=== PATIENT | female | born 1970 | race Two or more races ===

== ENCOUNTER 2017-11-30 14:52 | Inpatient (IN) | payer OTHER ==
[2017-11-30 17:02] VITALS: BMI 33.5
--- NOTE | 2017-11-30 19:05 | HP ---
CIWA Score - CIWA Score Nausea/Vomitin Muscle Tremors: 3 Anxiety: 2 Agitation: 2 Paroxysmal Sweats: 2 Orientation: 0-Oriented Tacttile Disturbances: 1-Very Mild Itch/Numbness Auditory Disturbances: 0-None Visual Disturbances: 2-Mild Sensitivity Headache: 2-Mild CIWA-Ar Total Score: 17 Admission ROS S - HPI Chief Complaint: " I was in [facility] yesterday and they send me here today" Allergies/Adverse Reactions: Allergies Allergy/AdvReac Type Severity Reaction Status Date / Time No Known Allergies Allergy Verified 11/30/17 17:40 History of Present Illness: 47 yo female with hx of alcohol dependence is here seeking detox. Patient reports she went yesterday to [facility] for vaginal bleed, reports menses is irregular and skips and 2-3 months at time. As per patient member was advised at [facility] to follow up with dramatic art teacher. Patient reports hx HTN with no medication tx, hx depression, denies any other medical problems. Patient denies suicidal / homicidal ideation. Denies hx of suicide attempts. Denies hx of seizures or blackouts. Reports last detox [facility] 2 years ago. Reports no significant period of sobriety. Exam Limitations: No Limitations - Ebola screening Have you traveled outside of the country in the last 21 days: No Have you had contact with anyone from an Ebola affected area: No Have you been sick,other than usual withdrawal symptoms: No Do you have a fever: No - Review of Systems Constitutional: Chills, Loss of Appetite, Changes in sleep, Unintentional Wgt. Loss EENT: reports: Blurred Vision (wears glasses) Respiratory: reports: No Symptoms reported Cardiac: reports: No Symptoms Reported GI: reports: See HPI, Constipated (reports occasional constipation with alternation diarrhea), Diarrhea, Nausea, Poor Appetite, Indigestion : reports: See HPI, Dysuria, Other (ocassional episodes of incontinence) Musculoskeletal: reports: Back Pain (bilateral pain, raiding down to down knees) , Joint Pain (both knees) Integumentary: reports: No Symptoms Reported Neuro: reports: Headache Endocrine: reports: Increased Thirst Hematology: reports: No Symptoms Reported Psychiatric: reports: Orientated x3, Depressed Other Systems: Reviewed and Negative Patient History - Patient Medical History Hx Anemia: No Hx Asthma: No Hx Chronic Obstructive Pulmonary Disease (COPD): No Hx Cancer: No Hx Cardiac Disorders: No Hx Congestive Heart Failure: No Hx Hypertension: Yes Hx Hypercholesterolemia: No Hx Pacemaker: No HX Cerebrovascular Accident: No Hx Seizures: No Hx Dementia: No Hx Diabetes: No Hx Gastrointestinal Disorders: No Hx Liver Disease: No Hx Genitourinary Disorders: Yes (irregular periods with heavy bleeding ) Hx Sexually Transmitted Disorders: No Hx Renal Disease (ESRD): No Hx Thyroid Disease: No Hx Hepatitis C: No Hx Depression: Yes Hx Suicide Attempt: No Hx Bipolar Disorder: No Hx Schizophrenia: No - Patient Surgical History Past Surgical History: No Hx Neurologic Surgery: No Hx Cataract Extraction: No Hx Cardiac Surgery: No Hx Lung Surgery: No Hx Breast Surgery: No Hx Breast Biopsy: No Hx Abdominal Surgery: No Hx Appendectomy: No Hx Cholecystectomy: No Hx Genitourinary Surgery: No Hx Section: No Hx Orthopedic Surgery: No Hx Hysterectomy: No Anesthesia Reaction: No - PPD History Previous Implant?: No Documented Results: Negative w/o proof PPD to be Administered?: Yes - Reproductive History Patient is a Female of Child Bearing Age (11 -55 yrs old): Yes Last Menstrual Period: 11/26/17 LMP comment: abnormal periods, skips months and with heavy flow Patient : No - Smoking Cessation Smoking history: Never smoked Have you smoked in the past 12 months: No Hx Chewing Tobacco Use: No Initiated information on smoking cessation: No - Substance & Tx. History Hx Alcohol Use: Yes Hx Substance Use: Yes Substance Use Type: Alcohol Hx Substance Use Treatment: Yes ([facility] 2 years ago ) - Substances Abused Alcohol Route: Oral Frequency: Daily Amount used: liquor- 1 pint Age of first use: 13 Date of Last Use: 11/29/17 Family Disease History - Family Disease History Family Disease History: Other: Father (, unkown ), Mother (, unkown ) Admission Physical Exam BHS - Vital Signs Vital Signs: Vital Signs - 24 hr 11/30/17 17:01 Temperature 98.5 F Pulse Rate 85 Respiratory 18 Rate Blood Pressure 168/109 - Physical General Appearance: Yes: Disheveled, Mild Distress, Tremorous (both hands), Irritable, Anxious, Other (malodorous) HEENTM: Yes: EOMI, Hearing grossly Normal, Normal ENT Inspection, Normocephalic , Normal Voice, JASVIR, Pharynx Normal, Tm's normal Respiratory: Yes: Chest Non-Tender, Lungs Clear, Normal Breath Sounds, No Respiratory Distress, No Accessory Muscle Use Neck: Yes: No masses,lesions,Nodules, Trachea in good position Breast: Yes: Breast Exam Deferred Cardiology: Yes: Regular Rhythm, Regular Rate Abdominal: Yes: Normal Bowel Sounds, Non Tender, Soft, Protuberent Genitourinary: Yes: Dysuria, Pain (ocassional periods of incontinence) Back: Yes: Normal Inspection Musculoskeletal: Yes: full range of Motion, Gait Steady, Pelvis Stable, Back pain Extremities: Yes: Normal Capillary Refill, Normal Inspection, Normal Range of Motion, Non-Tender Neurological: Yes: log cutter II-XII NML intact, Fully Oriented, Alert, Motor Strength 5/5, Depressed Affect Integumentary: Yes: Normal Color, Warm, Diaphoresis Lymphatic: Yes: Within Normal Limits - Diagnostic (1) Dysuria Current Visit: Yes Status: Acute (2) Back pain Current Visit: Yes Status: Acute Qualifiers: Back pain location: low back pain Chronicity: acute Back pain laterality : midline Sciatica presence: with sciatica Sciatica laterality: bilateral sciatica Qualified Code(s): M54.42 - Lumbago with sciatica, left side; M54.41 - Lumbago with sciatica, right side; M54.41 - Lumbago with sciatica, right side (3) Alcohol dependence with withdrawal Current Visit: Yes Status: Acute Qualifiers: Complication of substance-induced condition: uncomplicated Qualified Code(s ): F10.230 - Alcohol dependence with withdrawal, uncomplicated (4) Obese Current Visit: Yes Status: Acute Qualifiers: Obesity type: unspecified obesity type Body mass index: BMI 33.0-33.9 (5) Abnormal menses Current Visit: Yes Status: Acute (6) Anxious appearance Current Visit: Yes Status: Acute (7) Tremor due to drug withdrawal Current Visit: Yes Status: Acute Cleared for Admission S - Detox or Rehab [facility] Level of Care: Medically Managed Detox Regimen/Protocol: Librium [facility] Breath Alcohol Content Breath Alcohol Content: 0 Urine Pregancy Test - Result Urine Test Results: Negative- NO Line Present Urine Drug Screen - Results Drug Screen Negative: No Urine Drug Screen Results: BZO-Benzodiazepines
[2017-11-30] MEDS ORDERED: ACETAMINOPHEN 325 MG TABLET (FP) PO PRN (19:12)
[2017-11-30] MEDS ORDERED: MAGNESIUM HYDROX 2400MG/30ML ORAL SUSPENSION 30 ML CUP PO PRN (19:12)
[2017-11-30] MEDS ORDERED: chlordiazePOXIDE HCL 25 MG CAPSULE PO ONE (19:12)
[2017-11-30] MEDS ORDERED: chlordiazePOXIDE HCL 25 MG CAPSULE PO PRN (19:12)
[2017-11-30] MEDS ORDERED: P-EPHED 60MG/TRIPROLIDI 2.5MG TABLET PO PRN (19:12)
[2017-11-30] MEDS ORDERED: MENTHOL/PHENOL 1 EACH UD MM PRN (19:12)
[2017-11-30] MEDS ORDERED: LOPERAMIDE HCL 2 MG CAPSULE PO PRN (19:12)
[2017-11-30] MEDS ORDERED: MAGNESIUM CITRATE 300 ML BOTTLE PO PRN (19:12)
[2017-11-30] MEDS ORDERED: hydrOXYzine PAMOATE 50 MG CAPSULE (FP) PO PRN (19:12)
[2017-11-30] MEDS ORDERED: MAG HYDROX/AL HYDROX/SIMETH 30 ML UNIT-DOSE CUP PO PRN (19:12)
[2017-11-30] MEDS ORDERED: IBUPROFEN 400 MG TABLET (FP) PO PRN (19:12)
[2017-11-30] MEDS ORDERED: guaiFENesin/D-METHORPHAN HB 10 ML UNIT-DOSE CUPS PO PRN (19:12)
[2017-11-30] MEDS ORDERED: cloNIDine HCL 0.1 MG TABLET PO ONE (19:19)
[2017-11-30] MEDS: LIDOCAINE 5% TOPICAL PATCH TP SCH (20:08)
[2017-11-30] MEDS ORDERED: MELATONIN 5 MG TABLETS PO PRN (22:00)
[2017-11-30] MEDS ORDERED: LIDOCAINE PATCH REMOVAL MC SCH (22:00)
[2017-11-30] MEDS ORDERED: THIAMINE HCL 100 MG TABLET (FP) PO SCH (22:00)
[2017-11-30] MEDS: chlordiazePOXIDE HCL 25 MG CAPSULE PO SCH (22:33)
[2017-11-30 22:59] LABS: URINE APPEARANCE SLCLOUDY; URINE BILIRUBIN NEGATIVE (<2.0 mg/dL); URINE COLOR AMBER; URINE GLUCOSE (UA) NEGATIVE (NEGATIVE); URINE KETONE NEGATIVE (NEGATIVE); URINE LEUK ESTERASE NEGATIVE (NEGATIVE); URINE NITRITE NEGATIVE (NEGATIVE); URINE UROBILINOGEN 4.0 E.U/dl mg/dL (0.2-1.0)
[2017-11-30 23:18] LABS: URINE PROTEIN 1+ (NEGATIVE)
[2017-11-30 23:21] LABS: EPI CELLS RARE /HPF (FEW); URINE MUCUS RARE
[2017-12-01] MEDS: chlordiazePOXIDE HCL 25 MG CAPSULE PO SCH ×3 (05:26→17:27)
--- NOTE | 2017-12-01 09:42 | CONSULT ---
[facility] Psychiatric Consult - Data Date of interview: 12/01/17 Admission source: [facility] Identifying data: Patient is a 47 year old female, mother of six, unemployed, and currently homeless. This is patient's first admission to [facility]. Pt. admitted to for alcohol dependence. Substance Abuse History: Following information confirmed with Ms. Reagan: Smoking Cessation. Smoking history: Never smoked. Have you smoked in the past 12 months: No. Hx Chewing Tobacco Use: No. Initiated information on smoking cessation: No. - Substance & Tx. History. Hx Alcohol Use: Yes. Hx Substance Use: Yes. Substance Use Type: Alcohol. Hx Substance Use Treatment: Yes ( [facility] 2 years ago ). - Substances Abused. Alcohol. Route: Oral. Frequency: Daily. Amount used: liquor- 1 pint. Age of first use: 13. Date of Last Use: 11/29/17 Medical History: Hx Genitourinary Disorders: Yes (irregular periods with heavy bleeding) Psychiatric History: Patient denies h/o psychiatric hospitalizations, outpatient care, and suicide attempt. Patient reports poor sleep. Physical/Sexual Abuse/Trauma History: Denies. Mental Status Exam - Mental Status Exam Alert and Oriented to: Time, Place, Person Cognitive Function: Good Patient Appearance: Well Groomed Mood: Withdrawn, Euthymic Affect: Mood Congruent Patient Behavior: Cooperative Speech Pattern: Appropriate Voice Loudness: Normal Thought Process: Goal Oriented Thought Disorder: Not Present Hallucinations: Denies Suicidal Ideation: Denies Homicidal Ideation: Denies Insight/Judgement: Poor Sleep: Poorly Appetite: Fair Muscle strength/Tone: Normal Gait/Station: Normal Psychiatric Findings - Problem List ([facility] 1, 2,3) (1) Alcohol dependence with withdrawal Current Visit: Yes Status: Acute Qualifiers: Complication of substance-induced condition: uncomplicated Qualified Code(s ): F10.230 - Alcohol dependence with withdrawal, uncomplicated (2) Insomnia Current Visit: Yes Status: Acute - Initial Treatment Plan Initial Treatment Plan: Psychoeducation provided. Detoxification provided. Melatonin 5mg ordered by SERVICES ACCOUNT MANAGER. Melatonin 5mg not given to patient on first night. Pt. advised to ask for melatonin 5mg when accepting evening medications. Will continue to monitor.
[2017-12-01] MEDS ORDERED: PRENATAL VITAMINS W/ FOLIC ACID TABLET (FP) PO SCH (10:00)
--- NOTE | 2017-12-01 10:09 | PN ---
S CIWA - CIWA Score Nausea/Vomitin Muscle Tremors: 3 Anxiety: 3 Agitation: 2 Paroxysmal Sweats: 1-Minimal Palms Moist Orientation: 0-Oriented Tacttile Disturbances: 1-Very Mild Itch/Numbness Auditory Disturbances: 1-Very Mild Visual Disturbances: 0-None Headache: 2-Mild CIWA-Ar Total Score: 16 BHS Progress Note (SOAP) Subjective: ALERT,IRRITABLE,ANXIOUS,TREMOR,INTERRUPTED SLEEP Objective: 12/01/17 10:05 Vital Signs Temperature 98.2 F 12/01/17 08:45 Pulse Rate 68 12/01/17 08:45 Respiratory Rate 18 12/01/17 08:45 Blood Pressure 145/96 12/01/17 08:45 O2 Sat by Pulse Oximetry (%) EKG NSR PROLONG QT 380/446 12/01/17 10:08 Laboratory Last Values Urine Color Grisel 11/30/17 22:49 Urine Appearance Slcloudy 11/30/17 22:49 Urine pH 8.0 (5.0-8.0) 11/30/17 22:49 Ur Specific De[place] 1.018 (1.001-1.035) 11/30/17 22:49 Urine Protein 1+ (NEGATIVE) H 11/30/17 22:49 Urine Glucose (UA) Negative (NEGATIVE) 11/30/17 22:49 Urine Ketones Negative (NEGATIVE) 11/30/17 22:49 Urine Blood 3+ (NEGATIVE) H 11/30/17 22:49 Urine Nitrite Negative (NEGATIVE) 11/30/17 22:49 Urine Bilirubin Negative (<2.0 mg/dL) 11/30/17 22:49 Urine Urobilinogen 4.0 e.u/dl mg/dL (0.2-1.0) H 11/30/17 22:49 Ur Leukocyte Esterase Negative (NEGATIVE) 11/30/17 22:49 Urine WBC (Auto) 48 /hpf (3-5) 11/30/17 22:49 Urine RBC (Auto) 1083 /hpf (0-3) 11/30/17 22:49 Ur Epithelial Cells Rare /HPF (FEW) 11/30/17 22:49 Urine Mucus Rare 11/30/17 22:49 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
[2017-12-01 10:17] LABS: HEMATOCRIT 24.9 % (32.4-45.2); HEMOGLOBIN 7.9 GM/dL (10.7-15.3); MCH 25.2 pg (25.7-33.7); MCHC 31.7 g/dl (32.0-36.0); MEAN CELL VOLUME 79.3 fl (80-96); MEAN PLT VOLUME 8.3 fl (7.5-11.1); RBC 3.14 M/mm3 (3.60-5.2); RDW 20.9 % (11.6-15.6)
[2017-12-01 10:24] LABS: CHLORIDE 102 mmol/L (98-107); POTASSIUM 3.3 mmol/L (3.5-5.1); SODIUM 138 mmol/L (136-145)
[2017-12-01 10:40] LABS: ALK PHOS 59 U/L (45-117); ANION GAP 8 (8-16); BILIRUBIN,TOTAL 2.1 mg/dL (0.2-1.0); BLOOD UREA NITROGEN 5 mg/dL (7-18); CALCIUM 7.7 mg/dL (8.5-10.1); CO2 28 mmol/L (21-32); CREATININE 0.7 mg/dL (0.55-1.02); GLUCOSE,RANDOM 91 mg/dL (74-106); SGOT/AST 52 U/L (15-37); SGPT/ALT 24 U/L (12-78); TOT PROT 6.4 g/dl (6.4-8.2)
[2017-12-01 10:57] LABS: WHITE BLOOD COUNT 1.2 K/mm3 (4.0-10.0)
[2017-12-01] MEDS: LIDOCAINE 5% TOPICAL PATCH TP SCH (11:03)
--- NOTE | 2017-12-01 11:47 | PN ---
S Progress Note Note: Laboratory Last Values WBC 1.2 K/mm3 (4.0-10.0) L* 12/01/17 07:00 RBC 3.14 M/mm3 (3.60-5.2) L 12/01/17 07:00 Hgb 7.9 GM/dL (10.7-15.3) L 12/01/17 07:00 Hct 24.9 % (32.4-45.2) L 12/01/17 07:00 MCV 79.3 fl (80-96) L 12/01/17 07:00 MCH 25.2 pg (25.7-33.7) L 12/01/17 07:00 MCHC 31.7 g/dl (32.0-36.0) L 12/01/17 07:00 RDW 20.9 % (11.6-15.6) H 12/01/17 07:00 MPV 8.3 fl (7.5-11.1) 12/01/17 07:00 Sodium 138 mmol/L (136-145) 12/01/17 07:00 Potassium 3.3 mmol/L (3.5-5.1) L 12/01/17 07:00 Chloride 102 mmol/L (98-107) 12/01/17 07:00 Carbon Dioxide 28 mmol/L (21-32) 12/01/17 07:00 Anion Gap 8 (8-16) 12/01/17 07:00 BUN 5 mg/dL (7-18) L 12/01/17 07:00 Creatinine 0.7 mg/dL (0.55-1.02) 12/01/17 07:00 Creat Clearance w eGFR > 60 (>60) 12/01/17 07:00 Random Glucose 91 mg/dL (74-106) 12/01/17 07:00 Calcium 7.7 mg/dL (8.5-10.1) L 12/01/17 07:00 Total Bilirubin 2.1 mg/dL (0.2-1.0) H 12/01/17 07:00 AST 52 U/L (15-37) H 12/01/17 07:00 ALT 24 U/L (12-78) 12/01/17 07:00 Alkaline Phosphatase 59 U/L (45-117) 12/01/17 07:00 Total Protein 6.4 g/dl (6.4-8.2) 12/01/17 07:00 Albumin 3.0 g/dl (3.4-5.0) L 12/01/17 07:00 Urine Color Grisel 11/30/17 22:49 Urine Appearance Slcloudy 11/30/17 22:49 Urine pH 8.0 (5.0-8.0) 11/30/17 22:49 Ur Specific [place] 1.018 (1.001-1.035) 11/30/17 22:49 Urine Protein 1+ (NEGATIVE) H 11/30/17 22:49 Urine Glucose (UA) Negative (NEGATIVE) 11/30/17 22:49 Urine Ketones Negative (NEGATIVE) 11/30/17 22:49 Urine Blood 3+ (NEGATIVE) H 11/30/17 22:49 Urine Nitrite Negative (NEGATIVE) 11/30/17 22:49 Urine Bilirubin Negative (<2.0 mg/dL) 11/30/17 22:49 Urine Urobilinogen 4.0 e.u/dl mg/dL (0.2-1.0) H 11/30/17 22:49 Ur Leukocyte Esterase Negative (NEGATIVE) 11/30/17 22:49 Urine WBC (Auto) 48 /hpf (3-5) 11/30/17 22:49 Urine RBC (Auto) 1083 /hpf (0-3) 11/30/17 22:49 Ur Epithelial Cells Rare /HPF (FEW) 11/30/17 22:49 Urine Mucus Rare 11/30/17 22:49 patient have heavy vaginal bleeding for 6 days to er at [facility] for evaluation and treatment discussed with dr Gallego patient will be transported by [facility]
--- NOTE | 2017-12-01 12:01 | EKG ---
Test Reason : Blood Pressure : / mmHG Vent. Rate : 083 BPM Atrial Rate : 083 BPM P-R Int : 148 ms QRS Dur : 084 ms QT Int : 380 ms P-R-T Axes : 055 007 020 degrees QTc Int : 446 ms NORMAL SINUS RHYTHM NORMAL ECG NO PREVIOUS ECGS AVAILABLE Confirmed by MD PORFIRIO, BRODY ([id number]) on 12/01/2017 12:00:52 PM Referred By: Confirmed By:BRODY MONROY MD
[2017-12-01 12:28] LABS: PLATELET COUNT 32 K/MM3 (134-434)
[2017-12-01 14:03] VITALS: BP 138/95; PULSE 70; TEMP 97.9
[2017-12-01] MEDS ORDERED: chlordiazePOXIDE HCL 25 MG CAPSULE PO SCH (23:00)
[2017-12-02] MEDS ORDERED: chlordiazePOXIDE 5 MG CAPSULE PO SCH (23:00)
[2017-12-03] MEDS ORDERED: chlordiazePOXIDE HCL 10 MG CAPSULE PO SCH (23:00)
--- NOTE | 2017-12-04 16:29 | DS ---
[facility] Detox Discharge Summary Admission Date: 11/30/17 Discharge Date: 12/01/17 - History Present History: Alcohol Dependence Additional Comments: Routine blood work was done and results abnormal were called by the lab and entered on the screen for abnormal critical values and Dr Velarde was notified of the same. The doctor spoke to the pt and she stated to him that she is homeless and has had vaginal bleeding for six days and did not see a doctor or get treatment or tell anyone. She is alert and oriented, times three, no respiratory distress or compliants of pain or discomfort, BP 136/95, PULSE 76, RESP.[address] Velarde gave report to Dr Gallego in [facility] ER and this communications writer gave report to Monserrat Osman RN in the ER at and [facility] corina was called and the patient was transfered via a stretcher to [facility] accompanied by [facility] ambulance staff AT 12:15 PM and Km Swenson RN nurse manager [employer] was notifed of the transfer. At this time the pt. remains in [facility] ER for evaluation. Pertinent Past History: withdrawal sx, dehydration ,menorrhagia - Physical Exam Results Vital Signs: Vital Signs Temperature 97.9 F 12/01/17 12:00 Pulse Rate 70 12/01/17 12:00 Respiratory Rate 18 12/01/17 12:00 Blood Pressure 138/95 12/01/17 12:00 O2 Sat by Pulse Oximetry (%) Laboratory Tests 11/30/17 12/01/17 12/01/17 22:49 07:00 07:00 WBC 1.2 L* RBC 3.14 L Hgb 7.9 L Hct 24.9 L MCV 79.3 L MCH 25.2 L MCHC 31.7 L RDW 20.9 H Plt Count 32 L* MPV 8.3 Manual Slide Review Platelet Comment No clotting detected Sodium 138 Potassium 3.3 L Chloride 102 Carbon Dioxide 28 Anion Gap 8 BUN 5 L Creatinine 0.7 Creat Clearance w eGFR > 60 Random Glucose 91 Calcium 7.7 L Total Bilirubin 2.1 H AST 52 H ALT 24 Alkaline Phosphatase 59 Total Protein 6.4 Albumin 3.0 L Urine Color Grisel Urine Appearance Slcloudy Urine pH 8.0 Ur Specific [place] 1.018 Urine Protein 1+ H Urine Glucose (UA) Negative Urine Ketones Negative Urine Blood 3+ H Urine Nitrite Negative Urine Bilirubin Negative Urine Urobilinogen 4.0 e.u/dl H Ur Leukocyte Esterase Negative Urine WBC (Auto) 48 Urine RBC (Auto) 1083 Ur Epithelial Cells Rare Urine Mucus Rare RPR Titer 12/01/17 07:00 WBC RBC Hgb Hct MCV MCH MCHC RDW Plt Count MPV Manual Slide Review Platelet Comment Sodium Potassium Chloride Carbon Dioxide Anion Gap BUN Creatinine Creat Clearance w eGFR Random Glucose Calcium Total Bilirubin AST ALT Alkaline Phosphatase Total Protein Albumin Urine Color Urine Appearance Urine pH Ur Specific [place] Urine Protein Urine Glucose (UA) Urine Ketones Urine Blood Urine Nitrite Urine Bilirubin Urine Urobilinogen Ur Leukocyte Esterase Urine WBC (Auto) Urine RBC (Auto) Ur Epithelial Cells Urine Mucus RPR Titer Nonreactive hypokalemia, k suppllemented Pertinent Admission Physical Exam Findings: withdrawal sx, dehydration - Treatment Hospital Course: Detox Protocol Followed Patient has Accepted a Rehab Referral to: transferred to [facility] for work up for bleeding will return to rehab when me - Medication Discharge Medications: Ambulatory Orders Escitalopram Oxalate [Lexapro -] 5 mg PO DAILY #0 tablet 12/04/17 - Diagnosis (1) Alcohol dependence with withdrawal Status: Acute Qualifiers: Complication of substance-induced condition: uncomplicated Qualified Code(s ): F10.230 - Alcohol dependence with withdrawal, uncomplicated (2) Back pain Status: Acute Qualifiers: Back pain location: low back pain Chronicity: acute Back pain laterality : midline Sciatica presence: with sciatica Sciatica laterality: bilateral sciatica Qualified Code(s): M54.42 - Lumbago with sciatica, left side; M54.41 - Lumbago with sciatica, right side; M54.41 - Lumbago with sciatica, right side (3) Cholestasis Status: Acute (4) Depression Status: Acute (5) Insomnia Status: Acute (6) Major depression Status: Acute (7) Menometrorrhagia Status: Acute (8) Neutropenia Status: Acute (9) Obese Status: Acute Qualifiers: Obesity type: unspecified obesity type Body mass index: BMI 33.0-33.9 (10) Pancytopenia Status: Acute (11) Thrombocytopenia Status: Acute (12) Vaginal bleeding Status: Acute - AMA Did Patient Leave Against Medical Advice: No
== END 2017-12-01 16:03 | disposition short-term general hospital (02) | DRG 775 ==
LOC: YASAS 14:52 → Y6N 17:54
PROVIDERS: ADMIT Surgery; ATTEND Surgery
PROC: HZ2ZZZZ Detoxification Services for Substance Abuse Treatment (ICD-10-PCS; principal; 2017-11-30)
DX: F10.230 Alcohol dependence with withdrawal, uncomplicated (principal); F41.8 Other specified anxiety disorders; I10 Essential (primary) hypertension; G47.00 Insomnia, unspecified; G25.1 Drug-induced tremor; N93.9 Abnormal uterine and vaginal bleeding, unspecified; N92.6 Irregular menstruation, unspecified; R30.0 Dysuria; M54.42 Lumbago with sciatica, left side; E66.9 Obesity, unspecified; Z68.33 Body mass index [BMI] 33.0-33.9, adult; Z59.0 Homelessness
CPT/HCPCS: 36415; 80053; 81003; 81015; 85027; 86593; 93005; 93010; J0735

== ENCOUNTER 2017-12-01 12:29 | Inpatient (IN) | payer OTHER ==
--- NOTE | 2017-12-01 12:33 | PDOC ---
History of Present Illness - General Stated Complaint: VAGINAL BLEED Time Seen by Provider: 12/01/17 12:32 - History of Present Illness Initial Comments: 12/01/17 12:37 Ms. Reagan is a 47 yo female w/ pmh of HTN and alcohol abuse who presents from [facility] detox program (alcohol detox) after lab workup revealed concerning values (low). Sent here for further evaluation. She reportedly presented two days ago to [facility] for evaluation of vaginal bleed; presented to detox after being discharged with no interventions. Ms. Reagan reports that her menses are irregular and this is the 2nd time they have been intermittent. She does not believe she is menstruating normally at this time as she reports passing clots as well. Last librium dose was 50mg given at 1100. The patient denies chest pain, shortness of breath, headache and dizziness. Denies fever, chills, nausea, vomit, diarrhea and constipation. Denies dysuria, frequency, urgency and hematuria. Allergies: NKDA Past History - Past Medical History Allergies/Adverse Reactions: Allergies Allergy/AdvReac Type Severity Reaction Status Date / Time No Known Allergies Allergy Verified 11/30/17 17:40 Home Medications: Ambulatory Orders Acetaminophen [Tylenol] 650 mg PO Q4H PRN 12/01/17 Chlordiazepoxide [Librium -] 0 mg PO ASDIR 12/01/17 Lidocaine 5% Patch [Lidoderm Patch -] 1 patch TP DAILY 12/01/17 Melatonin 5 mg PO HS PRN 12/01/17 Vit/Iron Fum/Folic AC [ Tablet] 1 each PO DAILY 12/01/17 Thiamine HCl [B-1] 100 mg PO DAILY 12/01/17 hydrOXYzine PAMOATE [Vistaril -] 50 mg PO Q4H PRN 12/01/17 Anemia: No Asthma: No Cancer: No Cardiac Disorders: No CVA: No COPD: No CHF: No Dementia: No Diabetes: No GI Disorders: No Disorders: Yes (irregular periods with heavy bleeding ) HTN: Yes Hypercholesterolemia: No Kidney Stones: No Liver Disease: No Seizures: No Thyroid Disease: No - Surgical History Abdominal Surgery: No Appendectomy: No Cardiac Surgery: No Cholecystectomy: No Lung Surgery: No Neurologic Surgery: No Orthopedic Surgery: No - Suicide/Smoking/Psychosocial Hx Smoking History: Never smoked Have you smoked in the past 12 months: No Hx Alcohol Use: Yes Drug/Substance Use Hx: Yes Substance Use Type: Alcohol Hx Substance Use Treatment: Yes ([facility] 2 years ago ) Review of Systems - Review of Systems Comments:: 12/01/17 12:57 GENERAL/CONSTITUTIONAL: No fever or chills. No weakness. HEAD, EYES, EARS, NOSE AND THROAT: No change in vision. No ear pain or discharge. No sore throat. CARDIOVASCULAR: No chest pain or shortness of breath RESPIRATORY: No cough, wheezing, or hemoptysis. GASTROINTESTINAL: No nausea, vomiting, diarrhea or constipation. GENITOURINARY: Vaginal bleeding as described. No dysuria, frequency, or change in urination. MUSCULOSKELETAL: No joint or muscle swelling or pain. No neck or back pain. SKIN: No rash NEUROLOGIC: No headache, vertigo, loss of consciousness, or change in strength/ sensation. ENDOCRINE: No increased thirst. No abnormal weight change HEMATOLOGIC/LYMPHATIC: No anemia, easy bleeding, or history of blood clots. ALLERGIC/IMMUNOLOGIC: No hives or skin allergy. *Physical Exam - Physical Exam Comments: 12/01/17 12:58 GENERAL: Awake, alert, and fully oriented, in no acute distress HEAD: No signs of trauma, normocephalic, atraumatic EYES: PERRLA, EOMI, sclera anicteric, conjunctiva clear ENT: Auricles normal inspection, hearing grossly normal, nares patent, oropharynx clear without exudates. Moist mucosa NECK: Normal ROM, supple, no lymphadenopathy, JVD, or masses LUNGS: No distress, speaks full sentences, clear to auscultation bilaterally HEART: Regular rate and rhythm, normal S1 and S2, no murmurs, rubs or gallops, peripheral pulses normal and equal bilaterally. ABDOMEN: Soft, nontender, normoactive bowel sounds. No guarding, no rebound. No masses EXTREMITIES: Normal inspection, Normal range of motion, no edema. No clubbing or cyanosis. NEUROLOGICAL: Cranial nerves II through XII grossly intact. Normal speech, normal gait, no focal sensorimotor deficits SKIN: Warm, Dry, normal turgor, no rashes or lesions noted. : No CMT, no adnexal tenderness. Blood noted in vaginal vault, patient passing clots ED Treatment Course - LABORATORY CBC & Chemistry Diagram: 12/01/17 13:15 12/01/17 13:15 Medical Decision Making - Medical Decision Making 12/01/17 13:41 Ms. Reagan is a 47 yo female w/ pmh as described who presents for evaluation of pancytopenia with vaginal bleeding noted on labs taken at [facility] yesterday. Patient currently complaining of vaginal bleeding for 6 days and pancytopenia confirmed as below. Discussed transfusion with patient who agrees. 2 units PRBC' s ordered. Paged inpatient team for admission for further care. 12/01/17 16:07 Patient admitted to hospitalist for new onset pancytopenia and acute alcohol withdrawal. Laboratory Results - last 24 hr 12/01/17 12/01/17 12/01/17 13:15 13:15 13:15 WBC 1.4 L* RBC 3.13 L Hgb 7.9 L Hct 24.8 L MCV 79.3 L MCH 25.2 L MCHC 31.8 L RDW 20.6 H Plt Count 32 L* MPV 7.1 L D Total Counted 97 Neutrophils % No Result Required. Neutrophils % (Manual) 56.7 Band Neutrophils % 0.0 Lymphocytes % No Result Required. Lymphocytes % (Manual) 35.1 Monocytes % (Manual) 4 Eosinophils % (Manual) 1.0 Basophils % (Manual) 2.1 H Myelocytes % (Man) 0 Promyelocytes % (Man) 0 Blast Cells % (Manual) 0 Nucleated RBC % 0 Metamyelocytes 0 Platelet Estimate Decreased Polychromasia 1+ Anisocytosis 2+ PT with INR 12.90 INR 1.14 PTT (Actin FS) 33.1 Sodium Potassium Chloride Carbon Dioxide Anion Gap BUN Creatinine Creat Clearance w eGFR Random Glucose Calcium Magnesium Total Bilirubin AST ALT Alkaline Phosphatase Total Protein Albumin Serum , Qual Negative Urine Color Urine Appearance Urine pH Ur Specific [place] Urine Protein Urine Glucose (UA) Urine Ketones Urine Blood Urine Nitrite Urine Bilirubin Urine Urobilinogen Ur Leukocyte Esterase Urine WBC (Auto) Urine RBC (Auto) Ur Epithelial Cells Urine Mucus Blood Type Antibody Screen Crossmatch 12/01/17 12/01/17 12/01/17 13:15 13:15 13:15 WBC RBC Hgb Hct MCV MCH MCHC RDW Plt Count MPV Total Counted Neutrophils % Neutrophils % (Manual) Band Neutrophils % Lymphocytes % Lymphocytes % (Manual) Monocytes % (Manual) Eosinophils % (Manual) Basophils % (Manual) Myelocytes % (Man) Promyelocytes % (Man) Blast Cells % (Manual) Nucleated RBC % Metamyelocytes Platelet Estimate Polychromasia Anisocytosis PT with INR INR PTT (Actin FS) Sodium 137 Potassium 3.3 L Chloride 101 Carbon Dioxide 28 Anion Gap 8 BUN 5 L Creatinine 0.9 Creat Clearance w eGFR > 60 Random Glucose 105 Calcium 8.0 L Magnesium 1.6 L Total Bilirubin 1.9 H AST 65 H ALT 28 Alkaline Phosphatase 63 Total Protein 7.0 Albumin 3.3 L Serum , Qual Urine Color Urine Appearance Urine pH Ur Specific [place] Urine Protein Urine Glucose (UA) Urine Ketones Urine Blood Urine Nitrite Urine Bilirubin Urine Urobilinogen Ur Leukocyte Esterase Urine WBC (Auto) Urine RBC (Auto) Ur Epithelial Cells Urine Mucus Blood Type O POSITIVE Antibody Screen Negative Crossmatch See Detail 12/01/17 12/01/17 13:15 13:30 WBC RBC Hgb Hct MCV MCH MCHC RDW Plt Count MPV Total Counted Neutrophils % Neutrophils % (Manual) Band Neutrophils % Lymphocytes % Lymphocytes % (Manual) Monocytes % (Manual) Eosinophils % (Manual) Basophils % (Manual) Myelocytes % (Man) Promyelocytes % (Man) Blast Cells % (Manual) Nucleated RBC % Metamyelocytes Platelet Estimate Polychromasia Anisocytosis PT with INR INR PTT (Actin FS) Sodium Potassium Chloride Carbon Dioxide Anion Gap BUN Creatinine Creat Clearance w eGFR Random Glucose Calcium Magnesium Total Bilirubin AST ALT Alkaline Phosphatase Total Protein Albumin Serum , Qual Urine Color Grisel Urine Appearance Cloudy Urine pH 8.0 Ur Specific [place] 1.029 Urine Protein 2+ H Urine Glucose (UA) Negative Urine Ketones Negative Urine Blood 3+ H Urine Nitrite Negative Urine Bilirubin 2.0 Urine Urobilinogen 4.0 e.u/dl H Ur Leukocyte Esterase Negative Urine WBC (Auto) 5 Urine RBC (Auto) 5328 Ur Epithelial Cells Rare Urine Mucus Few Blood Type O POSITIVE Antibody Screen Crossmatch See Detail *DC/Admit/Observation/Transfer Diagnosis at time of Disposition: Pancytopenia Alcohol withdrawal Qualifiers: Complication of substance-induced condition: uncomplicated Qualified Code(s): F10.230 - Alcohol dependence with withdrawal, uncomplicated - Discharge Dispostion Decision to Admit order: Yes - Referrals - Patient Instructions - Post Discharge Activity
[2017-12-01 13:25] LABS: HEMATOCRIT 24.8 % (32.4-45.2); HEMOGLOBIN 7.9 GM/dL (10.7-15.3); MCH 25.2 pg (25.7-33.7); MCHC 31.8 g/dl (32.0-36.0); MEAN CELL VOLUME 79.3 fl (80-96); MEAN PLT VOLUME 7.1 fl (7.5-11.1); RBC 3.13 M/mm3 (3.60-5.2); RDW 20.6 % (11.6-15.6)
[2017-12-01 13:40] LABS: WHITE BLOOD COUNT 1.4 K/mm3 (4.0-10.0)
[2017-12-01 13:41] LABS: ADD RBC MORPHOLOGY YES; PLATELET COUNT 32 K/MM3 (134-434)
[2017-12-01 13:53] LABS: ALBUMIN 3.3 g/dl (3.4-5.0); ANION GAP 8 (8-16); BILIRUBIN,TOTAL 1.9 mg/dL (0.2-1.0); BLOOD UREA NITROGEN 5 mg/dL (7-18); CHLORIDE 101 mmol/L (98-107); CO2 28 mmol/L (21-32); CREATININE 0.9 mg/dL (0.55-1.02); GLUCOSE,RANDOM 105 mg/dL (74-106); POTASSIUM 3.3 mmol/L (3.5-5.1); SGOT/AST 65 U/L (15-37); SGPT/ALT 28 U/L (12-78); SODIUM 137 mmol/L (136-145)
[2017-12-01 13:54] LABS: ALK PHOS 63 U/L (45-117)
[2017-12-01 13:56] LABS: URINE APPEARANCE CLOUDY; URINE COLOR AMBER; URINE GLUCOSE (UA) NEGATIVE (NEGATIVE); URINE KETONE NEGATIVE (NEGATIVE); URINE LEUK ESTERASE NEGATIVE (NEGATIVE); URINE NITRITE NEGATIVE (NEGATIVE); URINE UROBILINOGEN 4.0 E.U/dl mg/dL (0.2-1.0)
[2017-12-01 13:58] LABS: URINE PROTEIN 2+ (NEGATIVE)
[2017-12-01 14:03] LABS: INR 1.14 (0.82-1.09); PROTHROMBIN TIME (PATIENT) 12.9 SEC (9.7-13.0)
[2017-12-01 14:05] LABS: ACTIVATED PTT 33.1 SECONDS (26.9-34.4)
[2017-12-01 14:15] LABS: EPI CELLS RARE /HPF (FEW); URINE MUCUS FEW
[2017-12-01 15:04] LABS: ANISOCYTOSIS 2+; PLATELET ESTIMATE DECREASED
--- NOTE | 2017-12-01 15:17 | PDOC ---
Attending Attestation - Resident Resident Name: JosephelinRealChirag - ED Attending Attestation I have performed the following: I have examined & evaluated the patient, The case was reviewed & discussed with the resident, I agree w/resident's findings & plan - HPI HPI: 12/01/17 15:12 47-year-old female history of alcohol abuse sent from [facility], where she was admitted for detox, for further evaluation of pancytopenia on CBC. Patient reports history of heavy menses, last episode began about 3 days ago. Per her report,has never had a tranfusion or seen a shelter monitor. - Physicial Exam PE: 12/01/17 15:14 Vital signs stable Abdomen benign Positive vaginal bleeding with clots - Medical Decision Making 12/01/17 15:15 Patient seen and evaluated with the resident. I agree with the overall evaluation, assessment, and management with the following summary of visit: 47-year-old female from [facility] for further evaluation of pancytopenia. Hemoglobin 7.9, we'll begin transfusion, patient consents wbc/plts also low, no fever. Heart Score/ECG Review #1 ECG reviewed & interpreted by me at: 12:53 General ECG Interpretation: Sinus Rhythm, Normal Rate (72), Normal Intervals ( qtc 475), No acute ischemic changes
--- NOTE | 2017-12-01 15:50 | HP ---
CHIEF COMPLAINT: Heavy menses with clots x 6 days PCP: None HISTORY OF PRESENT ILLNESS: 47 year-old female with a PMH significant for HTN, depression, ETOH abuse, chronic back pain, and menorrhagia. She is tearful at the time of this admission and providing limited information. She states she was on the street two days ago and passersby observed her bleeding (vaginally) through her clothes and called an ambulance. She was seen in [place] ED and was told her "counts are low" although she was not transfused. From [place] she was sent to [facility] for alcohol detox. She was evaluated at [facility] and sent to the ED earlier today for heavy menses with clots x 6 days and pancytopenia. She has gone through 4 pads today. Patient is homeless, lives on the streets. She was recently treated for dysuria in a hospital with IV antibiotics but she cannot be more specific. She goes to many different EDs for her health care. She takes no medications on a regular basis. Spoke with patient's , Heaven Reagan [phone]. Patient has been drinking and living on the streets and in shelters for 4-5 years. Their 5 children live with him. She does not take drugs as far as he knows. He last saw her August 2017. He recalls her mentioning she has heavy vaginal bleeding and that doctors told her she has to be careful. ER course was notable for: (1) WBC 1.4, platelets 32k, Hgb 7.9 (2) Total bili 1.9, AST 65 (3) K 3.3, Mg 1.6 (4) ECG: (5) Transfused 1U PRBC Recent Travel: No PAST MEDICAL HISTORY: Hypertension Depression ETOH abuse Chronic back pain Menorrhagia PAST SURGICAL HISTORY: None reported Social History: Mother of six, unemployed, homeless; and children live in [place] Smoking: never Alcohol: drinks daily; last drink 11/29/17; last detox [place] x 2 years Drugs: denies Family History: Allergies No Known Allergies Allergy (Verified 11/30/17 17:40) HOME MEDICATIONS: Home Medications Medication Instructions Recorded Acetaminophen [Tylenol] 650 mg PO Q4H PRN 12/01/17 Chlordiazepoxide [Librium -] 0 mg PO ASDIR 12/01/17 Lidocaine 5% Patch [Lidoderm Patch 1 patch TP DAILY 12/01/17 -] Melatonin 5 mg PO HS PRN 12/01/17 Vit/Iron Fum/Folic AC 1 each PO DAILY 12/01/17 [ Tablet] Thiamine HCl [B-1] 100 mg PO DAILY 12/01/17 hydrOXYzine PAMOATE [Vistaril -] 50 mg PO Q4H PRN 12/01/17 REVIEW OF SYSTEMS: cannot reliably obtain PHYSICAL EXAMINATION Vital Signs - 24 hr 12/01/17 12/01/17 12:38 13:28 Temperature 98.2 F Pulse Rate 73 Pulse Rate [ 67 Apical] Respiratory 18 18 Rate Blood Pressure 118/76 Blood Pressure 137/92 [Left Arm] O2 Sat by Pulse 100 100 Oximetry (%) GENERAL: Awake, alert, and fully oriented, in no acute distress. HEAD: Normal with no signs of trauma. EYES: Pupils equal, round and reactive to light, extraocular movements intact, sclera anicteric, conjunctiva clear. No lid lag. EARS, NOSE, THROAT: Ears normal, nares patent, oropharynx clear without exudates. Moist mucous membranes. NECK: Normal range of motion, supple without lymphadenopathy, JVD, or masses. LUNGS: Breath sounds equal, clear to auscultation bilaterally. No wheezes, and no crackles. No accessory muscle use. HEART: Regular rate and rhythm, normal S1 and S2 without murmur, rub or gallop. ABDOMEN: Soft, nontender, not distended, normoactive bowel sounds, no guarding, no rebound MUSCULOSKELETAL: Normal range of motion at all joints. No bony deformities or tenderness. No CVA tenderness. UPPER EXTREMITIES: 2+ pulses, warm, well-perfused. No cyanosis. No clubbing. No peripheral edema. LOWER EXTREMITIES: 2+ pulses, warm, well-perfused. No calf tenderness. No peripheral edema. NEUROLOGICAL: Cranial nerves II-XII intact. Normal speech. Mild bilateral hand tremors, no asterixis. PSYCHIATRIC: Tearful. Flat affect. "I have nobody." SKIN: Warm, dry, normal turgor Laboratory Results - last 24 hr 12/01/17 12/01/17 12/01/17 13:15 13:15 13:15 WBC 1.4 L* RBC 3.13 L Hgb 7.9 L Hct 24.8 L MCV 79.3 L MCH 25.2 L MCHC 31.8 L RDW 20.6 H Plt Count 32 L* MPV 7.1 L D Total Counted 97 Neutrophils % No Result Required. Neutrophils % (Manual) 56.7 Band Neutrophils % 0.0 Lymphocytes % No Result Required. Lymphocytes % (Manual) 35.1 Monocytes % (Manual) 4 Eosinophils % (Manual) 1.0 Basophils % (Manual) 2.1 H Myelocytes % (Man) 0 Promyelocytes % (Man) 0 Blast Cells % (Manual) 0 Nucleated RBC % 0 Metamyelocytes 0 Platelet Estimate Decreased Polychromasia 1+ Anisocytosis 2+ PT with INR 12.90 INR 1.14 PTT (Actin FS) 33.1 Sodium Potassium Chloride Carbon Dioxide Anion Gap BUN Creatinine Creat Clearance w eGFR Random Glucose Calcium Magnesium Total Bilirubin AST ALT Alkaline Phosphatase Total Protein Albumin Serum , Qual Negative Urine Color Urine Appearance Urine pH Ur Specific [place] Urine Protein Urine Glucose (UA) Urine Ketones Urine Blood Urine Nitrite Urine Bilirubin Urine Urobilinogen Ur Leukocyte Esterase Urine WBC (Auto) Urine RBC (Auto) Ur Epithelial Cells Urine Mucus Blood Type Antibody Screen Crossmatch 12/01/17 12/01/17 12/01/17 13:15 13:15 13:15 WBC RBC Hgb Hct MCV MCH MCHC RDW Plt Count MPV Total Counted Neutrophils % Neutrophils % (Manual) Band Neutrophils % Lymphocytes % Lymphocytes % (Manual) Monocytes % (Manual) Eosinophils % (Manual) Basophils % (Manual) Myelocytes % (Man) Promyelocytes % (Man) Blast Cells % (Manual) Nucleated RBC % Metamyelocytes Platelet Estimate Polychromasia Anisocytosis PT with INR INR PTT (Actin FS) Sodium 137 Potassium 3.3 L Chloride 101 Carbon Dioxide 28 Anion Gap 8 BUN 5 L Creatinine 0.9 Creat Clearance w eGFR > 60 Random Glucose 105 Calcium 8.0 L Magnesium 1.6 L Total Bilirubin 1.9 H AST 65 H ALT 28 Alkaline Phosphatase 63 Total Protein 7.0 Albumin 3.3 L Serum , Qual Urine Color Urine Appearance Urine pH Ur Specific [place] Urine Protein Urine Glucose (UA) Urine Ketones Urine Blood Urine Nitrite Urine Bilirubin Urine Urobilinogen Ur Leukocyte Esterase Urine WBC (Auto) Urine RBC (Auto) Ur Epithelial Cells Urine Mucus Blood Type O POSITIVE Antibody Screen Negative Crossmatch See Detail 12/01/17 12/01/17 13:15 13:30 WBC RBC Hgb Hct MCV MCH MCHC RDW Plt Count MPV Total Counted Neutrophils % Neutrophils % (Manual) Band Neutrophils % Lymphocytes % Lymphocytes % (Manual) Monocytes % (Manual) Eosinophils % (Manual) Basophils % (Manual) Myelocytes % (Man) Promyelocytes % (Man) Blast Cells % (Manual) Nucleated RBC % Metamyelocytes Platelet Estimate Polychromasia Anisocytosis PT with INR INR PTT (Actin FS) Sodium Potassium Chloride Carbon Dioxide Anion Gap BUN Creatinine Creat Clearance w eGFR Random Glucose Calcium Magnesium Total Bilirubin AST ALT Alkaline Phosphatase Total Protein Albumin Serum , Qual Urine Color Grisel Urine Appearance Cloudy Urine pH 8.0 Ur Specific [place] 1.029 Urine Protein 2+ H Urine Glucose (UA) Negative Urine Ketones Negative Urine Blood 3+ H Urine Nitrite Negative Urine Bilirubin 2.0 Urine Urobilinogen 4.0 e.u/dl H Ur Leukocyte Esterase Negative Urine WBC (Auto) 5 Urine RBC (Auto) 5328 Ur Epithelial Cells Rare Urine Mucus Few Blood Type O POSITIVE Antibody Screen Crossmatch See Detail ASSESSMENT/PLAN 47 year-old female with a PMH significant for HTN, depression, ETOH abuse, chronic back pain, and menorrhagia. Admitted for pancytopenia and acute alcohol withdrawal. Pancytopenia --transfuse 2U PRBCs, Lasix in between --transfuse 1U platelets --retic count, LDH, haptoglobin, fibrinogen --B12, folate, iron studies --Dr. Odom to follow Acute alcohol withdrawal --continuing librium taper started at [facility] --check ammonia level --continue folate, thiamine Hypertension --has h/o HTN, on no meds, likely exacerbated by ETOH withdrawal --metoprolol 25mg x 1 now, reassess Hyperbilirubinemia Transaminitis --US liver pending --GI consult requested Menorrhagia --transfuse as above --FUR POLISHER consult requested Depression --not on meds, denies h/o psych hospitalizations Dispo: Patient requested her be notified. Spoke with patient's , Heaven Reagan [phone] (see above). Please keep notified of progress. Full code. Visit type - Emergency Visit Emergency Visit: Yes ED Registration Date: 12/01/17 Care time: The patient presented to the Emergency Department on the above date and was hospitalized for further evaluation of their emergent condition. - New Patient This patient is new to me today: Yes Date on this admission: 12/02/17 - Critical Care Critical Care patient: No Hospitalist Screening - Colonoscopy Questionnaire Colonoscopy Questionnaire: Colonoscopy Questionnaire - Patient: 50 - 75 years old and never had a screening colonoscopy: No History of colon or rectal polyps, or CA: No History of IBD, Crohn's disease or UC: No History of abdominal radiation therapy as a child: No - Relative: 1 with colon or rectal CA, or polyps at age 60 or younger: Unknown Colon or rectal CA diagnosed at age 45 or younger: Unknown Multiple relatives with colon or rectal CA: Unknown - Outcome: Screening Result: Negative Screen
[2017-12-01] MEDS ORDERED: MELATONIN 5 MG TABLETS PO PRN (16:45)
[2017-12-01] MEDS ORDERED: hydrOXYzine PAMOATE 50 MG CAPSULE (FP) PO PRN (16:45)
--- NOTE | 2017-12-01 17:07 | EKG ---
Test Reason : Blood Pressure : / mmHG Vent. Rate : 072 BPM Atrial Rate : 072 BPM P-R Int : 148 ms QRS Dur : 092 ms QT Int : 434 ms P-R-T Axes : 034 002 013 degrees QTc Int : 475 ms NORMAL SINUS RHYTHM CANNOT RULE OUT ANTERIOR INFARCT , AGE UNDETERMINED ABNORMAL ECG Confirmed by MD PORFIRIO, BRODY ([id number]) on 12/01/2017 5:07:41 PM Referred By: Confirmed By:BRODY MONROY MD
[2017-12-01] MEDS ORDERED: MAGNESIUM SULF 50% (8.12 MEQ/2 ML-1 GM VIAL) IVPB ONE (17:09)
[2017-12-01] MEDS ORDERED: chlordiazePOXIDE HCL 25 MG CAPSULE PO PRN (17:15)
[2017-12-01] MEDS ORDERED: MAGNESIUM SULFATE IN WATER 2 GM/50 ML IVPB IVPB ONE (17:15)
[2017-12-01] MEDS ORDERED: MAGNESIUM SULF 50% (8.12 MEQ/2 ML-1 GM VIAL) ONE (17:29)
[2017-12-01] MEDS ORDERED: chlordiazePOXIDE HCL 25 MG CAPSULE ONE (17:29)
[2017-12-01] MEDS ORDERED: FUROSEMIDE 40 MG/4 ML INJECTABLE VIAL ONE (17:30)
[2017-12-01] MEDS ORDERED: FUROSEMIDE 40 MG/4 ML INJECTABLE VIAL IVPUSH ONE (17:30)
[2017-12-01] MEDS ORDERED: POTASSIUM CHLORIDE ORAL LIQUID 20 MEQ/15 ML ONE (17:30)
[2017-12-01] MEDS ORDERED: chlordiazePOXIDE HCL 25 MG CAPSULE PO ONE (17:30)
[2017-12-01] MEDS: POTASSIUM CHLORIDE ORAL LIQUID 20 MEQ/15 ML PO SCH ×2 (17:39→23:20)
[2017-12-01 18:59] LABS: N-TERMINAL BNP 439.64 pg/ml (5-125)
[2017-12-01] MEDS ORDERED: METOPROLOL TARTRATE 25 MG TABLET (FP) PO STA (19:11)
[2017-12-01] MEDS ORDERED: METOPROLOL TARTRATE 25 MG TABLET (FP) ONE (19:47)
[2017-12-01 21:57] VITALS: BMI 31.8
[2017-12-01] MEDS: LIDOCAINE PATCH REMOVAL MC SCH (22:18)
[2017-12-01] MEDS: chlordiazePOXIDE HCL 25 MG CAPSULE PO SCH (23:20)
[2017-12-02] MEDS: chlordiazePOXIDE HCL 25 MG CAPSULE PO SCH ×3 (05:32→16:45)
--- NOTE | 2017-12-02 08:58 | CON.GI ---
Consult Consult Specialty:: GI Reason for Consultation:: history of alcohol abuse, transaminitis, cholestasis - History of Present Illness History of Present Illness: chart reviewed. Events noted. As per initial intake: 47 year-old female with a PMH significant for HTN, depression, ETOH abuse, chronic back pain, and menorrhagia. She is tearful at the time of this admission and providing limited information. She states she was on the street two days ago and passersby observed her bleeding (vaginally) through her clothes and called an ambulance. She was seen in [place] ED and was told her "counts are low" although she was not transfused. From [place] she was sent to [facility] for alcohol detox. She was evaluated at [facility] and sent to the ED earlier today for heavy menses with clots x 6 days and pancytopenia. She has gone through 4 pads today. Patient is homeless, lives on the streets. She was recently treated for dysuria in a hospital with IV antibiotics but she cannot be more specific. She goes to many different EDs for her health care. She takes no medications on a regular basis. ...Patient has been drinking and living on the streets and in shelters for 4-5 years. Their 5 children live with Her . She does not take drugs as far as he knows. He last saw her August 2017. He recalls her mentioning she has heavy vaginal bleeding and that doctors told her she has to be careful. at the time of this encountered the patient appears to be depressed, crying confirms the above history. Denies having formal liver workup in the past. reports no significant gastrointestinal family history. On admission she is noted to have microcytic, hypochromic anemia with normal ferritin. Thrombocytopenia, neutropenia. No iron profile available at this time. She also noted to have mild cholestasis with total bili slightly elevated. AST twice the ALT. Normal alk phos and PT INR. Fatty liver on ultrasound of the abdomen. - History Source History Provided By: Patient, Medical Record, Caregiver - Past Medical History ...LMP: 11/26/17 ...: No - Alcohol/Substance Use Hx Alcohol Use: Yes - Smoking History Smoking history: Never smoked Have you smoked in the past 12 months: No Home Medications - Allergies Allergies/Adverse Reactions: Allergies Allergy/AdvReac Type Severity Reaction Status Date / Time No Known Allergies Allergy Verified 11/30/17 17:40 - Home Medications Home Medications: Ambulatory Orders Acetaminophen [Tylenol] 650 mg PO Q4H PRN 12/01/17 Chlordiazepoxide [Librium -] 0 mg PO ASDIR 12/01/17 Lidocaine 5% Patch [Lidoderm Patch -] 1 patch TP DAILY 12/01/17 Melatonin 5 mg PO HS PRN 12/01/17 Vit/Iron Fum/Folic AC [ Tablet] 1 each PO DAILY 12/01/17 Thiamine HCl [B-1] 100 mg PO DAILY 12/01/17 hydrOXYzine PAMOATE [Vistaril -] 50 mg PO Q4H PRN 12/01/17 Family Disease History - Family Disease History Family Disease History: Other: Father (, unkown ), Mother (, unkown ) Physical Exam-GI Vital Signs: Vital Signs Temperature 98.6 F 12/02/17 05:55 Pulse Rate 65 12/02/17 05:55 Respiratory Rate 20 12/02/17 05:55 Blood Pressure 145/87 12/02/17 05:55 O2 Sat by Pulse Oximetry (%) 99 12/01/17 22:10 Constitutional: Yes: Calm Eyes: Yes: Conjunctiva Clear HENT: Yes: Atraumatic Neck: Yes: Supple Cardiovascular: No: Bradycardia, Tachycardia Respiratory: Yes: Regular Gastrointestinal Inspection: Yes: Distention. No: Ascites ...Auscultate: Yes: Normoactive Bowel Sounds ...Palpate: Yes: Soft. No: Firm/Rigid, Guarding, Mass, Tenderness, Tenderness, Rebound Neurological: Yes: Alert, Oriented. No: Asterixis, Confusion, Lethargy, Tremors Labs: CBC, BMP 12/01/17 13:15 12/01/17 13:15 INR, PTT INR 1.14 (0.82-1.09) 12/01/17 13:15 Fibrinogen 186.0 mg/dL (238-498) L 12/01/17 18:25 Laboratory Last Values WBC 1.4 K/mm3 (4.0-10.0) L* 12/01/17 13:15 RBC 3.13 M/mm3 (3.60-5.2) L 12/01/17 13:15 Hgb 7.9 GM/dL (10.7-15.3) L 12/01/17 13:15 Hct 24.8 % (32.4-45.2) L 12/01/17 13:15 MCV 79.3 fl (80-96) L 12/01/17 13:15 MCH 25.2 pg (25.7-33.7) L 12/01/17 13:15 MCHC 31.8 g/dl (32.0-36.0) L 12/01/17 13:15 RDW 20.6 % (11.6-15.6) H 12/01/17 13:15 Plt Count 32 K/MM3 (134-434) L* 12/01/17 13:15 MPV 7.1 fl (7.5-11.1) L D 12/01/17 13:15 Total Counted 97 12/01/17 13:15 Neutrophils % No Result Required. 12/01/17 13:15 Neutrophils % (Manual) 56.7 % (42.8-82.8) 12/01/17 13:15 Band Neutrophils % 0.0 % 12/01/17 13:15 Lymphocytes % No Result Required. 12/01/17 13:15 Lymphocytes % (Manual) 35.1 % (8-40) 12/01/17 13:15 Monocytes % (Manual) 4 % (3.8-10.2) 12/01/17 13:15 Eosinophils % (Manual) 1.0 % (0-4.5) 12/01/17 13:15 Basophils % (Manual) 2.1 % (0-2.0) H 12/01/17 13:15 Myelocytes % (Man) 0 % (0-2) 12/01/17 13:15 Promyelocytes % (Man) 0 % (0-2) 12/01/17 13:15 Blast Cells % (Manual) 0 % (0-0) 12/01/17 13:15 Nucleated RBC % 0 % (0-0) 12/01/17 13:15 Metamyelocytes 0 % (0-2) 12/01/17 13:15 Platelet Estimate Decreased 12/01/17 13:15 Polychromasia 1+ 12/01/17 13:15 Anisocytosis 2+ 12/01/17 13:15 Retic Count 1.92 % (0.5-1.5) H 12/01/17 18:25 PT with INR 12.90 SEC (9.7-13.0) 12/01/17 13:15 INR 1.14 (0.82-1.09) 12/01/17 13:15 PTT (Actin FS) 33.1 SECONDS (26.9-34.4) 12/01/17 13:15 Fibrinogen 186.0 mg/dL (238-498) L 12/01/17 18:25 Sodium 137 mmol/L (136-145) 12/01/17 13:15 Potassium 3.3 mmol/L (3.5-5.1) L 12/01/17 13:15 Chloride 101 mmol/L (98-107) 12/01/17 13:15 Carbon Dioxide 28 mmol/L (21-32) 12/01/17 13:15 Anion Gap 8 (8-16) 12/01/17 13:15 BUN 5 mg/dL (7-18) L 12/01/17 13:15 Creatinine 0.9 mg/dL (0.55-1.02) 12/01/17 13:15 Creat Clearance w eGFR > 60 (>60) 12/01/17 13:15 Random Glucose 105 mg/dL (74-106) 12/01/17 13:15 Calcium 8.0 mg/dL (8.5-10.1) L 12/01/17 13:15 Magnesium 1.6 mg/dL (1.8-2.4) L 12/01/17 13:15 Ferritin 64.500 ng/ml (6.9-282.5) 12/01/17 18:25 Total Bilirubin 1.9 mg/dL (0.2-1.0) H 12/01/17 13:15 AST 65 U/L (15-37) H 12/01/17 13:15 ALT 28 U/L (12-78) 12/01/17 13:15 Alkaline Phosphatase 63 U/L (45-117) 12/01/17 13:15 Ammonia < 10 umol/L (11-32) L 12/01/17 18:25 LD Total 172 U/L (84-246) 12/01/17 18:25 B-Natriuretic Peptide 439.64 pg/ml (5-125) H 12/01/17 18:25 Total Protein 7.0 g/dl (6.4-8.2) 12/01/17 13:15 Albumin 3.3 g/dl (3.4-5.0) L 12/01/17 13:15 Serum , Qual Negative 12/01/17 13:15 Urine Color [place] 12/01/17 13:30 Urine Appearance Cloudy 12/01/17 13:30 Urine pH 8.0 (5.0-8.0) 12/01/17 13:30 Ur Specific [place] 1.029 (1.001-1.035) 12/01/17 13:30 Urine Protein 2+ (NEGATIVE) H 12/01/17 13:30 Urine Glucose (UA) Negative (NEGATIVE) 12/01/17 13:30 Urine Ketones Negative (NEGATIVE) 12/01/17 13:30 Urine Blood 3+ (NEGATIVE) H 12/01/17 13:30 Urine Nitrite Negative (NEGATIVE) 12/01/17 13:30 Urine Bilirubin 2.0 (<2.0 mg/dL) 12/01/17 13:30 Urine Urobilinogen 4.0 e.u/dl mg/dL (0.2-1.0) H 12/01/17 13:30 Ur Leukocyte Esterase Negative (NEGATIVE) 12/01/17 13:30 Urine WBC (Auto) 5 /hpf (3-5) 12/01/17 13:30 Urine RBC (Auto) 5328 /hpf (0-3) 12/01/17 13:30 Ur Epithelial Cells Rare /HPF (FEW) 12/01/17 13:30 Urine Mucus Few 12/01/17 13:30 Blood Type O POSITIVE 12/01/17 13:15 Antibody Screen Negative 12/01/17 13:15 Crossmatch See Detail 12/01/17 13:15 Imaging - Results Ultrasound: Report Reviewed Problem List - Problems (1) Vaginal bleeding Code(s): N93.9 - ABNORMAL UTERINE AND VAGINAL BLEEDING, UNSPECIFIED (2) Cholestasis Code(s): K83.1 - OBSTRUCTION OF BILE DUCT (3) Alcohol dependence with withdrawal Code(s): F10.239 - ALCOHOL DEPENDENCE WITH WITHDRAWAL, UNSPECIFIED Qualifiers: Complication of substance-induced condition: uncomplicated Qualified Code(s ): F10.230 - Alcohol dependence with withdrawal, uncomplicated (4) Thrombocytopenia Code(s): D69.6 - THROMBOCYTOPENIA, UNSPECIFIED (5) Neutropenia Code(s): D70.9 - NEUTROPENIA, UNSPECIFIED Assessment/Plan A 47-year-old female with history of alcohol abuse admitted with vaginal bleeding. Noted to have thrombocytopenia, neutropenia, microcytic, hypochromic anemia and mild cholestasis with a normal coagulation profile. ? Alcohol-related bone marrow suppression. no clear cut picture suggesting liver cirrhosis. Possible alcoholic hepatitis, alcoholic fatty liver disease. Recommend evaluation by SIGN BUILDER and hematology. agree with substance withdrawal protocol. Will obtain viral and autoimmune serologies, iron profile. Will follow.
--- NOTE | 2017-12-02 09:30 | CONSULT ---
Consult Consult Specialty:: Hematology - History of Present Illness History of Present Illness: 47-year-old female history of alcohol abuse sent from [facility], where she was admitted for detox, for further evaluation of pancytopenia on CBC. Patient reports history of heavy menses, last episode began about 3 days ago. Pt seen and examined d/w yesterday - History Source History Provided By: Patient, Medical Record - Past Medical History ...LMP: 11/26/17 ...: No - Alcohol/Substance Use Hx Alcohol Use: Yes - Smoking History Smoking history: Never smoked Have you smoked in the past 12 months: No Home Medications - Allergies Allergies/Adverse Reactions: Allergies Allergy/AdvReac Type Severity Reaction Status Date / Time No Known Allergies Allergy Verified 11/30/17 17:40 - Home Medications Home Medications: Ambulatory Orders Acetaminophen [Tylenol] 650 mg PO Q4H PRN 12/01/17 Chlordiazepoxide [Librium -] 0 mg PO ASDIR 12/01/17 Lidocaine 5% Patch [Lidoderm Patch -] 1 patch TP DAILY 12/01/17 Melatonin 5 mg PO HS PRN 12/01/17 Vit/Iron Fum/Folic AC [ Tablet] 1 each PO DAILY 12/01/17 Thiamine HCl [B-1] 100 mg PO DAILY 12/01/17 hydrOXYzine PAMOATE [Vistaril -] 50 mg PO Q4H PRN 12/01/17 Family Disease History - Family Disease History Family Disease History: Other: Father (, unkown ), Mother (, unkown ) Physical Exam Vital Signs: Vital Signs Temperature 98.6 F 12/02/17 05:55 Pulse Rate 65 12/02/17 05:55 Respiratory Rate 20 12/02/17 05:55 Blood Pressure 145/87 12/02/17 05:55 O2 Sat by Pulse Oximetry (%) 99 12/01/17 22:10 Constitutional: Yes: Mild Distress Eyes: Yes: Tearing HENT: Yes: Atraumatic, Normocephalic Neck: Yes: Supple Cardiovascular: Yes: Regular Rate and Rhythm Respiratory: Yes: Regular, CTA Bilaterally Gastrointestinal: Yes: Normal Bowel Sounds, Soft, Abdomen, Obese Edema: No Labs: CBC, BMP 12/01/17 13:15 12/01/17 13:15 Imaging - Results Ultrasound: Report Reviewed Problem List - Problems (1) Thrombocytopenia Code(s): D69.6 - THROMBOCYTOPENIA, UNSPECIFIED (2) Major depression Code(s): F32.9 - MAJOR DEPRESSIVE DISORDER, SINGLE EPISODE, UNSPECIFIED Qualifiers: Major depression recurrence: single episode Major depression episode severity: severe Psychotic features: without psychotic features (3) Depression Code(s): F32.9 - MAJOR DEPRESSIVE DISORDER, SINGLE EPISODE, UNSPECIFIED (4) Pancytopenia Code(s): D61.818 - OTHER PANCYTOPENIA (5) Alcohol dependence with withdrawal Code(s): F10.239 - ALCOHOL DEPENDENCE WITH WITHDRAWAL, UNSPECIFIED Qualifiers: Complication of substance-induced condition: uncomplicated Qualified Code(s ): F10.230 - Alcohol dependence with withdrawal, uncomplicated (6) Tremor due to drug withdrawal Code(s): G25.1 - DRUG-INDUCED TREMOR (7) Abnormal menses Code(s): N92.6 - IRREGULAR MENSTRUATION, UNSPECIFIED Assessment/Plan Pancytopenia: Alcohol induced BM suppression likely Supportive care w/u including---B12, folate, ldh, JAH regular transfusion threshold Vaginal bleeding worsened in the setting of thrombocytopenia appreciate INSURANCE CONSULTANT c/s daily CBC Very tearful psych consult called.
[2017-12-02] MEDS ORDERED: PATIENT'S OWN MEDICATION (NON-FORMULARY) (Prenatal Vit/Iron Fum/Folic Ac [Prenatal Tablet] PO SCH (10:00)
[2017-12-02] MEDS: THIAMINE HCL 100 MG TABLET (FP) PO SCH (10:10)
[2017-12-02] MEDS ORDERED: PT OWN MED DRAWER 7, Y5N ONE (10:13)
--- NOTE | 2017-12-02 10:22 | CON.OBG ---
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 History of Present Illness: pt c/o heavy bleeding for 7 days now Current menst hx for 6 months : Irregular cycle 2-3 months x 7-10 days heavy flow , no pain except backache Changes 4 pads/day . passes blood clots Past MH before 6 months cycle q 28-30 days x bleeding for 3 days . patient is not currently sexually active Denies h/o STD & Contraception Past OB HX : 6 ( 1988, 1991, 1997, 1998, 2000, 2010.) LD at [facility] 1 ind Ab, 2 sp ab Last Engineering Program Manager visit 7 years ago, did not see anyone since LD Does not know pap smear history She denies h/o fibroids or ovarian cysts inpast no h/o D&C in past - History Source History Provided By: Patient, Medical Record Limitations to Obtaining History: No Limitations - Past Medical History Cardio/Vascular: Yes: HTN (no meds ) Gastrointestinal: Yes: Other (denies h/o vomoting blood or rectal bleeding ) Renal/: Yes: Other (denies urinary symptoms ) Reproductive: No: Fibroids, PID, Polycystic Ovary Syndrome, Postmenopausal ...LMP: 11/26/17 ...: No ...: 9 () ...Para: 6 (LD 2010. ) Heme/Onc: Yes: Anemia Infectious Disease: No: STD's Psych: Yes: Depression Musculoskeletal: Yes: Chronic low back pain - Past Surgical History Past Surgical History: Yes: None - Alcohol/Substance Use Hx Alcohol Use: Yes (drinks 1 pint /day/ since 2010 , ) History of Substance Use: reports: None - Smoking History Smoking history: Never smoked Have you smoked in the past 12 months: No - Social History Usual Living Arrangement: Other (she states she left her spouse because he was cheating on her , she lived in different shelters , sometimes homeless.) Home Medications - Allergies Allergies/Adverse Reactions: Allergies Allergy/AdvReac Type Severity Reaction Status Date / Time No Known Allergies Allergy Verified 11/30/17 17:40 - Home Medications Home Medications: Ambulatory Orders Acetaminophen [Tylenol] 650 mg PO Q4H PRN 12/01/17 Chlordiazepoxide [Librium -] 0 mg PO ASDIR 12/01/17 Lidocaine 5% Patch [Lidoderm Patch -] 1 patch TP DAILY 12/01/17 Melatonin 5 mg PO HS PRN 12/01/17 Vit/Iron Fum/Folic AC [ Tablet] 1 each PO DAILY 12/01/17 Thiamine HCl [B-1] 100 mg PO DAILY 12/01/17 hydrOXYzine PAMOATE [Vistaril -] 50 mg PO Q4H PRN 12/01/17 Family Disease History - Family Disease History Family Disease History: Other: Father (, unkown ), Mother (, unkown ) Physical Exam-CULINARY DIRECTOR Vital Signs: Vital Signs Temperature 98.6 F 12/02/17 05:55 Pulse Rate 65 12/02/17 05:55 Respiratory Rate 20 12/02/17 05:55 Blood Pressure 145/87 12/02/17 05:55 O2 Sat by Pulse Oximetry (%) 99 12/01/17 22:10 Constitutional: Yes: Obese, Pallor Eyes: Yes: PERRL, Other (muddy sclera) Gastrointestinal: Yes: Abdomen, Obese. No: Tenderness, Tenderness, Epigastrium , Tenderness, Rebound Renal/: Yes: Vaginal Bleeding. No: Pelvis: Yes: WNL. No: Tenderness External Genitalia: Yes: Normal Internal Exam Deferred: Yes Vaginal Exam: Yes: Bleeding (with clots) Cervix: Yes: Bleeding (from cervix , no mass noted). No: Cerv Motion Tenderness Uterus: Yes: Freely Moveable, Anteverted, Enlarged (6-8 weeks size), Firm. No: Tender Adnexa: Normal: Bilateral, Not Palpable: Bilateral (not tender ) Breast(s): Yes: WNL. No: Mass Extremities: No: Calf Tenderness Edema: No Integumentary: Yes: Jaundice. No: Petechiae Psychiatric: Yes: Alert, Oriented, Other (tearing & sad) Labs: CBC, BMP 12/01/17 13:15 12/01/17 13:15 Laboratory Tests 12/01/17 12/01/17 12/01/17 13:15 13:15 13:15 RBC 3.13 L Neutrophils % (Manual) 56.7 Lymphocytes % (Manual) 35.1 Retic Count PT with INR 12.90 INR 1.14 PTT (Actin FS) 33.1 Fibrinogen Total Bilirubin AST ALT Alkaline Phosphatase Ammonia Total Protein Albumin Serum , Qual Negative Urine Protein Urine Blood Urine Bilirubin Urine Urobilinogen Ur Leukocyte Esterase Urine WBC (Auto) Urine RBC (Auto) 12/01/17 12/01/17 12/01/17 13:15 13:30 18:25 RBC Neutrophils % (Manual) Lymphocytes % (Manual) Retic Count PT with INR INR PTT (Actin FS) Fibrinogen 186.0 L Total Bilirubin 1.9 H AST 65 H ALT 28 Alkaline Phosphatase 63 Ammonia Total Protein 7.0 Albumin 3.3 L Serum , Qual Urine Protein 2+ H Urine Blood 3+ H Urine Bilirubin 2.0 Urine Urobilinogen 4.0 e.u/dl H Ur Leukocyte Esterase Negative Urine WBC (Auto) 5 Urine RBC (Auto) 5328 12/01/17 12/01/17 18:25 18:25 RBC Neutrophils % (Manual) Lymphocytes % (Manual) Retic Count 1.92 H PT with INR INR PTT (Actin FS) Fibrinogen Total Bilirubin AST ALT Alkaline Phosphatase Ammonia < 10 L Total Protein Albumin Serum , Qual Urine Protein Urine Blood Urine Bilirubin Urine Urobilinogen Ur Leukocyte Esterase Urine WBC (Auto) Urine RBC (Auto) Problem List - Problems (1) Menometrorrhagia Code(s): N92.1 - EXCESSIVE AND FREQUENT MENSTRUATION WITH IRREGULAR CYCLE (2) Pancytopenia Code(s): D61.818 - OTHER PANCYTOPENIA (3) Neutropenia Code(s): D70.9 - NEUTROPENIA, UNSPECIFIED (4) Thrombocytopenia Code(s): D69.6 - THROMBOCYTOPENIA, UNSPECIFIED (5) Alcohol withdrawal Code(s): F10.239 - ALCOHOL DEPENDENCE WITH WITHDRAWAL, UNSPECIFIED (6) Depression Code(s): F32.9 - MAJOR DEPRESSIVE DISORDER, SINGLE EPISODE, UNSPECIFIED Assessment/Plan 47 yrs menometrorrhgia secondary to pancytopenia , thrombocytopenia anemai . anovulatory cycles perimenopause , resulting in menorrhagia & anemia . fatty liver secondary to alcoholism depression Recommend : Pelvic /TVSono r/o uterine pathology, em thickness, ovarian pathology ( polycystic ovaries) Em pathology will be prudent to obtain by doing diagnostic as well as therapeutic D&C but due to thrombocytopenia surgical procedure can not be done . emperically will start progesterone in Megace 40 mg po daily to stop bleeding will follow up agree with psyche consult
[2017-12-02] MEDS: PRENATAL VITAMINS W/ FOLIC ACID TABLET (FP) PO SCH ×2 (10:24→12:52)
[2017-12-02 10:27] LABS: BASO % 0.5 % (0-2.0); EOS % 2.9 % (0-4.5); HEMATOCRIT 34.7 % (32.4-45.2); LYMPH % 48.9 % (8-40); MCH 25.8 pg (25.7-33.7); MCHC 31.7 g/dl (32.0-36.0); MEAN CELL VOLUME 81.4 fl (80-96); MEAN PLT VOLUME 9.1 fl (7.5-11.1); MONO % 7.8 % (3.8-10.2); NEUT % 39.9 % (42.8-82.8); PLATELET COUNT 50 K/MM3 (134-434); RBC 4.27 M/mm3 (3.60-5.2); WHITE BLOOD COUNT 2.2 K/mm3 (4.0-10.0)
[2017-12-02 10:40] LABS: ALBUMIN 3.6 g/dl (3.4-5.0); ALK PHOS 74 U/L (45-117); ANION GAP 7 (8-16); BLOOD UREA NITROGEN 5 mg/dL (7-18); CHLORIDE 102 mmol/L (98-107); CO2 28 mmol/L (21-32); CREATININE 0.8 mg/dL (0.55-1.02); GLUCOSE,RANDOM 84 mg/dL (74-106); MAGNESIUM 2.4 mg/dL (1.8-2.4); POTASSIUM 3.6 mmol/L (3.5-5.1); SGOT/AST 75 U/L (15-37); SGPT/ALT 31 U/L (12-78); SODIUM 137 mmol/L (136-145); TOT PROT 7.7 g/dl (6.4-8.2)
--- NOTE | 2017-12-02 11:14 | PN ---
Physical Exam: SUBJECTIVE: Patient seen and examined sitting on edge of bed. OBJECTIVE: Vital Signs Period Temp Pulse Resp BP Sys/Infante Pulse Ox Last 24 Hr 97.9 F-99.1 F 63-80 18-20 118-168/75-102 98-100 GENERAL: The patient is awake, alert. Tearful. LUNGS: Breath sounds equal, clear to auscultation bilaterally, no wheezes, no crackles, no accessory muscle use. HEART: Regular rate and rhythm, S1, S2 without murmur, rub or gallop. ABDOMEN: Soft, nontender, nondistended, normoactive bowel sounds, no guarding, no rebound EXTREMITIES: 2+ pulses, warm, well-perfused, no edema. NEUROLOGICAL: Cranial nerves II through XII grossly intact. Normal speech, steady gait. Hand tremors resolved. No signs of withdrawal. SKIN: Warm, dry, normal turgor Laboratory Results - last 24 hr 12/01/17 12/01/17 12/01/17 13:15 13:15 13:15 WBC 1.4 L* RBC 3.13 L Hgb 7.9 L Hct 24.8 L MCV 79.3 L MCH 25.2 L MCHC 31.8 L RDW 20.6 H Plt Count 32 L* MPV 7.1 L D Total Counted 97 Neutrophils % No Result Required. Neutrophils % (Manual) 56.7 Band Neutrophils % 0.0 Lymphocytes % No Result Required. Lymphocytes % (Manual) 35.1 Monocytes % Monocytes % (Manual) 4 Eosinophils % Eosinophils % (Manual) 1.0 Basophils % Basophils % (Manual) 2.1 H Myelocytes % (Man) 0 Promyelocytes % (Man) 0 Blast Cells % (Manual) 0 Nucleated RBC % 0 Metamyelocytes 0 Platelet Estimate Decreased Polychromasia 1+ Anisocytosis 2+ Retic Count PT with INR 12.90 INR 1.14 PTT (Actin FS) 33.1 Fibrinogen Sodium Potassium Chloride Carbon Dioxide Anion Gap BUN Creatinine Creat Clearance w eGFR Random Glucose Calcium Magnesium Ferritin Total Bilirubin AST ALT Alkaline Phosphatase Ammonia LD Total B-Natriuretic Peptide Total Protein Albumin Serum , Qual Negative Urine Color Urine Appearance Urine pH Ur Specific [place] Urine Protein Urine Glucose (UA) Urine Ketones Urine Blood Urine Nitrite Urine Bilirubin Urine Urobilinogen Ur Leukocyte Esterase Urine WBC (Auto) Urine RBC (Auto) Ur Epithelial Cells Urine Mucus Blood Type Antibody Screen Crossmatch 12/01/17 12/01/17 12/01/17 13:15 13:15 13:15 WBC RBC Hgb Hct MCV MCH MCHC RDW Plt Count MPV Total Counted Neutrophils % Neutrophils % (Manual) Band Neutrophils % Lymphocytes % Lymphocytes % (Manual) Monocytes % Monocytes % (Manual) Eosinophils % Eosinophils % (Manual) Basophils % Basophils % (Manual) Myelocytes % (Man) Promyelocytes % (Man) Blast Cells % (Manual) Nucleated RBC % Metamyelocytes Platelet Estimate Polychromasia Anisocytosis Retic Count PT with INR INR PTT (Actin FS) Fibrinogen Sodium 137 Potassium 3.3 L Chloride 101 Carbon Dioxide 28 Anion Gap 8 BUN 5 L Creatinine 0.9 Creat Clearance w eGFR > 60 Random Glucose 105 Calcium 8.0 L Magnesium 1.6 L Ferritin Total Bilirubin 1.9 H AST 65 H ALT 28 Alkaline Phosphatase 63 Ammonia LD Total B-Natriuretic Peptide Total Protein 7.0 Albumin 3.3 L Serum , Qual Urine Color Urine Appearance Urine pH Ur Specific [place] Urine Protein Urine Glucose (UA) Urine Ketones Urine Blood Urine Nitrite Urine Bilirubin Urine Urobilinogen Ur Leukocyte Esterase Urine WBC (Auto) Urine RBC (Auto) Ur Epithelial Cells Urine Mucus Blood Type O POSITIVE Antibody Screen Negative Crossmatch See Detail 12/01/17 12/01/17 12/01/17 13:15 13:30 18:25 WBC RBC Hgb Hct MCV MCH MCHC RDW Plt Count MPV Total Counted Neutrophils % Neutrophils % (Manual) Band Neutrophils % Lymphocytes % Lymphocytes % (Manual) Monocytes % Monocytes % (Manual) Eosinophils % Eosinophils % (Manual) Basophils % Basophils % (Manual) Myelocytes % (Man) Promyelocytes % (Man) Blast Cells % (Manual) Nucleated RBC % Metamyelocytes Platelet Estimate Polychromasia Anisocytosis Retic Count PT with INR INR PTT (Actin FS) Fibrinogen Sodium Potassium Chloride Carbon Dioxide Anion Gap BUN Creatinine Creat Clearance w eGFR Random Glucose Calcium Magnesium Ferritin 64.500 Total Bilirubin AST ALT Alkaline Phosphatase Ammonia LD Total B-Natriuretic Peptide Total Protein Albumin Serum , Qual Urine Color Grisel Urine Appearance Cloudy Urine pH 8.0 Ur Specific [place] 1.029 Urine Protein 2+ H Urine Glucose (UA) Negative Urine Ketones Negative Urine Blood 3+ H Urine Nitrite Negative Urine Bilirubin 2.0 Urine Urobilinogen 4.0 e.u/dl H Ur Leukocyte Esterase Negative Urine WBC (Auto) 5 Urine RBC (Auto) 5328 Ur Epithelial Cells Rare Urine Mucus Few Blood Type O POSITIVE Antibody Screen Crossmatch See Detail 12/01/17 12/01/17 12/01/17 18:25 18:25 18:25 WBC RBC Hgb Hct MCV MCH MCHC RDW Plt Count MPV Total Counted Neutrophils % Neutrophils % (Manual) Band Neutrophils % Lymphocytes % Lymphocytes % (Manual) Monocytes % Monocytes % (Manual) Eosinophils % Eosinophils % (Manual) Basophils % Basophils % (Manual) Myelocytes % (Man) Promyelocytes % (Man) Blast Cells % (Manual) Nucleated RBC % Metamyelocytes Platelet Estimate Polychromasia Anisocytosis Retic Count 1.92 H PT with INR INR PTT (Actin FS) Fibrinogen 186.0 L Sodium Potassium Chloride Carbon Dioxide Anion Gap BUN Creatinine Creat Clearance w eGFR Random Glucose Calcium Magnesium Ferritin Total Bilirubin AST ALT Alkaline Phosphatase Ammonia LD Total 172 B-Natriuretic Peptide 439.64 H Total Protein Albumin Serum , Qual Urine Color Urine Appearance Urine pH Ur Specific [place] Urine Protein Urine Glucose (UA) Urine Ketones Urine Blood Urine Nitrite Urine Bilirubin Urine Urobilinogen Ur Leukocyte Esterase Urine WBC (Auto) Urine RBC (Auto) Ur Epithelial Cells Urine Mucus Blood Type Antibody Screen Crossmatch 12/01/17 12/02/17 12/02/17 18:25 10:20 10:20 WBC 2.2 L D RBC 4.27 D Hgb 11.0 D Hct 34.7 D MCV 81.4 MCH 25.8 MCHC 31.7 L RDW 20.0 H Plt Count 50 L D MPV 9.1 D Total Counted Neutrophils % 39.9 L Neutrophils % (Manual) Band Neutrophils % Lymphocytes % 48.9 H Lymphocytes % (Manual) Monocytes % 7.8 Monocytes % (Manual) Eosinophils % 2.9 Eosinophils % (Manual) Basophils % 0.5 Basophils % (Manual) Myelocytes % (Man) Promyelocytes % (Man) Blast Cells % (Manual) Nucleated RBC % Metamyelocytes Platelet Estimate Polychromasia Anisocytosis Retic Count PT with INR INR PTT (Actin FS) Fibrinogen Sodium 137 Potassium 3.6 Chloride 102 Carbon Dioxide 28 Anion Gap 7 L BUN 5 L Creatinine 0.8 Creat Clearance w eGFR > 60 Random Glucose 84 Calcium 8.0 L Magnesium 2.4 Ferritin Total Bilirubin 2.0 H AST 75 H ALT 31 Alkaline Phosphatase 74 Ammonia < 10 L LD Total B-Natriuretic Peptide Total Protein 7.7 Albumin 3.6 Serum , Qual Urine Color Urine Appearance Urine pH Ur Specific [place] Urine Protein Urine Glucose (UA) Urine Ketones Urine Blood Urine Nitrite Urine Bilirubin Urine Urobilinogen Ur Leukocyte Esterase Urine WBC (Auto) Urine RBC (Auto) Ur Epithelial Cells Urine Mucus Blood Type Antibody Screen Crossmatch Active Medications Generic Name Dose Route Start Last Admin Trade Name Freq PRN Reason Stop Dose Admin Chlordiazepoxide HCl 25 mg 12/01/17 23:00 12/02/17 10:10 Librium - PO 12/02/17 17:01 25 mg [id number] CON Administration Chlordiazepoxide HCl 15 mg 12/02/17 23:00 Librium - PO 12/03/17 17:01 [id number] CON Chlordiazepoxide HCl 25 mg 12/01/17 17:15 Librium - PO 12/04/17 17:14 Q4H PRN WITHDRAWAL(CONT SUBST) Hydroxyzine Pamoate 50 mg 12/01/17 16:45 Vistaril - PO Q4H PRN itcheness Lidocaine 1 patch 12/02/17 10:00 Lidoderm Patch - TP DAILY [facility] Megestrol Acetate 40 mg 12/02/17 11:00 Megace - PO DAILY CON Melatonin 5 mg 12/01/17 16:45 Melatonin PO HS PRN sleeplessness Miscellaneous 1 each 12/01/17 22:00 12/01/17 22:18 Lidoderm Patch Removal MC 1 each DAILY@2200 CON Administration Multivit/Folic Acid/Iron 1 tab 12/02/17 10:00 12/02/17 10:24 Vitamins (Sjr) - PO Not Given DAILY CON Thiamine HCl 100 mg 12/02/17 10:00 12/02/17 10:10 Vitamin B1 - PO 100 mg DAILY CON Administration ASSESSMENT/PLAN 47 year-old female with a PMH significant for HTN, depression, ETOH abuse, chronic back pain, and menorrhagia. Admitted for pancytopenia and acute alcohol withdrawal. Pancytopenia --possibly secondary to alcohol-induced bone marrow suppression --transfused 2U PRBCs and 1U platelets on 12/01; Hgb 7.9-->11.0, plts 32k--> 50k --retic count, LDH, haptoglobin, fibrinogen --B12, folate, iron studies --Dr. Odom following Acute alcohol withdrawal --continuing librium taper started at [facility] --ammonia level <10 --continue folate, thiamine Hypertension --has h/o HTN, on no meds --was hypertensive on admission, given dose metoprolol with good effect --continue to monitor closely Hyperbilirubinemia Transaminitis --US liver: fatty liver --GI following Menorrhagia --seen and evaluated by Dr. Bro --pelvic and transvaginal US ordered --start Megace Depression --not on meds, denies h/o psych hospitalizations, confirmed by --psych consult requested --aware Megace can worsen depression, monitor closely Dispo: Discussed with NEELAM Wang. If psych makes diagnosis of depression, should explore if we can get patient into a dual diagnosis treatment facility, e.g. [facility]. Full Code. Visit type - Emergency Visit Emergency Visit: Yes ED Registration Date: 12/01/17 Care time: The patient presented to the Emergency Department on the above date and was hospitalized for further evaluation of their emergent condition. - New Patient This patient is new to me today: No - Critical Care Critical Care patient: No
[2017-12-02] MEDS: LIDOCAINE 5% TOPICAL PATCH TP SCH (12:52)
[2017-12-02] MEDS: MEGESTROL ACETATE 40 MG TABLET PO SCH ×2 (15:40→16:10)
--- NOTE | 2017-12-02 17:05 | PN ---
Mental Health Exam - Mental Status Exam Alert and Oriented to: Place, Person Cognitive Function: Impaired (NOT FINISH HIGH SCHOOL. ) Mood: Apathetic, Depressed, Apprehensive Affect: Blunted Patient Behavior: Crying, Dependent, Passive, Cooperative Voice Loudness: Mildly Soft/Quiet Thought Process: Circumstantial Thought Disorder: Not Present Hallucinations: None, Denies Suicidal Ideation: Denies Homicidal Ideation: Denies Insight/Judgement: Impaired Sleep: Poorly (NAPS DURING THE DAY. ) Appetite: Poor (LOSS OF APPETITE. )
--- NOTE | 2017-12-02 17:13 | PN ---
Progress Note, Physician Chief Complaint: "I DONT FEEL WELL, I CRY SO MUCH, I CANT GET UP IN AM". - Current Medication List Current Medications: Active Medications Chlordiazepoxide HCl (Librium -) 15 mg PO [id number] CON Stop: 12/03/17 17:01 Chlordiazepoxide HCl (Librium -) 25 mg PO Q4H PRN PRN Reason: WITHDRAWAL(CONT SUBST) Stop: 12/04/17 17:14 Hydroxyzine Pamoate (Vistaril -) 50 mg PO Q4H PRN PRN Reason: itcheness Lidocaine (Lidoderm Patch -) 1 patch TP DAILY [facility] Last Admin: 12/02/17 12:52 Dose: 1 patch Megestrol Acetate (Megace -) 40 mg PO DAILY [facility] Last Admin: 12/02/17 16:10 Dose: 40 mg Melatonin (Melatonin) 5 mg PO HS PRN PRN Reason: sleeplessness Miscellaneous (Lidoderm Patch Removal) 1 each MC DAILY@2200 [facility] Last Admin: 12/01/17 22:18 Dose: 1 each Multivit/Folic Acid/Iron ( Vitamins (Sjr) -) 1 tab PO DAILY [facility] Last Admin: 12/02/17 12:52 Dose: 1 tab Thiamine HCl (Vitamin B1 -) 100 mg PO DAILY [facility] Last Admin: 12/02/17 10:10 Dose: 100 mg - Objective Vital Signs: Vital Signs Temperature 99.0 F 12/02/17 14:22 Pulse Rate 73 12/02/17 14:22 Respiratory Rate 20 12/02/17 14:22 Blood Pressure 127/86 12/02/17 14:22 O2 Sat by Pulse Oximetry (%) 99 12/02/17 09:00 Psychiatric: Yes: Alert (BUT DISORIENTATED TO TIME.) Labs: CBC, BMP 12/02/17 10:20 12/02/17 10:20 INR, PTT INR 1.14 (0.82-1.09) 12/01/17 13:15 Fibrinogen 186.0 mg/dL (238-498) L 12/01/17 18:25 Problem List - Problems (1) Major depression Code(s): F32.9 - MAJOR DEPRESSIVE DISORDER, SINGLE EPISODE, UNSPECIFIED Qualifiers: Major depression recurrence: single episode Major depression episode severity: severe Psychotic features: without psychotic features Assessment/Plan cLIENT IS A 47 YO FEMALE WITH AA, HTN, BLOOD LOSS, ON LIBRIUM TAPER STARTED IN [place]. STARTING ON MEGASE 40 TODAY, FIRST DOSE GIVEN BY STEVE JUDD. sHE HAS POOR SLEEP PATTERN FOR SOME WEEKS, ON MELOTONIN NEEDED. CLIENT PRESENTS WITH SEVERLY DEPRESSED MOOD, CON CRUENT AFFECT. POOR APPETITE, LOOOSING INTREST IN ATTENDING [employer] WHICH WAS HER SUPPORT OUTSIDE OF HER HOME. AGREE THAT SEEK INPATIENT PSYCH DUAL DIAGNOISIS/ RESPITE CARE PLAN FOR DISCHARGE. START SSRI LEXAPRO 5MG IN THE AM. THANK YOU FOR THE CONSULT.
[2017-12-02] MEDS: LIDOCAINE PATCH REMOVAL MC SCH (21:37)
[2017-12-02] MEDS: chlordiazePOXIDE 5 MG CAPSULE PO SCH (22:52)
[2017-12-03] MEDS: chlordiazePOXIDE 5 MG CAPSULE PO SCH ×3 (05:26→18:32)
[2017-12-03 07:35] LABS: BASO % 0.4 % (0-2.0); EOS % 2.9 % (0-4.5); HEMATOCRIT 31.7 % (32.4-45.2); HEMOGLOBIN 10.4 GM/dL (10.7-15.3); LYMPH % 46.2 % (8-40); MCH 26.7 pg (25.7-33.7); MCHC 32.8 g/dl (32.0-36.0); MEAN CELL VOLUME 81.4 fl (80-96); MEAN PLT VOLUME 8.9 fl (7.5-11.1); MONO % 9.8 % (3.8-10.2); NEUT % 40.7 % (42.8-82.8); PLATELET COUNT 42 K/MM3 (134-434); RDW 20.2 % (11.6-15.6); WHITE BLOOD COUNT 2.4 K/mm3 (4.0-10.0)
[2017-12-03 08:07] LABS: MAGNESIUM 2.2 mg/dL (1.8-2.4)
[2017-12-03 08:07] LABS: SERUM IRON SATURATION 15 % (15-55); TOTAL IRON BINDING CAPACITY 326 ug/dL (250-450); UIBC 277 ug/dL (131-425)
[2017-12-03] MEDS: ESCITALOPRAM OXALATE 10 MG TABLET (FP) PO SCH (09:35)
[2017-12-03] MEDS: THIAMINE HCL 100 MG TABLET (FP) PO SCH (09:35)
[2017-12-03] MEDS: LIDOCAINE 5% TOPICAL PATCH TP SCH (09:35)
[2017-12-03] MEDS: MEGESTROL ACETATE 40 MG TABLET PO SCH (09:35)
[2017-12-03] MEDS: PRENATAL VITAMINS W/ FOLIC ACID TABLET (FP) PO SCH (09:35)
--- NOTE | 2017-12-03 12:38 | PN ---
Progress Note (short form) - Note Progress Note: Care Director follow up. pt appears in better spirits today. bleeding is still continuing, bright red color. less scar yesterday as per patient . Pevic /TVsono report noted. ut 9.1 cmx6.1 cm , small post fibroid 1.6cm . ltovary normal. Rt ovary not visualized. em 10mm Selected Entries 12/03/17 12/03/17 07:57 09:00 Temperature 97.9 F Pulse Rate 63 73 Blood Pressure 127/82 144/97 Blood Pressure 97 112 Mean Laboratory Tests 12/01/17 12/01/17 12/01/17 18:25 18:25 18:25 WBC Hgb Hct Plt Count Lymphocytes % Monocytes % Iron 49 TIBC 326 Iron Saturation 15 Ferritin 64.500 AST ALT Vitamin B12 452 Serum Folate > 20 H HIV 1&2 Antibody Screen HIV P24 Antigen 12/02/17 12/02/17 12/03/17 06:30 10:20 06:30 WBC 2.4 L Hgb 10.4 L Hct 31.7 L Plt Count 42 L Lymphocytes % 46.2 H Monocytes % 9.8 Iron TIBC Iron Saturation Ferritin AST 75 H ALT 31 Vitamin B12 Serum Folate HIV 1&2 Antibody Screen Negative HIV P24 Antigen Negative s/p 2 pack cell & one unit of plt transfusion slightly improved count Plan ct po megace until bleeding stops since em is 10mm thick Problem List - Problems (1) Menometrorrhagia Code(s): N92.1 - EXCESSIVE AND FREQUENT MENSTRUATION WITH IRREGULAR CYCLE (2) Pancytopenia Code(s): D61.818 - OTHER PANCYTOPENIA (3) Neutropenia Code(s): D70.9 - NEUTROPENIA, UNSPECIFIED (4) Thrombocytopenia Code(s): D69.6 - THROMBOCYTOPENIA, UNSPECIFIED (5) Alcohol withdrawal Code(s): F10.239 - ALCOHOL DEPENDENCE WITH WITHDRAWAL, UNSPECIFIED (6) Depression Code(s): F32.9 - MAJOR DEPRESSIVE DISORDER, SINGLE EPISODE, UNSPECIFIED
--- NOTE | 2017-12-03 14:14 | PN ---
Progress Note (short form) - Note Progress Note: Last Vital Signs Temp Pulse Resp BP Pulse Ox 99.1 F 73 18 132/99 99 12/03/17 13:59 12/03/17 13:59 12/03/17 13:59 12/03/17 13:59 12/02/17 20:14 CBC, BMP 12/03/17 06:30 12/02/17 10:20 Current Medications Generic Name Dose Route Start Last Admin Trade Name Freq PRN Reason Stop Dose Admin Chlordiazepoxide HCl 15 mg 12/02/17 23:00 12/03/17 11:48 Librium - PO 12/03/17 17:01 15 mg [id number] CON Administration Chlordiazepoxide HCl 25 mg 12/01/17 17:15 Librium - PO 12/04/17 17:14 Q4H PRN WITHDRAWAL(CONT SUBST) Escitalopram Oxalate 5 mg 12/03/17 10:00 12/03/17 09:35 Lexapro - PO 5 mg DAILY CON Administration Iron Sucrose 200 mg/ Sodium 250 mls @ 250 mls/hr 12/03/17 14:30 Chloride IVPB 12/03/17 15:29 ONCE ONE Lidocaine 1 patch 12/02/17 10:00 12/03/17 09:35 Lidoderm Patch - TP 1 patch DAILY CON Administration Megestrol Acetate 40 mg 12/02/17 11:00 12/03/17 09:35 Megace - PO 40 mg DAILY CON Administration Melatonin 5 mg 12/01/17 16:45 Melatonin PO HS PRN sleeplessness Miscellaneous 1 each 12/01/17 22:00 12/02/17 21:37 Lidoderm Patch Removal MC 1 each DAILY@2200 CON Administration Multivit/Folic Acid/Iron 1 tab 12/02/17 10:00 12/03/17 09:35 Vitamins (Sjr) - PO 1 tab DAILY CON Administration Thiamine HCl 100 mg 12/02/17 10:00 12/03/17 09:35 Vitamin B1 - PO 100 mg DAILY CON Administration supportive transfusions ?spleen size for venofer Problem List - Problems (1) Thrombocytopenia Code(s): D69.6 - THROMBOCYTOPENIA, UNSPECIFIED (2) Major depression Code(s): F32.9 - MAJOR DEPRESSIVE DISORDER, SINGLE EPISODE, UNSPECIFIED Qualifiers: Major depression recurrence: single episode Major depression episode severity: severe Psychotic features: without psychotic features (3) Depression Code(s): F32.9 - MAJOR DEPRESSIVE DISORDER, SINGLE EPISODE, UNSPECIFIED (4) Pancytopenia Code(s): D61.818 - OTHER PANCYTOPENIA (5) Alcohol dependence with withdrawal Code(s): F10.239 - ALCOHOL DEPENDENCE WITH WITHDRAWAL, UNSPECIFIED Qualifiers: Complication of substance-induced condition: uncomplicated Qualified Code(s ): F10.230 - Alcohol dependence with withdrawal, uncomplicated (6) Tremor due to drug withdrawal Code(s): G25.1 - DRUG-INDUCED TREMOR (7) Abnormal menses Code(s): N92.6 - IRREGULAR MENSTRUATION, UNSPECIFIED
[2017-12-03] MEDS ORDERED: IRON SUCROSE INJECTION 200 MG in SODIUM CHLORIDE 240 ML IVPB ONE (14:30)
--- NOTE | 2017-12-03 15:55 | PN ---
Physical Exam: SUBJECTIVE: Patient seen and examined. She is feeling well physically, no abdominal pain, sob, fever. OBJECTIVE: Vital Signs Period Temp Pulse Resp BP Sys/Infante Pulse Ox Last 24 Hr 97.9 F-99.1 F 63-73 18-20 124-144/82-99 99 PE Neuro: sleepy, arousable, cn 2-12intact Pulm: CTAB CV: s1 s2 rrr Abd: s nt nd + bs Ext: warm, no le edema Laboratory Results - last 24 hr 12/01/17 12/03/17 12/03/17 18:25 06:30 06:30 WBC 2.4 L RBC 3.90 Hgb 10.4 L Hct 31.7 L MCV 81.4 MCH 26.7 MCHC 32.8 RDW 20.2 H Plt Count 42 L MPV 8.9 Neutrophils % 40.7 L Lymphocytes % 46.2 H Monocytes % 9.8 Eosinophils % 2.9 Basophils % 0.4 Haptoglobin 32 L Magnesium 2.2 Iron 49 TIBC 326 Iron Saturation 15 Ferritin 57.071 Active Medications Generic Name Dose Route Start Last Admin Trade Name Freq PRN Reason Stop Dose Admin Chlordiazepoxide HCl 15 mg 12/02/17 23:00 12/03/17 11:48 Librium - PO 12/03/17 17:01 15 mg [id number] CON Administration Chlordiazepoxide HCl 25 mg 12/01/17 17:15 Librium - PO 12/04/17 17:14 Q4H PRN WITHDRAWAL(CONT SUBST) Escitalopram Oxalate 5 mg 12/03/17 10:00 12/03/17 09:35 Lexapro - PO 5 mg DAILY CON Administration Lidocaine 1 patch 12/02/17 10:00 12/03/17 09:35 Lidoderm Patch - TP 1 patch DAILY CON Administration Megestrol Acetate 40 mg 12/02/17 11:00 12/03/17 09:35 Megace - PO 40 mg DAILY CON Administration Melatonin 5 mg 12/01/17 16:45 Melatonin PO HS PRN sleeplessness Miscellaneous 1 each 12/01/17 22:00 12/02/17 21:37 Lidoderm Patch Removal MC 1 each DAILY@2200 CON Administration Multivit/Folic Acid/Iron 1 tab 12/02/17 10:00 12/03/17 09:35 Vitamins (Sjr) - PO 1 tab DAILY CON Administration Thiamine HCl 100 mg 12/02/17 10:00 12/03/17 09:35 Vitamin B1 - PO 100 mg DAILY CON Administration Assessment: 47 year old female with a PMH significant for HTN, depression, ETOH abuse, chronic back pain, and menorrhagia. Admitted for pancytopenia and acute alcohol withdrawal. Plan: 1. Pancytopenia - Possibly secondary to alcohol-induced bone marrow suppression - Transfused 2U PRBCs and 1U platelets on 12/01 - Given venofer today - Dr. Odom following 2. Acute alcohol withdrawal - Resolving - Librium taper started at [facility] - Continue folate, thiamine 3. Hypertension - Stable off meds 4. Hyperbilirubinemia, Transaminitis - US liver: fatty liver - GI following 5. Menorrhagia - Pevic/transvaginal US: small post fibroid 1.6cm , left ovary normal. Right ovary not visualized. em 10mm - Dr. Bro seeing - Continue megace until bleeding stops 6. Depression - Started lexapro 5mg daily - Psych suggests psych facility for depression with dual diagnosis treatment facility - Aware Megace can worsen depression, monitor closely, stop once bleeding stops 7. DVT - Hold chemical ppx for bleeding and thrombocytopenia Visit type - Emergency Visit Emergency Visit: Yes ED Registration Date: 12/01/17 Care time: The patient presented to the Emergency Department on the above date and was hospitalized for further evaluation of their emergent condition. - New Patient This patient is new to me today: Yes Date on this admission: 12/03/17 - Critical Care Critical Care patient: No
[2017-12-03] MEDS: LIDOCAINE PATCH REMOVAL MC SCH (23:00)
[2017-12-04 00:07] LABS: HEP.C VIRUS AB 0.2 s/co ratio (0.0-0.9)
[2017-12-04 05:59] VITALS: TEMP 98.3
[2017-12-04 08:51] VITALS: BP 139/83; PULSE 53
[2017-12-04 08:59] LABS: BASO % 0.8 % (0-2.0); EOS % 2.2 % (0-4.5); HEMATOCRIT 31.9 % (32.4-45.2); HEMOGLOBIN 10.3 GM/dL (10.7-15.3); LYMPH % 35.3 % (8-40); MCH 26.7 pg (25.7-33.7); MCHC 32.3 g/dl (32.0-36.0); MEAN CELL VOLUME 82.5 fl (80-96); MEAN PLT VOLUME 8.7 fl (7.5-11.1); MONO % 11.8 % (3.8-10.2); NEUT % 49.9 % (42.8-82.8); PLATELET COUNT 46 K/MM3 (134-434); RBC 3.87 M/mm3 (3.60-5.2); RDW 20.5 % (11.6-15.6); WHITE BLOOD COUNT 3.5 K/mm3 (4.0-10.0)
[2017-12-04] MEDS ORDERED: PT OWN MED DRAWER 7, Y5N ONE (10:12)
[2017-12-04] MEDS: THIAMINE HCL 100 MG TABLET (FP) PO SCH (10:14)
[2017-12-04] MEDS: ESCITALOPRAM OXALATE 10 MG TABLET (FP) PO SCH (10:14)
[2017-12-04] MEDS: MEGESTROL ACETATE 40 MG TABLET PO SCH (10:16)
[2017-12-04] MEDS: PRENATAL VITAMINS W/ FOLIC ACID TABLET (FP) PO SCH (10:16)
[2017-12-04] MEDS: LIDOCAINE 5% TOPICAL PATCH TP SCH (10:21)
--- NOTE | 2017-12-04 12:27 | CONSULT ---
Consult Detox [facility] Reason for Current Admission/Consult: substances ue Referred by:: todd cole - Alcohol/Substance Use Hx Alcohol Use: Yes (drinks 1 pint /day/ since 2010 , ) - Past Medical History Cardio/Vascular: Yes: HTN (no meds ) Gastrointestinal: Yes: Other (denies h/o vomoting blood or rectal bleeding ) Renal/: Yes: Other (denies urinary symptoms ) ...LMP: 11/26/17 ...: No Infectious Disease: No: STD's Psych: Yes: Depression Musculoskeletal: Yes: Chronic low back pain - Past Surgical History Past Surgical History: Yes: None Assessment Plan - Diagnosis (1) Major depression Status: Acute Qualifiers: Major depression recurrence: single episode Major depression episode severity: severe Psychotic features: without psychotic features (2) Menometrorrhagia Status: Acute (3) Neutropenia Status: Acute (4) Pancytopenia Status: Acute (5) Thrombocytopenia Status: Acute (6) Alcohol dependence with withdrawal Status: Acute Qualifiers: Complication of substance-induced condition: uncomplicated Qualified Code(s ): F10.230 - Alcohol dependence with withdrawal, uncomplicated - Plan Plan: 47 yo f went from detox from alcohol with libirum becasue f heavy vaginal bleeding adn pancytopenia to [facility] where she was admitted, now medically stable , competed detox reuquesting rehb bed. Call for rehab bed an insurance clearance. may be transferred back to [facility] to compete treatment. - Medication Detox Regimen/Protocol: Librium
--- NOTE | 2017-12-04 13:19 | PN ---
Progress Note, Physician History of Present Illness: No events. No stigmata of ongoing, significant gastrointestinal bleeding. Appears to be comfortable. Not in distress, not in pain. - Current Medication List Current Medications: Active Medications Chlordiazepoxide HCl (Librium -) 25 mg PO Q4H PRN PRN Reason: WITHDRAWAL(CONT SUBST) Stop: 12/04/17 17:14 Escitalopram Oxalate (Lexapro -) 5 mg PO DAILY [facility] Last Admin: 12/04/17 10:14 Dose: 5 mg Lidocaine (Lidoderm Patch -) 1 patch TP DAILY [facility] Last Admin: 12/04/17 10:21 Dose: Not Given Megestrol Acetate (Megace -) 40 mg PO DAILY [facility] Last Admin: 12/04/17 10:16 Dose: 40 mg Melatonin (Melatonin) 5 mg PO HS PRN PRN Reason: sleeplessness Last Admin: 12/03/17 21:48 Dose: 5 mg Miscellaneous (Lidoderm Patch Removal) 1 each MC DAILY@2200 [facility] Last Admin: 12/03/17 23:00 Dose: 1 each Multivit/Folic Acid/Iron ( Vitamins (Sjr) -) 1 tab PO DAILY [facility] Last Admin: 12/04/17 10:16 Dose: 1 tab Thiamine HCl (Vitamin B1 -) 100 mg PO DAILY [facility] Last Admin: 12/04/17 10:14 Dose: 100 mg Thiamine HCl (Vitamin B1 -) 100 mg PO [facility] - Objective Vital Signs: Vital Signs Temperature 98.3 F 12/04/17 08:30 Pulse Rate 53 L 12/04/17 08:30 Respiratory Rate 20 12/04/17 08:30 Blood Pressure 139/83 12/04/17 08:30 O2 Sat by Pulse Oximetry (%) 98 12/03/17 21:00 Constitutional: Yes: Calm Gastrointestinal: Yes: Soft. No: Melena, Tenderness, Vomiting Labs: CBC, BMP 12/04/17 08:10 12/02/17 10:20 INR, PTT INR 1.14 (0.82-1.09) 12/01/17 13:15 Fibrinogen 186.0 mg/dL (238-498) L 12/01/17 18:25 Problem List - Problems (1) Vaginal bleeding Code(s): N93.9 - ABNORMAL UTERINE AND VAGINAL BLEEDING, UNSPECIFIED (2) Cholestasis Code(s): K83.1 - OBSTRUCTION OF BILE DUCT (3) Alcohol dependence with withdrawal Code(s): F10.239 - ALCOHOL DEPENDENCE WITH WITHDRAWAL, UNSPECIFIED Qualifiers: Complication of substance-induced condition: uncomplicated Qualified Code(s ): F10.230 - Alcohol dependence with withdrawal, uncomplicated (4) Thrombocytopenia Code(s): D69.6 - THROMBOCYTOPENIA, UNSPECIFIED (5) Neutropenia Code(s): D70.9 - NEUTROPENIA, UNSPECIFIED Assessment/Plan Follow-up blood work results. Continue current care.
[2017-12-04 14:15] LABS: IGA IMMUNOGLOBULIN 615 mg/dL (87-352)
--- NOTE | 2017-12-04 14:19 | DS ---
Physical Exam: SUBJECTIVE: Patient seen and examined. She denies further bleeding from last night through this morning. OBJECTIVE: Vital Signs Period Temp Pulse Resp BP Sys/Infante Pulse Ox Last 24 Hr 98.3 F-99.2 F 53-61 18-21 135-148/83-100 98 PE Neuro: alert, awake, cn 2-12intact Pulm: CTAB CV: s1 s2 rrr Abd: s nt nd + bs Ext: warm, no le edema Laboratory Results - last 24 hr 12/02/17 12/03/17 12/04/17 06:30 06:30 08:10 WBC 3.5 L D RBC 3.87 Hgb 10.3 L Hct 31.9 L MCV 82.5 MCH 26.7 MCHC 32.3 RDW 20.5 H Plt Count 46 L MPV 8.7 Neutrophils % 49.9 D Lymphocytes % 35.3 D Monocytes % 11.8 H Eosinophils % 2.2 Basophils % 0.8 Iron 26 L IgA 615 H Hepatitis A IgM Ab Negative Hep Bs Antigen Negative Hep B Core IgM Ab Negative Hep C Ab Diagnostic 0.1 Hepatitis C Antibody 0.2 HOSPITAL COURSE: Date of Admission:12/01/17 Date of Discharge: 12/04/17 Minutes to complete discharge: 37 Discharge Summary Reason For Visit: ALCOHOL DEPENDENCE W WITHDRAWAL,PANCYTOPENIA Current Active Problems Alcohol withdrawal (Acute) Cholestasis (Acute) Depression (Acute) Major depression (Acute) Menometrorrhagia (Acute) Neutropenia (Acute) Pancytopenia (Acute) Thrombocytopenia (Acute) Vaginal bleeding (Acute) Hospital Course: Initial Hospital Course: Briefly, this 47 year old female with a PMH significant for HTN, depression, ETOH abuse, chronic back pain, and menorrhagia. She was in the street two days ago and passersby observed her bleeding (vaginally) through her clothes and called an ambulance. She was seen in [place] ED and was told her "counts are low" although she was not transfused. From [place] she was sent to [facility] for alcohol detox. She was evaluated at [facility] and sent to the ED for heavy menses with clots x 6 days and pancytopenia. She went through 4 pads day of admission. Patient is homeless, lives on the streets. She was recently treated for dysuria in a hospital with IV antibiotics but she cannot be more specific. She goes to many different EDs for her health care. She takes no medications on a regular basis. Subsequent Hospital Course/Progress Note/DC summary: Assessment: 47 year old female with a PMH significant for HTN, depression, ETOH abuse, chronic back pain, and menorrhagia. Admitted for pancytopenia and acute alcohol withdrawal. Plan: 1. Pancytopenia - Possibly secondary to alcohol-induced bone marrow suppression - Transfused 2U PRBCs and 1U platelets on 12/01 - Given venofer x1 2. Acute alcohol withdrawal - Resolving - Librium taper completed, for [facility] on discharge - Continue folate, thiamine 3. Hypertension - Stable off meds 4. Hyperbilirubinemia, Transaminitis - US liver: fatty liver - GI follow up as outpt 5. Menorrhagia - Pevic/transvaginal US: small post fibroid 1.6cm , left ovary normal. Right ovary not visualized. em 10mm - Megace stopped on discharge, bleeding stopped 6. Depression - Started lexapro 5mg daily Dispo: - Transfer to [facility] for rehab Condition: Stable - Instructions Diet, Activity, Other Instructions: Transfer to [facility] for Rehab Continue lexapro 5mg daily Follow up with GI and Hematology for follow up, referrals enclosed Referrals: Tor Barbosa MD [Staff Physician] - Kiana Pierson MD [Staff Physician] - Disposition: TRANSFER ACUTE CARE/OTHER HOSP - Home Medications Comprehensive Discharge Medication List: Ambulatory Orders Acetaminophen [Tylenol] 650 mg PO Q4H PRN 12/01/17 Chlordiazepoxide [Librium -] 0 mg PO ASDIR 12/01/17 Lidocaine 5% Patch [Lidoderm -] 1 patch TP DAILY 12/01/17 Melatonin 5 mg PO HS PRN 12/01/17 Vit/Iron Fum/Folic AC [ Tablet] 1 each PO DAILY 12/01/17 Thiamine HCl [B-1] 100 mg PO DAILY 12/01/17 Escitalopram Oxalate [Lexapro -] 5 mg PO DAILY #0 tablet 12/04/17 This patient is new to me today: No Emergency Visit: Yes ED Registration Date: 12/01/17 Care time: The patient presented to the Emergency Department on the above date and was hospitalized for further evaluation of their emergent condition. Critical Care patient: No - Discharge Referral Referred to [facility] Med P.C.: No
[2017-12-04 16:31] LABS: TRANSGLUTAMINASE IGA < 2 U/mL (0-3)
[2017-12-04] MEDS ORDERED: THIAMINE HCL 100 MG TABLET (FP) PO SCH (22:00)
[2017-12-05 00:10] LABS: GLIADIN ANTIBODY IGA 8 units (0-19); GLIADIN ANTIBODY IGG 2 units (0-19)
[2017-12-07 14:16] LABS: HBSAG SCREEN Negative (Negative); HEP A AB, IGM Negative (Negative); HEP B CORE AB, TOT Negative (Negative)
== END 2017-12-04 15:36 | disposition short-term general hospital (02) | DRG 660 ==
LOC: JER 12:29 → JERBED 16:03 → J6S 21:53
PROVIDERS: ADMIT Internal Medicine; ATTEND Nurse Practitioner Acute Care
PROC: 30233H1 Transfusion of Nonautologous Whole Blood into Peripheral Vein, Percutaneous Approach (ICD-10-PCS; principal; 2017-12-01)
PROC: HZ2ZZZZ Detoxification Services for Substance Abuse Treatment (ICD-10-PCS; 2017-12-04)
DX: D61.818 Other pancytopenia (principal); F10.230 Alcohol dependence with withdrawal, uncomplicated; N92.1 Excessive and frequent menstruation with irregular cycle; I10 Essential (primary) hypertension; F32.9 Major depressive disorder, single episode, unspecified; D69.6 Thrombocytopenia, unspecified; K83.1 Obstruction of bile duct; K76.0 Fatty (change of) liver, not elsewhere classified
CPT/HCPCS: 36415; 36430; 71045-TC-FY; 76705-TC; 76830-TC; 76856-TC; 80053; 80074; 81003; 81015; 82140; 82607; 82728; 82746; 82784; 83010; 83516; 83540; 83550; 83615; 83735; 83880; 84155; 84165; 84703; 85025; 85027; 85044; 85384; 85610; 85730; 86038; 86334; 86704; 86706; 86708; 86850; 86900; 86901; 86922; 87086; 87340; 87389; 93005; 93010; 99285-25; J1756; J8999; P9034; P9038; P9058

== ENCOUNTER 2017-12-04 16:39 | Inpatient (IN) | payer OTHER ==
--- NOTE | 2017-12-04 16:19 | HP ---
[facility] Rehab Assess/Revision - Admission History Admitted to Rehab from: [facility] Date of Admission to Rehab: 12/04/2017 - Vital signs Vital Signs: vital signs reviewed, stable - Findings Detox History & Physical reviewed: Yes Concur with findings: Yes (was trasnferred to [facility] mid detox becasue of pancytopenia and menorrhagia) Inpatient Rehab Admission - Initial Determination Are CD services needed?: Yes Free of communicable disease: Yes Not in need of hospitalization: Yes - Rehab Admission Criteria Comorbidities: Yes Patient is meeting Inpatient Rehab admission criteria:: Yes (transfused to units , medically stable)
[~2017-12-04 16:39] MED LIST: ACETAMINOPHEN 325 MG TABLET (FP) PO PRN; IBUPROFEN 400 MG TABLET (FP) PO PRN; MAG HYDROX/AL HYDROX/SIMETH 30 ML UNIT-DOSE CUP PO PRN; MAGNESIUM CITRATE 300 ML BOTTLE PO PRN; MAGNESIUM HYDROX 2400MG/30ML ORAL SUSPENSION 30 ML CUP PO PRN; MENTHOL/PHENOL 1 EACH UD MM PRN; P-EPHED 60MG/TRIPROLIDI 2.5MG TABLET PO PRN; guaiFENesin/D-METHORPHAN HB 10 ML UNIT-DOSE CUPS PO PRN; hydrOXYzine PAMOATE 50 MG CAPSULE (FP) PO PRN
[2017-12-04 17:03] VITALS: BMI 31.6
[2017-12-04] MEDS: FERROUS SO4 325 MG TABLET (FP) PO SCH (19:45)
--- NOTE | 2017-12-04 20:07 | PN ---
S Progress Note Note: As per nursing report patient was on Lexapro 5mg poqd prior to admission Lexapro 5mg poqd order done.
[2017-12-04] MEDS: THIAMINE HCL 100 MG TABLET (FP) PO SCH (21:22)
[2017-12-04] MEDS: DOCUSATE SODIUM 100 MG CAPSULE (FP) PO SCH (21:22)
[2017-12-04] MEDS: MELATONIN 5 MG TABLETS PO PRN (21:23)
[2017-12-05] MEDS: FERROUS SO4 325 MG TABLET (FP) PO SCH ×3 (07:00→18:20)
[2017-12-05] MEDS: PRENATAL VITAMINS W/ FOLIC ACID TABLET (FP) PO SCH (09:41)
[2017-12-05] MEDS: ESCITALOPRAM OXALATE 10 MG TABLET (FP) PO SCH (09:41)
[2017-12-05] MEDS ORDERED: PT OWN MED DRAWER 7, Y5N ONE (10:17)
[2017-12-05] MEDS: DOCUSATE SODIUM 100 MG CAPSULE (FP) PO SCH (21:33)
[2017-12-05] MEDS: MELATONIN 5 MG TABLETS PO PRN (21:33)
[2017-12-05] MEDS: THIAMINE HCL 100 MG TABLET (FP) PO SCH (21:33)
[2017-12-06] MEDS: FERROUS SO4 325 MG TABLET (FP) PO SCH ×3 (07:39→18:22)
[2017-12-06] MEDS: ESCITALOPRAM OXALATE 10 MG TABLET (FP) PO SCH (09:52)
[2017-12-06] MEDS: PRENATAL VITAMINS W/ FOLIC ACID TABLET (FP) PO SCH (09:52)
[2017-12-06] MEDS ORDERED: PT OWN MED DRAWER 7, Y5N ONE (10:13)
[2017-12-06] MEDS: THIAMINE HCL 100 MG TABLET (FP) PO SCH (21:09)
[2017-12-06] MEDS: DOCUSATE SODIUM 100 MG CAPSULE (FP) PO SCH (21:09)
[2017-12-06] MEDS: MELATONIN 5 MG TABLETS PO PRN (21:09)
[2017-12-07] MEDS: FERROUS SO4 325 MG TABLET (FP) PO SCH ×3 (07:23→17:37)
[2017-12-07] MEDS: PRENATAL VITAMINS W/ FOLIC ACID TABLET (FP) PO SCH (10:10)
[2017-12-07] MEDS: ESCITALOPRAM OXALATE 10 MG TABLET (FP) PO SCH (10:11)
--- NOTE | 2017-12-07 10:18 | HP ---
Psychiatrist Admission - Data Date of interview: 12/07/17 Admission source: [facility] Identifying data: This is the first admission to [address] [place] [address] for this 47 years old [place] female mother of 6( youngest 7 yo son resides with his father),unemployed,undomiciled,no financial support. Medical History: H/O Vaginal bleeding. Psychiatric History: Patient reports periods nof depressed mood.She was placed on lexapro 5 mg po daily and restarted again Lexapro 5 mg po daily this weekend.She denies history of psychiatric admissions,no suicidal attempts reported. Physical/Sexual Abuse/Trauma History: denies Vital Signs: Vital Signs - 24 hr 12/07/17 12/07/17 12/07/17 00:30 03:30 07:02 Temperature 98.0 F Pulse Rate 71 Respiratory 18 18 18 Rate Blood Pressure 125/86 12/07/17 10:00 Temperature Pulse Rate 66 Respiratory Rate Blood Pressure 127/85 Allergies/Adverse Reactions: Allergies Allergy/AdvReac Type Severity Reaction Status Date / Time No Known Allergies Allergy Verified 12/04/17 17:01 Date of last physical exam: 12/04/17 Concur with the findings of this exam: Yes - Substance Abuse/Tx History Hx Alcohol Use: Yes (reports drinking heavily since 35 yo,1 pint of vodka daily) Hx Substance Use: No Substance Use Type: Alcohol Hx Substance Use Treatment: Yes (completed 28 days inpatient about 3 years , longest abstinence about 4 [facility] ) Mental Status Exam - Mental Status Exam Alert and Oriented to: Time, Place, Person Cognitive Function: Grossly Intact Patient Appearance: Unkempt Mood: Sad Affect: Mood Congruent Patient Behavior: Cooperative Speech Pattern: Clear Voice Loudness: Normal Thought Process: Goal Oriented Thought Disorder: Not Present Hallucinations: Denies Suicidal Ideation: Denies Homicidal Ideation: Denies Insight/Judgement: Fair Sleep: Difficulty falling asleep Appetite: Good Muscle strength/Tone: Normal Gait/Station: Normal Psychiatric Findings - Problem List ([place] 1, 2,3) (1) Alcohol dependence Current Visit: Yes Status: Chronic (2) Back pain Current Visit: Yes Status: Chronic Qualifiers: Back pain location: low back pain Chronicity: acute Back pain laterality : midline Sciatica presence: with sciatica Sciatica laterality: bilateral sciatica Qualified Code(s): M54.42 - Lumbago with sciatica, left side; M54.41 - Lumbago with sciatica, right side; M54.41 - Lumbago with sciatica, right side (3) Menometrorrhagia Current Visit: Yes Status: Resolved (4) Anemia Current Visit: Yes Status: Chronic (5) Substance induced mood disorder Current Visit: Yes Status: Chronic - Initial Treatment Plan Initial Treatment Plan: Lexapro 5 mg po daily. Will monitor progress.
[2017-12-07] MEDS: THIAMINE HCL 100 MG TABLET (FP) PO SCH (21:10)
[2017-12-07] MEDS: DOCUSATE SODIUM 100 MG CAPSULE (FP) PO SCH (21:10)
[2017-12-07] MEDS: MELATONIN 5 MG TABLETS PO PRN (21:11)
[2017-12-08] MEDS: FERROUS SO4 325 MG TABLET (FP) PO SCH ×3 (07:01→18:00)
[2017-12-08] MEDS: ESCITALOPRAM OXALATE 10 MG TABLET (FP) PO SCH (09:45)
[2017-12-08] MEDS: PRENATAL VITAMINS W/ FOLIC ACID TABLET (FP) PO SCH (09:45)
[2017-12-08] MEDS ORDERED: PT OWN MED DRAWER 7, Y5N ONE ×2 (10:26→14:05)
--- NOTE | 2017-12-08 14:31 | PN ---
[facility] Progress Note Note: patient c/o of lesion on the right clavicle. Vital Signs Temperature 98.0 F 12/08/17 06:59 Pulse Rate 79 12/08/17 09:10 Respiratory Rate 18 12/08/17 06:59 Blood Pressure 115/79 12/08/17 09:10 O2 Sat by Pulse Oximetry (%) Patient AOx3 self directing Normal HR and Rythmn No adventitious breath sounds + blisters on the right clavicle, no discharge - blister / skin lesion Plan: bacitracin top BID continue to monitor
[2017-12-08] MEDS: BACITRACIN 0.9 GM PACKET TP SCH (21:16)
[2017-12-08] MEDS: DOCUSATE SODIUM 100 MG CAPSULE (FP) PO SCH (21:16)
[2017-12-08] MEDS: THIAMINE HCL 100 MG TABLET (FP) PO SCH (21:16)
[2017-12-09] MEDS: LOPERAMIDE HCL 2 MG CAPSULE PO PRN ×2 (06:57→21:18)
[2017-12-09] MEDS: FERROUS SO4 325 MG TABLET (FP) PO SCH ×3 (07:00→18:23)
[2017-12-09] MEDS: ESCITALOPRAM OXALATE 10 MG TABLET (FP) PO SCH (10:10)
[2017-12-09] MEDS: PRENATAL VITAMINS W/ FOLIC ACID TABLET (FP) PO SCH (10:10)
[2017-12-09] MEDS: BACITRACIN 0.9 GM PACKET TP SCH ×2 (10:10→21:16)
[2017-12-09] MEDS: DOCUSATE SODIUM 100 MG CAPSULE (FP) PO SCH (21:16)
[2017-12-09] MEDS: THIAMINE HCL 100 MG TABLET (FP) PO SCH (21:16)
[2017-12-09] MEDS: MELATONIN 5 MG TABLETS PO PRN (21:18)
[2017-12-10] MEDS: LOPERAMIDE HCL 2 MG CAPSULE PO PRN (06:36)
[2017-12-10] MEDS: FERROUS SO4 325 MG TABLET (FP) PO SCH ×3 (08:17→18:00)
[2017-12-10] MEDS: PRENATAL VITAMINS W/ FOLIC ACID TABLET (FP) PO SCH (10:00)
[2017-12-10] MEDS: ESCITALOPRAM OXALATE 10 MG TABLET (FP) PO SCH (10:00)
[2017-12-10] MEDS: BACITRACIN 0.9 GM PACKET TP SCH ×2 (10:00→21:10)
--- NOTE | 2017-12-10 14:49 | PN ---
[facility] Progress Note Note: Patient c/o of diarrhea with no relief with immodium . Vital Signs Temperature 98.4 F 12/10/17 06:48 Pulse Rate 70 12/10/17 10:00 Respiratory Rate 18 12/10/17 06:48 Blood Pressure 129/90 12/10/17 10:00 O2 Sat by Pulse Oximetry (%) Patient AOx3 in no apparent distress ambulating in the unit, no tenderness - diarrhea Plan: one time dose lamotil increase fluids d/c colace continue to monitor
[2017-12-10] MEDS ORDERED: DIPHENOXYLATE 2.5/ATROPINE.025 1 COMBO TABLET PO ONE (15:15)
[2017-12-10] MEDS: MELATONIN 5 MG TABLETS PO PRN (21:10)
[2017-12-10] MEDS: THIAMINE HCL 100 MG TABLET (FP) PO SCH (21:10)
[2017-12-11] MEDS: FERROUS SO4 325 MG TABLET (FP) PO SCH ×3 (07:02→18:06)
[2017-12-11] MEDS: PRENATAL VITAMINS W/ FOLIC ACID TABLET (FP) PO SCH (10:00)
[2017-12-11] MEDS: BACITRACIN 0.9 GM PACKET TP SCH ×2 (10:00→22:41)
[2017-12-11] MEDS: ESCITALOPRAM OXALATE 10 MG TABLET (FP) PO SCH (10:00)
[2017-12-11] MEDS: THIAMINE HCL 100 MG TABLET (FP) PO SCH (22:41)
[2017-12-12] MEDS: LOPERAMIDE HCL 2 MG CAPSULE PO PRN (06:48)
[2017-12-12] MEDS: FERROUS SO4 325 MG TABLET (FP) PO SCH ×3 (07:02→18:02)
[2017-12-12] MEDS: PRENATAL VITAMINS W/ FOLIC ACID TABLET (FP) PO SCH (10:00)
[2017-12-12] MEDS: ESCITALOPRAM OXALATE 10 MG TABLET (FP) PO SCH (10:00)
[2017-12-12] MEDS: BACITRACIN 0.9 GM PACKET TP SCH ×2 (10:01→21:09)
[2017-12-12] MEDS: THIAMINE HCL 100 MG TABLET (FP) PO SCH (21:10)
[2017-12-12] MEDS: MELATONIN 5 MG TABLETS PO PRN (21:11)
[2017-12-13] MEDS: FERROUS SO4 325 MG TABLET (FP) PO SCH ×3 (07:03→17:54)
[2017-12-13] MEDS ORDERED: PT OWN MED DRAWER 7, Y5N ONE (09:04)
[2017-12-13] MEDS: ESCITALOPRAM OXALATE 10 MG TABLET (FP) PO SCH (09:51)
[2017-12-13] MEDS: PRENATAL VITAMINS W/ FOLIC ACID TABLET (FP) PO SCH (09:51)
[2017-12-13] MEDS: BACITRACIN 0.9 GM PACKET TP SCH ×2 (09:51→21:12)
[2017-12-13] MEDS: MELATONIN 5 MG TABLETS PO PRN (21:12)
[2017-12-13] MEDS: THIAMINE HCL 100 MG TABLET (FP) PO SCH (21:12)
[2017-12-14] MEDS: COLLOIDAL OATMEAL 1 BAR EACH TP PRN (06:37)
[2017-12-14] MEDS: FERROUS SO4 325 MG TABLET (FP) PO SCH ×3 (07:32→18:00)
[2017-12-14] MEDS: PRENATAL VITAMINS W/ FOLIC ACID TABLET (FP) PO SCH (09:55)
[2017-12-14] MEDS: ESCITALOPRAM OXALATE 10 MG TABLET (FP) PO SCH (09:55)
[2017-12-14] MEDS: BACITRACIN 0.9 GM PACKET TP SCH ×2 (09:55→21:17)
[2017-12-14] MEDS: THIAMINE HCL 100 MG TABLET (FP) PO SCH (21:17)
[2017-12-14] MEDS: MELATONIN 5 MG TABLETS PO PRN (21:17)
[2017-12-15] MEDS: FERROUS SO4 325 MG TABLET (FP) PO SCH ×3 (07:10→17:15)
[2017-12-15] MEDS: BACITRACIN 0.9 GM PACKET TP SCH ×2 (10:08→21:13)
[2017-12-15] MEDS: PRENATAL VITAMINS W/ FOLIC ACID TABLET (FP) PO SCH (10:08)
[2017-12-15] MEDS: ESCITALOPRAM OXALATE 10 MG TABLET (FP) PO SCH (10:08)
--- NOTE | 2017-12-15 15:02 | PN ---
[facility] Progress Note Note: Patient c/o of of leg swelling. Denies pain, A/P vertigo, CP, SOB, paresthesia. Vital Signs Temperature 98.1 F 12/15/17 06:38 Pulse Rate 75 12/15/17 06:38 Respiratory Rate 16 12/15/17 06:38 Blood Pressure 146/90 12/15/17 06:38 O2 Sat by Pulse Oximetry (%) A/P AOx3 in no apparent distress Normal HR and Rhythm, no JVD lungs clear throughout ambulating in the unit without DME comfortably skin intact, no erythema, + 1 edema both ankle non-pitting - edema Plan: elevated lower extremities continue to monitor
[2017-12-15] MEDS: MELATONIN 5 MG TABLETS PO PRN (21:13)
[2017-12-15] MEDS: THIAMINE HCL 100 MG TABLET (FP) PO SCH (21:13)
[2017-12-16] MEDS: FERROUS SO4 325 MG TABLET (FP) PO SCH ×3 (07:06→17:52)
[2017-12-16] MEDS: BACITRACIN 0.9 GM PACKET TP SCH ×2 (09:53→21:12)
[2017-12-16] MEDS: PRENATAL VITAMINS W/ FOLIC ACID TABLET (FP) PO SCH (09:54)
[2017-12-16] MEDS: ESCITALOPRAM OXALATE 10 MG TABLET (FP) PO SCH (09:54)
[2017-12-16] MEDS: THIAMINE HCL 100 MG TABLET (FP) PO SCH (21:12)
[2017-12-16] MEDS: MELATONIN 5 MG TABLETS PO PRN (21:13)
[2017-12-17] MEDS: FERROUS SO4 325 MG TABLET (FP) PO SCH ×3 (07:47→17:47)
[2017-12-17] MEDS: PRENATAL VITAMINS W/ FOLIC ACID TABLET (FP) PO SCH (10:00)
[2017-12-17] MEDS: ESCITALOPRAM OXALATE 10 MG TABLET (FP) PO SCH (10:00)
[2017-12-17] MEDS: BACITRACIN 0.9 GM PACKET TP SCH ×2 (10:00→21:15)
[2017-12-17] MEDS ORDERED: PT OWN MED DRAWER 7, Y5N ONE (10:29)
[2017-12-17] MEDS: THIAMINE HCL 100 MG TABLET (FP) PO SCH (21:14)
[2017-12-17] MEDS: traZODone HCL 50 MG TABLET (FP) PO SCH (21:14)
[2017-12-18] MEDS: FERROUS SO4 325 MG TABLET (FP) PO SCH ×3 (07:35→17:55)
[2017-12-18] MEDS: ESCITALOPRAM OXALATE 10 MG TABLET (FP) PO SCH (10:20)
[2017-12-18] MEDS: PRENATAL VITAMINS W/ FOLIC ACID TABLET (FP) PO SCH (10:20)
[2017-12-18] MEDS: BACITRACIN 0.9 GM PACKET TP SCH ×2 (10:21→21:16)
[2017-12-18] MEDS: traZODone HCL 50 MG TABLET (FP) PO SCH (21:16)
[2017-12-18] MEDS: MELATONIN 5 MG TABLETS PO PRN (21:16)
[2017-12-18] MEDS: THIAMINE HCL 100 MG TABLET (FP) PO SCH (21:16)
[2017-12-19] MEDS: FERROUS SO4 325 MG TABLET (FP) PO SCH ×3 (07:31→18:05)
[2017-12-19] MEDS: ESCITALOPRAM OXALATE 10 MG TABLET (FP) PO SCH (09:52)
[2017-12-19] MEDS: BACITRACIN 0.9 GM PACKET TP SCH ×2 (09:52→21:14)
[2017-12-19] MEDS: PRENATAL VITAMINS W/ FOLIC ACID TABLET (FP) PO SCH (09:53)
[2017-12-19] MEDS ORDERED: PT OWN MED DRAWER 7, Y5N ONE ×3 (10:23→15:16)
[2017-12-19] MEDS: MELATONIN 5 MG TABLETS PO PRN (21:14)
[2017-12-19] MEDS: traZODone HCL 50 MG TABLET (FP) PO SCH (21:14)
[2017-12-19] MEDS: THIAMINE HCL 100 MG TABLET (FP) PO SCH (21:14)
--- NOTE | 2017-12-20 00:27 | PN ---
[facility] Progress Note Note: see for fall declines head ct
[2017-12-20] MEDS: FERROUS SO4 325 MG TABLET (FP) PO SCH ×3 (07:02→18:00)
[2017-12-20] MEDS: ESCITALOPRAM OXALATE 10 MG TABLET (FP) PO SCH (10:17)
[2017-12-20] MEDS: BACITRACIN 0.9 GM PACKET TP SCH ×2 (10:17→21:39)
[2017-12-20] MEDS: PRENATAL VITAMINS W/ FOLIC ACID TABLET (FP) PO SCH (10:17)
[2017-12-20] MEDS ORDERED: PT OWN MED DRAWER 7, Y5N ONE ×2 (10:53→15:29)
[2017-12-20] MEDS: MELATONIN 5 MG TABLETS PO PRN (21:39)
[2017-12-20] MEDS: traZODone HCL 50 MG TABLET (FP) PO SCH (21:39)
[2017-12-20] MEDS: THIAMINE HCL 100 MG TABLET (FP) PO SCH (21:39)
[2017-12-21] MEDS: FERROUS SO4 325 MG TABLET (FP) PO SCH ×3 (07:40→17:14)
[2017-12-21] MEDS: BACITRACIN 0.9 GM PACKET TP SCH ×2 (10:22→21:26)
[2017-12-21] MEDS: ESCITALOPRAM OXALATE 10 MG TABLET (FP) PO SCH (10:22)
[2017-12-21] MEDS: PRENATAL VITAMINS W/ FOLIC ACID TABLET (FP) PO SCH (10:22)
[2017-12-21] MEDS: THIAMINE HCL 100 MG TABLET (FP) PO SCH (21:25)
[2017-12-21] MEDS: MELATONIN 5 MG TABLETS PO PRN (21:26)
[2017-12-21] MEDS: traZODone HCL 50 MG TABLET (FP) PO SCH (21:26)
[2017-12-22] MEDS: FERROUS SO4 325 MG TABLET (FP) PO SCH ×3 (07:06→17:30)
[2017-12-22] MEDS: PRENATAL VITAMINS W/ FOLIC ACID TABLET (FP) PO SCH (10:02)
[2017-12-22] MEDS: BACITRACIN 0.9 GM PACKET TP SCH ×2 (10:02→21:16)
[2017-12-22] MEDS: ESCITALOPRAM OXALATE 10 MG TABLET (FP) PO SCH (10:03)
[2017-12-22] MEDS ORDERED: PT OWN MED DRAWER 7, Y5N ONE (10:59)
--- NOTE | 2017-12-22 14:38 | PN ---
[facility] Progress Note Note: c/o of bilateral leg swelling Vital Signs Period Temp Pulse Resp BP Sys/Infante Pulse Ox Last 24 Hr 97.6 F 67-83 18-18 111-128/75-86 A/P Patient Aox3 no adventitious breath sounds no jvd skin intact, no lesions or erythema, + 1 edema both feet ambulating in the unit without limitations - edema b/l LE Plan: increase fluids elevate lower extremities continue to monitor
[2017-12-22] MEDS: THIAMINE HCL 100 MG TABLET (FP) PO SCH (21:16)
[2017-12-22] MEDS: traZODone HCL 50 MG TABLET (FP) PO SCH (21:16)
[2017-12-22] MEDS: MELATONIN 5 MG TABLETS PO PRN (21:17)
[2017-12-23] MEDS: COLLOIDAL OATMEAL 1 BAR EACH TP PRN (06:32)
[2017-12-23 06:53] VITALS: TEMP 97.8
[2017-12-23] MEDS: FERROUS SO4 325 MG TABLET (FP) PO SCH ×3 (08:24→17:20)
[2017-12-23] MEDS ORDERED: PT OWN MED DRAWER 7, Y5N ONE (09:37)
[2017-12-23] MEDS: PRENATAL VITAMINS W/ FOLIC ACID TABLET (FP) PO SCH (10:20)
[2017-12-23] MEDS: BACITRACIN 0.9 GM PACKET TP SCH ×2 (10:20→21:29)
[2017-12-23] MEDS: ESCITALOPRAM OXALATE 10 MG TABLET (FP) PO SCH (10:20)
--- NOTE | 2017-12-23 16:37 | PN ---
Psychiatric Progress Note Vital Signs: Vital Signs Period Temp Pulse Resp BP Sys/Infante Pulse Ox Last 24 Hr 97.8 F 76-85 18-18 110-132/73-86 Date of Session: 12/23/17 Chief Complaint:: Discharge visit HPI: Patient addressed alcohol dependence comorbid with alcohol induced mood disorder. ROS: Significant for history of anemia,metrorrhagia. Current Medications: Active Medications Generic Name Dose Route Start Last Admin Trade Name Freq PRN Reason Stop Dose Admin Acetaminophen 650 mg 12/04/17 16:22 Tylenol - PO Q4H PRN FEVER Al Hydroxide/Mg Hydroxide 30 ml 12/04/17 16:22 Mylanta Oral Suspension - PO Q6H PRN DYSPEPSIA Bacitracin 0.9 gm 12/08/17 22:00 12/23/17 10:20 Bacitracin - TP 0.9 gm BID CON Administration Colloidal Oatmeal 1 applic 12/11/17 15:59 12/23/17 06:32 Aveeno Soap - TP 1 applic DAILY PRN Administration HYGEINE Escitalopram Oxalate 5 mg 12/05/17 10:00 12/23/17 10:20 Lexapro - PO 5 mg DAILY CON Administration Eucalyptus/Menthol/Phenol/Sorbitol 1 each 12/04/17 16:22 Cepastat Lozenge - MM Q4H PRN SORE THROAT Ferrous Sulfate 325 mg 12/04/17 17:30 12/23/17 12:35 Feosol - PO 325 mg TIDCM CON Administration Guaifenesin 10 ml 12/04/17 16:22 Robitussin Dm - PO Q6H PRN COUGH Hydroxyzine Pamoate 50 mg 12/04/17 16:22 12/05/17 21:34 Vistaril - PO 50 mg Q4H PRN Administration AGITATION Ibuprofen 400 mg 12/04/17 16:22 12/20/17 06:48 Motrin - PO 400 mg Q6H PRN Administration Pain Level 4-6 Loperamide HCl 4 mg 12/04/17 16:22 12/12/17 06:48 Imodium - PO 4 mg Q6H PRN Administration DIARRHEA Magnesium Citrate 300 ml 12/04/17 16:22 Citroma - PO Q48H PRN CONSTIPATION Magnesium Hydroxide 30 ml 12/04/17 16:22 Milk Of Magnesia - PO DAILY PRN CONSTIPATION Melatonin 5 mg 12/04/17 22:00 12/22/17 21:17 Melatonin PO 5 mg HS PRN Administration INSOMNIA Multivit/Folic Acid/Iron 1 tab 12/05/17 10:00 12/23/17 10:20 Vitamins (Sjr) - PO 1 tab DAILY CON Administration Pseudoephedrine/Triprolidine 1 combo 12/04/17 16:22 Actifed - PO TID PRN NASAL CONGESTION Thiamine HCl 100 mg 12/04/17 22:00 12/22/17 21:16 Vitamin B1 - PO 100 mg HS CON Administration Trazodone HCl 50 mg 12/17/17 22:00 12/22/17 21:16 Desyrel - PO 50 mg HS CON Administration Current Side Effect: No Lab tests ordered: No Lab tests reviewed: Yes Provider note:: Patient will complete this program tomorrow 12/24/17.she has met her treatment goals and will continue to address her issues on outpatient basis .Patient reports that current medications :Trazodone 50 mg po hs ,Lexapro 5 mg po daily help to cope with depressed mood,sleeping dificulties.Scripts for 30 days provided.Supportive thrapy provided focusing on relapse prevention; coping skills,support utilizations has been discussed with the patient as well as other resourses to maintain recovery. patient is stable for discharge tomorrow. Total face to face time:: 25 Mental Status Exam - Mental Status Exam Alert and Oriented to: Time, Place, Person Cognitive Function: Grossly Intact Patient Appearance: Well Groomed Mood: Euthymic Affect: Appropriate, Mood Congruent Patient Behavior: Appropriate, Cooperative Speech Pattern: Clear Voice Loudness: Normal Thought Process: Goal Oriented Thought Disorder: Not Present Hallucinations: Denies Suicidal Ideation: Denies Homicidal Ideation: Denies Insight/Judgement: Fair Sleep: Fair Appetite: Good Muscle strength/Tone: Normal Gait/Station: Normal Psychiatric Treatment Plan - Problem List (1) Alcohol dependence Current Visit: Yes (2) Back pain Current Visit: Yes Qualifiers: Back pain location: low back pain Chronicity: acute Back pain laterality : midline Sciatica presence: with sciatica Sciatica laterality: bilateral sciatica Qualified Code(s): M54.42 - Lumbago with sciatica, left side; M54.41 - Lumbago with sciatica, right side (3) Menometrorrhagia Current Visit: Yes (4) Anemia Current Visit: Yes (5) Substance induced mood disorder Current Visit: Yes
[2017-12-23] MEDS: THIAMINE HCL 100 MG TABLET (FP) PO SCH (21:28)
[2017-12-23] MEDS: MELATONIN 5 MG TABLETS PO PRN (21:29)
[2017-12-23] MEDS: traZODone HCL 50 MG TABLET (FP) PO SCH (21:29)
[2017-12-24] MEDS: FERROUS SO4 325 MG TABLET (FP) PO SCH (07:17)
[2017-12-24] MEDS: ESCITALOPRAM OXALATE 10 MG TABLET (FP) PO SCH (09:05)
[2017-12-24] MEDS: PRENATAL VITAMINS W/ FOLIC ACID TABLET (FP) PO SCH (09:05)
[2017-12-24] MEDS: BACITRACIN 0.9 GM PACKET TP SCH (09:05)
[2017-12-24 09:15] VITALS: BP 122/86; PULSE 77
== END 2017-12-24 09:22 | disposition home or self-care (01) | DRG 772 ==
LOC: YASAS 16:39 → Y3E 17:35
PROVIDERS: ADMIT Psychiatry & Neurology Psychiatry; ATTEND Psychiatry & Neurology Psychiatry
PROC: HZ42ZZZ Group Counseling for Substance Abuse Treatment, Cognitive-Behavioral (ICD-10-PCS; principal; 2017-12-04)
DX: F10.20 Alcohol dependence, uncomplicated (principal); F19.24 Other psychoactive substance dependence with psychoactive substance-induced mood disorder; F33.9 Major depressive disorder, recurrent, unspecified; D61.818 Other pancytopenia; M54.42 Lumbago with sciatica, left side; M54.41 Lumbago with sciatica, right side; G47.00 Insomnia, unspecified; D64.9 Anemia, unspecified; N92.1 Excessive and frequent menstruation with irregular cycle; R60.0 Localized edema; L98.9 Disorder of the skin and subcutaneous tissue, unspecified; W06.XXXA Fall from bed, initial encounter; Y93.89 Activity, other specified; Y92.230 Patient room in hospital as the place of occurrence of the external cause; Z59.0 Homelessness

== ENCOUNTER 2018-01-19 19:06 | Inpatient (IN) | payer OTHER ==
[2018-01-19 21:38] VITALS: BMI 32.1
--- NOTE | 2018-01-20 00:44 | HP ---
Admission [facility] Chief Complaint: Seeking admission to Rehab Allergies/Adverse Reactions: Allergies Allergy/AdvReac Type Severity Reaction Status Date / Time No Known Allergies Allergy Verified 01/19/18 23:23 History of Present Illness: 47 years old female with a long history of alcohol dependence is seeking admission to Rehab. Patient has been in previous rehab. She has medical history of hypertension and denies suicide attempt or suicidal ideation st t time Exam Limitations: No Limitations - Ebola screening Have you traveled outside of the country in the last 21 days: No Have you had contact with anyone from an Ebola affected area: No Have you been sick,other than usual withdrawal symptoms: No Do you have a fever: No - Review of Systems Constitutional: No Symptoms Reported EENT: reports: No Symptoms Reported Respiratory: reports: No Symptoms reported Cardiac: reports: No Symptoms Reported GI: reports: No Symptoms Reported : reports: No Symptoms Reported Musculoskeletal: reports: No Symptoms Reported Integumentary: reports: No Symptoms Reported Neuro: reports: No Symptoms reported Endocrine: reports: No Symptoms Reported Hematology: reports: No Symptoms Reported Psychiatric: reports: No Sypmtoms Reported, Orientated x3 Other Systems: Reviewed and Negative Patient History - Patient Medical History Hx Anemia: No Hx Asthma: No Hx Chronic Obstructive Pulmonary Disease (COPD): No Hx Cancer: No Hx Cardiac Disorders: No Hx Congestive Heart Failure: No Hx Hypertension: Yes (NOT ON MEDS) Hx Hypercholesterolemia: No Hx Pacemaker: No HX Cerebrovascular Accident: No Hx Seizures: No Hx Dementia: No Hx Diabetes: No Hx Gastrointestinal Disorders: No Hx Liver Disease: No Hx Genitourinary Disorders: No Hx Sexually Transmitted Disorders: No Hx Renal Disease (ESRD): No Hx Thyroid Disease: No Hx Hepatitis C: No Hx Depression: No Hx Suicide Attempt: No Hx Bipolar Disorder: No Hx Schizophrenia: No - Patient Surgical History Past Surgical History: No Hx Neurologic Surgery: No Hx Cataract Extraction: No Hx Cardiac Surgery: No Hx Lung Surgery: No Hx Breast Surgery: No Hx Appendectomy: No Hx Cholecystectomy: No Hx Genitourinary Surgery: No Hx Section: No Hx Orthopedic Surgery: No Hx Hysterectomy: No Anesthesia Reaction: No - PPD History Date: 12/02/17 - Reproductive History Patient is a Female of Child Bearing Age (11 -55 yrs old): Yes Last Menstrual Period: 12/11/17 Patient : No - Smoking Cessation Smoking history: Never smoked Have you smoked in the past 12 months: No Hx Chewing Tobacco Use: No Initiated information on smoking cessation: No - Substance & Tx. History Hx Alcohol Use: Yes Hx Substance Use: No Substance Use Type: None Hx Substance Use Treatment: Yes ([facility]) - Substances Abused Alcohol Route: Oral Frequency: Daily Amount used: VODKA - I PINT Age of first use: 35 Date of Last Use: 12/14/17 Family Disease History - Family Disease History Family Disease History: Other: Father (, unkown ), Mother (, unkown ) Admission Physical Exam [facility] - Vital Signs Vital Signs: Vital Signs - 24 hr 01/19/18 21:34 Temperature 98.2 F Pulse Rate 95 H Respiratory 18 Rate Blood Pressure 126/95 - Physical General Appearance: Yes: Within Normal Limits, No Apparent Distress HEENTM: Yes: EOMI, Normal ENT Inspection, Normocephalic, Normal Voice, JASVIR Respiratory: Yes: Chest Non-Tender, Normal Breath Sounds, No Respiratory Distress Neck: Yes: No masses,lesions,Nodules Breast: Yes: Breast Exam Deferred Cardiology: Yes: Regular Rhythm, Regular Rate Abdominal: Yes: Normal Bowel Sounds, Soft Genitourinary: Yes: Within Normal Limits Back: Yes: Normal Inspection Musculoskeletal: Yes: Within Normal Limits, full range of Motion Extremities: Yes: Within Normal Limits, Normal Inspection 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 NML intact, Alert Integumentary: Yes: Dry, Warm Lymphatic: Yes: Within Normal Limits - Diagnostic (1) Depression Current Visit: Yes Status: Chronic Qualifiers: Depression Type: unspecified Qualified Code(s): F32.9 - Major depressive disorder, single episode, unspecified (2) Major depression Current Visit: Yes Status: Chronic (3) Menometrorrhagia Current Visit: Yes Status: Chronic (4) Neutropenia Current Visit: Yes Status: Chronic (5) Obese Current Visit: Yes Status: Chronic Qualifiers: Obesity type: unspecified obesity type Body mass index: BMI 33.0-33.9 (6) Pancytopenia Current Visit: Yes Status: Chronic (7) Anemia Current Visit: Yes Status: Chronic (8) Back pain Current Visit: Yes Status: Chronic Qualifiers: Back pain location: low back pain Chronicity: acute Back pain laterality : midline Sciatica presence: with sciatica Sciatica laterality: bilateral sciatica Qualified Code(s): M54.42 - Lumbago with sciatica, left side; M54.41 - Lumbago with sciatica, right side Cleared for Admission [facility] - Detox or Rehab [facility] Level of Care: Observation Bed Claeared for Rehab Admission: Yes [facility] Breath Alcohol Content Breath Alcohol Content: 0 Urine Pregancy Test - Result Urine Test Results: Negative- NO Line Present Urine Drug Screen - Results Drug Screen Negative: No Urine Drug Screen Results: BZO-Benzodiazepines
[2018-01-20] MEDS ORDERED: ACETAMINOPHEN 325 MG TABLET (FP) PO PRN (00:57)
[2018-01-20] MEDS ORDERED: LOPERAMIDE HCL 2 MG CAPSULE PO PRN (00:57)
[2018-01-20] MEDS ORDERED: MENTHOL/PHENOL 1 EACH UD MM PRN (00:57)
[2018-01-20] MEDS ORDERED: guaiFENesin/D-METHORPHAN HB 10 ML UNIT-DOSE CUPS PO PRN (00:57)
[2018-01-20] MEDS ORDERED: MAG HYDROX/AL HYDROX/SIMETH 30 ML UNIT-DOSE CUP PO PRN (00:57)
[2018-01-20] MEDS ORDERED: MAGNESIUM HYDROX 2400MG/30ML ORAL SUSPENSION 30 ML CUP PO PRN (00:57)
[2018-01-20] MEDS ORDERED: P-EPHED 60MG/TRIPROLIDI 2.5MG TABLET PO PRN (00:57)
[2018-01-20] MEDS ORDERED: MAGNESIUM CITRATE 300 ML BOTTLE PO PRN (00:57)
[2018-01-20] MEDS ORDERED: PT OWN MED DRAWER 7, Y5N ONE (08:49)
--- NOTE | 2018-01-20 09:02 | EKG ---
Test Reason : Blood Pressure : / mmHG Vent. Rate : 077 BPM Atrial Rate : 077 BPM P-R Int : 140 ms QRS Dur : 090 ms QT Int : 374 ms P-R-T Axes : 040 001 004 degrees QTc Int : 423 ms NORMAL SINUS RHYTHM NORMAL ECG WHEN COMPARED WITH ECG OF 01-DEC-2017 12:53, T WAVE AMPLITUDE HAS INCREASED IN ANTERIOR LEADS QT HAS SHORTENED Confirmed by CHAN HAMILTON, CHELLY ([id number]) on 01/20/2018 9:01:35 AM Referred By: Confirmed By:CHELLY GILES MD
[2018-01-20 09:37] LABS: URINE APPEARANCE SLCLOUDY; URINE BILIRUBIN NEGATIVE (<2.0 mg/dL); URINE COLOR DKYELLOW; URINE GLUCOSE (UA) NEGATIVE (NEGATIVE); URINE KETONE NEGATIVE (NEGATIVE); URINE LEUK ESTERASE TRACE (NEGATIVE); URINE NITRITE NEGATIVE (NEGATIVE); URINE PROTEIN NEGATIVE (NEGATIVE); URINE UROBILINOGEN NEGATIVE mg/dL (0.2-1.0)
[2018-01-20 09:42] LABS: CALCIUM OXALATE CRYSTALS FEW /hpf (NONE SEEN); EPI CELLS MODERATE /HPF (FEW); URINE BACTERIA RARE /hpf (NONE SEEN); URINE HYALINE CAST 2 /lpf; URINE MUCUS RARE
[2018-01-20] MEDS: PRENATAL VITAMINS W/ FOLIC ACID TABLET (FP) PO SCH (10:06)
[2018-01-20 10:58] LABS: HEMATOCRIT 37.4 % (32.4-45.2); HEMOGLOBIN 12.2 GM/dL (10.7-15.3); MCH 30.5 pg (25.7-33.7); MCHC 32.6 g/dl (32.0-36.0); MEAN CELL VOLUME 93.6 fl (80-96); PLATELET COUNT 167 K/MM3 (134-434); RDW 17.3 % (11.6-15.6); WHITE BLOOD COUNT 5.4 K/mm3 (4.0-10.0)
[2018-01-20] MEDS: THIAMINE HCL 100 MG TABLET (FP) PO SCH (21:40)
[2018-01-20] MEDS: MELATONIN 5 MG TABLETS PO PRN (21:41)
[2018-01-21] MEDS: PRENATAL VITAMINS W/ FOLIC ACID TABLET (FP) PO SCH (09:52)
[2018-01-21 10:47] LABS: CALCIUM 8.2 mg/dL (8.5-10.1); CHLORIDE 104 mmol/L (98-107); POTASSIUM 4.4 mmol/L (3.5-5.1); SODIUM 137 mmol/L (136-145)
[2018-01-21 10:53] LABS: ALBUMIN 3.1 g/dl (3.4-5.0); ALK PHOS 48 U/L (45-117); ANION GAP 9 (8-16); BILIRUBIN,TOTAL 0.7 mg/dL (0.2-1.0); BLOOD UREA NITROGEN 21 mg/dL (7-18); CO2 24 mmol/L (21-32); CREATININE 0.8 mg/dL (0.55-1.02); GLUCOSE,RANDOM 132 mg/dL (74-106); SGOT/AST 197 U/L (15-37); SGPT/ALT 243 U/L (12-78); TOT PROT 6.6 g/dl (6.4-8.2)
[2018-01-21] MEDS: MELATONIN 5 MG TABLETS PO PRN (21:30)
[2018-01-21] MEDS: THIAMINE HCL 100 MG TABLET (FP) PO SCH (21:30)
[2018-01-22] MEDS: PRENATAL VITAMINS W/ FOLIC ACID TABLET (FP) PO SCH (09:57)
[2018-01-22] MEDS: NORETHINDRONE ACETATE 5 MG PO SCH (09:57)
[2018-01-22] MEDS ORDERED: NORETHINDRONE ACETATE PO SCH (10:00)
--- NOTE | 2018-01-22 15:40 | HP ---
Psychiatrist Admission - Data Date of interview: 01/22/18 Admission source: [facility] Identifying data: Patient is a 47 year old woman from [facility], , mother of six, unemployed, homeless, and is not currently receiving financial assistance. This is one of multiple admissions to rehab at [facility]. Pt. admitted for alcohol dependence. Medical History: hypertension Psychiatric History: Patient denies h/o psychiatric hospitalizations, outpatient care, and suicide attempt. Patient reports poor sleep. Physical/Sexual Abuse/Trauma History: Denies. Vital Signs: Vital Signs - 24 hr 01/22/18 01/22/18 01/22/18 00:30 03:30 06:56 Temperature 98.4 F Pulse Rate 71 Respiratory 18 18 18 Rate Blood Pressure 132/93 Allergies/Adverse Reactions: Allergies Allergy/AdvReac Type Severity Reaction Status Date / Time No Known Allergies Allergy Verified 01/19/18 23:23 Date of last physical exam: 01/20/18 Concur with the findings of this exam: Yes - Substance Abuse/Tx History Hx Alcohol Use: Yes (1 pint per day) Hx Substance Use: No Hx Substance Use Treatment: Yes (Rehab at [facility] on [facility] on 11/2017) Mental Status Exam - Mental Status Exam Alert and Oriented to: Time, Place, Person Cognitive Function: Good Patient Appearance: Well Groomed Mood: Hopeful Affect: Mood Congruent Patient Behavior: Appropriate, Cooperative Speech Pattern: Clear, Appropriate Voice Loudness: Normal Thought Process: Intact, Goal Oriented Thought Disorder: Not Present Hallucinations: Denies Suicidal Ideation: Denies Homicidal Ideation: Denies Insight/Judgement: Poor Sleep: Poorly Appetite: Fair Muscle strength/Tone: Normal Gait/Station: Normal Psychiatric Findings - Problem List ([place] 1, 2,3) (1) Substance-induced sleep disorder Current Visit: Yes Status: Acute (2) Anemia Current Visit: Yes Status: Chronic (3) Back pain Current Visit: Yes Status: Chronic Qualifiers: Back pain location: low back pain Chronicity: acute Back pain laterality : midline Sciatica presence: with sciatica Sciatica laterality: bilateral sciatica Qualified Code(s): M54.42 - Lumbago with sciatica, left side; M54.41 - Lumbago with sciatica, right side (4) Menometrorrhagia Current Visit: Yes Status: Chronic (5) Neutropenia Current Visit: Yes Status: Chronic (6) Obese Current Visit: Yes Status: Chronic Qualifiers: Obesity type: unspecified obesity type Body mass index: BMI 33.0-33.9 (7) Pancytopenia Current Visit: Yes Status: Chronic (8) Alcohol dependence Current Visit: No Status: Chronic (9) Substance induced mood disorder Current Visit: Yes Status: Acute - Initial Treatment Plan Initial Treatment Plan: Psychoeducation provided. Detoxification in progress. Belsomra 5mg qhs ordered for insomnia. Benefits and side effects discussed. Verbal consent given.
--- NOTE | 2018-01-22 16:16 | PN ---
[facility] Progress Note Note: Patient presents with c/o diarrhea. Patient not medicated with immodium and would like to be medicated. She also states she has follow up appointment with GI 02/02/18. Nursing staff informed and patient advised to inform counselor of appointment to arrange follow up. Patient to request Immodium from RN. Medically stable and in NAD.
[2018-01-22] MEDS ORDERED: SUVOREXANT 10 MG TABLET PO PRN (17:26)
[2018-01-22] MEDS: SUVOREXANT 5 MG TABLET PO PRN (22:06)
[2018-01-22] MEDS: IBUPROFEN 400 MG TABLET (FP) PO PRN (22:06)
[2018-01-22] MEDS: MELATONIN 5 MG TABLETS PO PRN (22:07)
[2018-01-22] MEDS: THIAMINE HCL 100 MG TABLET (FP) PO SCH (22:08)
[2018-01-23] MEDS: PRENATAL VITAMINS W/ FOLIC ACID TABLET (FP) PO SCH (09:50)
[2018-01-23] MEDS: NORETHINDRONE ACETATE 5 MG PO SCH (09:50)
[2018-01-23] MEDS: THIAMINE HCL 100 MG TABLET (FP) PO SCH (21:53)
[2018-01-23] MEDS: SUVOREXANT 5 MG TABLET PO PRN (21:53)
[2018-01-23] MEDS: MELATONIN 5 MG TABLETS PO PRN (21:53)
[2018-01-24] MEDS ORDERED: PT OWN MED DRAWER 7, Y5N ONE (08:39)
[2018-01-24] MEDS: NORETHINDRONE ACETATE 5 MG PO SCH (09:54)
[2018-01-24] MEDS: PRENATAL VITAMINS W/ FOLIC ACID TABLET (FP) PO SCH (09:54)
[2018-01-24] MEDS: MELATONIN 5 MG TABLETS PO PRN (21:58)
[2018-01-24] MEDS: THIAMINE HCL 100 MG TABLET (FP) PO SCH (21:58)
[2018-01-24] MEDS: SUVOREXANT 5 MG TABLET PO PRN (21:58)
[2018-01-25] MEDS ORDERED: PT OWN MED DRAWER 7, Y5N ONE (08:54)
[2018-01-25] MEDS: PRENATAL VITAMINS W/ FOLIC ACID TABLET (FP) PO SCH (10:09)
[2018-01-25] MEDS: NORETHINDRONE ACETATE 5 MG PO SCH (10:10)
[2018-01-25] MEDS: THIAMINE HCL 100 MG TABLET (FP) PO SCH (21:55)
[2018-01-25] MEDS: SUVOREXANT 5 MG TABLET PO PRN (21:55)
[2018-01-25] MEDS: MELATONIN 5 MG TABLETS PO PRN (21:55)
[2018-01-26] MEDS ORDERED: PT OWN MED DRAWER 7, Y5N ONE (08:41)
[2018-01-26] MEDS: NORETHINDRONE ACETATE 5 MG PO SCH (09:52)
[2018-01-26] MEDS: PRENATAL VITAMINS W/ FOLIC ACID TABLET (FP) PO SCH (09:52)
[2018-01-26] MEDS: IBUPROFEN 400 MG TABLET (FP) PO PRN (12:02)
--- NOTE | 2018-01-26 14:21 | PN ---
S Progress Note Note: Vital Signs (72 hours) 01/24/18 01/24/18 01/24/18 00:30 03:30 07:04 Temperature 98.3 F Pulse Rate 62 Respiratory 18 18 18 Rate Blood Pressure 146/99 01/25/18 01/25/18 01/25/18 00:30 03:30 07:22 Temperature 98 F Pulse Rate 68 Respiratory 18 18 18 Rate Blood Pressure 151/95 01/26/18 01/26/18 01/26/18 00:30 03:30 06:33 Temperature 98 F Pulse Rate 70 Respiratory 20 18 18 Rate Blood Pressure 147/97 01/26/18 01/26/18 10:00 12:06 Temperature Pulse Rate 78 70 Respiratory 18 18 Rate Blood Pressure 140/84 151/103 Patient with symptomatic elevated BP. Start on low dose HCTZ 12.5 mg QD increase fluids low sodium diet continue to monitor
[2018-01-26] MEDS: HYDROCHLOROTHIAZIDE 12.5 MG CAPSULE (FP) PO SCH (15:55)
[2018-01-26] MEDS: COLLOIDAL OATMEAL 1 BAR EACH TP PRN (15:56)
[2018-01-26] MEDS: MELATONIN 5 MG TABLETS PO PRN (21:33)
[2018-01-26] MEDS: THIAMINE HCL 100 MG TABLET (FP) PO SCH (21:33)
[2018-01-27] MEDS: NORETHINDRONE ACETATE 5 MG PO SCH (10:02)
[2018-01-27] MEDS: HYDROCHLOROTHIAZIDE 12.5 MG CAPSULE (FP) PO SCH (10:02)
[2018-01-27] MEDS: PRENATAL VITAMINS W/ FOLIC ACID TABLET (FP) PO SCH (10:02)
[2018-01-27] MEDS: IBUPROFEN 400 MG TABLET (FP) PO PRN (10:04)
[2018-01-27] MEDS: THIAMINE HCL 100 MG TABLET (FP) PO SCH (21:41)
[2018-01-27] MEDS: MELATONIN 5 MG TABLETS PO PRN (21:41)
[2018-01-28] MEDS: HYDROCHLOROTHIAZIDE 12.5 MG CAPSULE (FP) PO SCH (10:14)
[2018-01-28] MEDS: PRENATAL VITAMINS W/ FOLIC ACID TABLET (FP) PO SCH (10:14)
[2018-01-28] MEDS: NORETHINDRONE ACETATE 5 MG PO SCH (10:20)
[2018-01-28] MEDS: MELATONIN 5 MG TABLETS PO PRN (21:27)
[2018-01-28] MEDS: THIAMINE HCL 100 MG TABLET (FP) PO SCH (21:27)
[2018-01-29] MEDS: PRENATAL VITAMINS W/ FOLIC ACID TABLET (FP) PO SCH (09:55)
[2018-01-29] MEDS: HYDROCHLOROTHIAZIDE 12.5 MG CAPSULE (FP) PO SCH (09:55)
[2018-01-29] MEDS: THIAMINE HCL 100 MG TABLET (FP) PO SCH (21:48)
[2018-01-29] MEDS: MELATONIN 5 MG TABLETS PO PRN (21:49)
[2018-01-30] MEDS: IBUPROFEN 400 MG TABLET (FP) PO PRN (06:24)
[2018-01-30] MEDS ORDERED: cloNIDine HCL 0.1 MG TABLET PO ONE (07:45)
[2018-01-30] MEDS: PRENATAL VITAMINS W/ FOLIC ACID TABLET (FP) PO SCH (09:34)
[2018-01-30] MEDS: HYDROCHLOROTHIAZIDE 12.5 MG CAPSULE (FP) PO SCH (09:34)
[2018-01-30] MEDS: MELATONIN 5 MG TABLETS PO PRN (21:37)
[2018-01-30] MEDS: THIAMINE HCL 100 MG TABLET (FP) PO SCH (21:37)
[2018-01-31] MEDS: PRENATAL VITAMINS W/ FOLIC ACID TABLET (FP) PO SCH (09:50)
[2018-01-31] MEDS: HYDROCHLOROTHIAZIDE 12.5 MG CAPSULE (FP) PO SCH (09:50)
[2018-01-31] MEDS: THIAMINE HCL 100 MG TABLET (FP) PO SCH (22:19)
[2018-01-31] MEDS: MELATONIN 5 MG TABLETS PO PRN (22:20)
[2018-02-01] MEDS: PRENATAL VITAMINS W/ FOLIC ACID TABLET (FP) PO SCH (10:08)
[2018-02-01] MEDS: HYDROCHLOROTHIAZIDE 12.5 MG CAPSULE (FP) PO SCH (10:08)
[2018-02-01] MEDS: THIAMINE HCL 100 MG TABLET (FP) PO SCH (21:09)
[2018-02-01] MEDS: MELATONIN 5 MG TABLETS PO PRN (21:09)
[2018-02-02] MEDS: IBUPROFEN 400 MG TABLET (FP) PO PRN (06:33)
[2018-02-02] MEDS: PRENATAL VITAMINS W/ FOLIC ACID TABLET (FP) PO SCH (09:44)
[2018-02-02] MEDS: HYDROCHLOROTHIAZIDE 12.5 MG CAPSULE (FP) PO SCH (09:44)
[2018-02-02] MEDS: COLLOIDAL OATMEAL 1 BAR EACH TP PRN (20:30)
[2018-02-02] MEDS: THIAMINE HCL 100 MG TABLET (FP) PO SCH (21:40)
[2018-02-02] MEDS: MELATONIN 5 MG TABLETS PO PRN (21:40)
[2018-02-03] MEDS: PRENATAL VITAMINS W/ FOLIC ACID TABLET (FP) PO SCH (09:40)
[2018-02-03] MEDS: IBUPROFEN 400 MG TABLET (FP) PO PRN ×2 (09:40→21:35)
[2018-02-03] MEDS: HYDROCHLOROTHIAZIDE 12.5 MG CAPSULE (FP) PO SCH (09:40)
[2018-02-03] MEDS ORDERED: PT OWN MED DRAWER 7, Y5N ONE (18:56)
[2018-02-03] MEDS: MELATONIN 5 MG TABLETS PO PRN (21:34)
[2018-02-03] MEDS: THIAMINE HCL 100 MG TABLET (FP) PO SCH (21:34)
[2018-02-04] MEDS: IBUPROFEN 400 MG TABLET (FP) PO PRN (06:34)
[2018-02-04] MEDS: HYDROCHLOROTHIAZIDE 12.5 MG CAPSULE (FP) PO SCH (10:18)
[2018-02-04] MEDS: PRENATAL VITAMINS W/ FOLIC ACID TABLET (FP) PO SCH (10:18)
[2018-02-04] MEDS: MELATONIN 5 MG TABLETS PO PRN (21:47)
[2018-02-04] MEDS: THIAMINE HCL 100 MG TABLET (FP) PO SCH (21:47)
[2018-02-05] MEDS: PRENATAL VITAMINS W/ FOLIC ACID TABLET (FP) PO SCH (10:21)
[2018-02-05] MEDS: HYDROCHLOROTHIAZIDE 12.5 MG CAPSULE (FP) PO SCH (10:21)
[2018-02-05] MEDS: IBUPROFEN 400 MG TABLET (FP) PO PRN (10:22)
[2018-02-05] MEDS: MELATONIN 5 MG TABLETS PO PRN (21:43)
[2018-02-05] MEDS: THIAMINE HCL 100 MG TABLET (FP) PO SCH (21:43)
[2018-02-06] MEDS: HYDROCHLOROTHIAZIDE 12.5 MG CAPSULE (FP) PO SCH (10:05)
[2018-02-06] MEDS: PRENATAL VITAMINS W/ FOLIC ACID TABLET (FP) PO SCH (10:05)
[2018-02-06] MEDS: THIAMINE HCL 100 MG TABLET (FP) PO SCH (22:02)
[2018-02-07] MEDS: HYDROCHLOROTHIAZIDE 12.5 MG CAPSULE (FP) PO SCH (10:20)
[2018-02-07] MEDS: PRENATAL VITAMINS W/ FOLIC ACID TABLET (FP) PO SCH (10:20)
[2018-02-07] MEDS: MELATONIN 5 MG TABLETS PO PRN (21:54)
[2018-02-07] MEDS: THIAMINE HCL 100 MG TABLET (FP) PO SCH (21:54)
[2018-02-08] MEDS: PRENATAL VITAMINS W/ FOLIC ACID TABLET (FP) PO SCH (10:26)
[2018-02-08] MEDS: HYDROCHLOROTHIAZIDE 12.5 MG CAPSULE (FP) PO SCH (10:26)
[2018-02-08] MEDS: THIAMINE HCL 100 MG TABLET (FP) PO SCH (21:48)
[2018-02-08] MEDS: MELATONIN 5 MG TABLETS PO PRN (21:48)
[2018-02-09] MEDS: HYDROCHLOROTHIAZIDE 12.5 MG CAPSULE (FP) PO SCH (10:28)
[2018-02-09] MEDS: PRENATAL VITAMINS W/ FOLIC ACID TABLET (FP) PO SCH (10:29)
[2018-02-09] MEDS: MELATONIN 5 MG TABLETS PO PRN (21:42)
[2018-02-09] MEDS: THIAMINE HCL 100 MG TABLET (FP) PO SCH (21:42)
[2018-02-10] MEDS: PRENATAL VITAMINS W/ FOLIC ACID TABLET (FP) PO SCH (10:32)
[2018-02-10] MEDS: HYDROCHLOROTHIAZIDE 12.5 MG CAPSULE (FP) PO SCH (10:32)
[2018-02-10] MEDS: THIAMINE HCL 100 MG TABLET (FP) PO SCH (21:48)
[2018-02-10] MEDS: MELATONIN 5 MG TABLETS PO PRN (21:48)
[2018-02-10] MEDS: traZODone HCL 100 MG TABLET (FP) PO SCH (21:49)
[2018-02-10] MEDS: COLLOIDAL OATMEAL 1 BAR EACH TP PRN (21:50)
[2018-02-11] MEDS: PRENATAL VITAMINS W/ FOLIC ACID TABLET (FP) PO SCH (10:14)
[2018-02-11] MEDS: HYDROCHLOROTHIAZIDE 12.5 MG CAPSULE (FP) PO SCH (10:14)
[2018-02-11] MEDS: THIAMINE HCL 100 MG TABLET (FP) PO SCH (21:50)
[2018-02-11] MEDS: traZODone HCL 100 MG TABLET (FP) PO SCH (21:50)
[2018-02-11] MEDS: MELATONIN 5 MG TABLETS PO PRN (21:50)
[2018-02-12] MEDS: PRENATAL VITAMINS W/ FOLIC ACID TABLET (FP) PO SCH (10:49)
[2018-02-12] MEDS: HYDROCHLOROTHIAZIDE 12.5 MG CAPSULE (FP) PO SCH (10:49)
[2018-02-12] MEDS: MELATONIN 5 MG TABLETS PO PRN (21:41)
[2018-02-12] MEDS: traZODone HCL 100 MG TABLET (FP) PO SCH (21:41)
[2018-02-12] MEDS: THIAMINE HCL 100 MG TABLET (FP) PO SCH (21:41)
[2018-02-13] MEDS: HYDROCHLOROTHIAZIDE 12.5 MG CAPSULE (FP) PO SCH (10:05)
[2018-02-13] MEDS: PRENATAL VITAMINS W/ FOLIC ACID TABLET (FP) PO SCH (10:05)
[2018-02-13] MEDS: MELATONIN 5 MG TABLETS PO PRN (21:38)
[2018-02-13] MEDS: THIAMINE HCL 100 MG TABLET (FP) PO SCH (21:38)
[2018-02-13] MEDS: traZODone HCL 100 MG TABLET (FP) PO SCH (21:38)
[2018-02-14] MEDS: HYDROCHLOROTHIAZIDE 12.5 MG CAPSULE (FP) PO SCH (09:56)
[2018-02-14] MEDS: PRENATAL VITAMINS W/ FOLIC ACID TABLET (FP) PO SCH (09:56)
--- NOTE | 2018-02-14 18:05 | PN ---
S Progress Note Note: Patient c/o of bilateral lower extremity pain and swelling after participating in kajal class two days ago. Denies decrease mobility, paresthesia, SOB or CP. Vital Signs Temperature 97.3 F L 02/14/18 07:00 Pulse Rate 83 02/14/18 09:24 Respiratory Rate 18 02/14/18 07:00 Blood Pressure 135/93 02/14/18 09:24 O2 Sat by Pulse Oximetry (%) A/P Patient Aox3 no distress no adventitious breath sounds s1 s2 no JVD, pulses present through out + edema on both ankle Full ROM ambulating in the unit skin intact, no erythema, cool to touch - muscle soreness ( leg pain) Plan: tylenol PRN elevate B/l lower extremities increase fluids asa 81 mg qd continue to monitor
[2018-02-14] MEDS: ASPIRIN COATED 81 MG TABLET.EC PO SCH (19:00)
[2018-02-14] MEDS: THIAMINE HCL 100 MG TABLET (FP) PO SCH (21:39)
[2018-02-14] MEDS: traZODone HCL 100 MG TABLET (FP) PO SCH (21:39)
[2018-02-14] MEDS: MELATONIN 5 MG TABLETS PO PRN (21:39)
[2018-02-14] MEDS: IBUPROFEN 400 MG TABLET (FP) PO PRN (21:40)
[2018-02-15] MEDS: PRENATAL VITAMINS W/ FOLIC ACID TABLET (FP) PO SCH (10:36)
[2018-02-15] MEDS: ASPIRIN COATED 81 MG TABLET.EC PO SCH (10:37)
[2018-02-15] MEDS: HYDROCHLOROTHIAZIDE 12.5 MG CAPSULE (FP) PO SCH (10:37)
[2018-02-15] MEDS: MELATONIN 5 MG TABLETS PO PRN (22:23)
[2018-02-15] MEDS: THIAMINE HCL 100 MG TABLET (FP) PO SCH (22:23)
[2018-02-15] MEDS: traZODone HCL 100 MG TABLET (FP) PO SCH (22:24)
[2018-02-16 07:14] VITALS: TEMP 97.7
[2018-02-16] MEDS: HYDROCHLOROTHIAZIDE 12.5 MG CAPSULE (FP) PO SCH (09:09)
[2018-02-16] MEDS: ASPIRIN COATED 81 MG TABLET.EC PO SCH (09:09)
[2018-02-16] MEDS: PRENATAL VITAMINS W/ FOLIC ACID TABLET (FP) PO SCH (09:10)
[2018-02-16 09:31] VITALS: BP 135/52; PULSE 91
== END 2018-02-16 10:25 | disposition home or self-care (01) | DRG 772 ==
LOC: YASAS 19:06 → Y3W 22:33 → Y3E 02-03 18:29
PROVIDERS: ADMIT Psychiatry & Neurology Psychiatry; ATTEND Psychiatry & Neurology Psychiatry
PROC: HZ42ZZZ Group Counseling for Substance Abuse Treatment, Cognitive-Behavioral (ICD-10-PCS; principal; 2018-01-19)
DX: F10.20 Alcohol dependence, uncomplicated (principal); F32.9 Major depressive disorder, single episode, unspecified; F19.24 Other psychoactive substance dependence with psychoactive substance-induced mood disorder; F19.282 Other psychoactive substance dependence with psychoactive substance-induced sleep disorder; D70.9 Neutropenia, unspecified; D64.9 Anemia, unspecified; D61.818 Other pancytopenia; N92.1 Excessive and frequent menstruation with irregular cycle; I10 Essential (primary) hypertension; R19.7 Diarrhea, unspecified; M79.604 Pain in right leg; M79.605 Pain in left leg; R60.0 Localized edema; E66.9 Obesity, unspecified; Z68.32 Body mass index [BMI] 32.0-32.9, adult; M54.41 Lumbago with sciatica, right side; M54.42 Lumbago with sciatica, left side; Z59.0 Homelessness
CPT/HCPCS: 36415; 80053; 81003; 81015; 82962; 85027; 86593; 93005; 93010; J0735

== ENCOUNTER 2021-12-08 18:55 | Inpatient (IN) | payer OTHER ==
[2021-12-08 19:22] VITALS: BMI 34.0
[2021-12-08] MEDS ORDERED: LOPERAMIDE HCL 2 MG CAPSULE PO PRN (19:47)
[2021-12-08] MEDS ORDERED: IBUPROFEN 400 MG TABLET (FP) PO PRN (19:47)
[2021-12-08] MEDS ORDERED: chlordiazePOXIDE HCL 25 MG CAPSULE PO PRN (19:47)
[2021-12-08] MEDS ORDERED: BISMUTH SUBSALICYLATE 524 MG/30 ML PO PRN (19:47)
[2021-12-08] MEDS ORDERED: BENZOCAINE/MENTHOL (CHLORASEPTIC ) LOZENGE MM PRN (19:47)
[2021-12-08] MEDS ORDERED: ONDANSETRON *ODT* 4 MG TABLET SL PRN (19:47)
[2021-12-08] MEDS ORDERED: DICYCLOMINE HCL 10 MG CAPSULE PO PRN (19:47)
[2021-12-08] MEDS ORDERED: ACETAMINOPHEN 325 MG TABLET (FP) PO PRN (19:47)
[2021-12-08] MEDS ORDERED: MAGNESIUM CITRATE 300 ML BOTTLE PO PRN (19:47)
[2021-12-08] MEDS ORDERED: MAGNESIUM HYDROX 2400MG/30ML ORAL SUSPENSION 30 ML CUP PO PRN (19:47)
[2021-12-08] MEDS ORDERED: MAG HYDROX/AL HYDROX/SIMETH 30 ML UNIT-DOSE CUP PO PRN (19:47)
[2021-12-08] MEDS ORDERED: cloNIDine HCL 0.1 MG TABLET PO ONE (21:18)
[2021-12-08] MEDS: ACETAMINOPHEN 325 MG TABLET (FP) PO PRN (22:02)
[2021-12-08] MEDS: MELATONIN 5 MG TABLETS PO SCH (22:02)
[2021-12-08] MEDS: chlordiazePOXIDE HCL 25 MG CAPSULE PO SCH (22:03)
[2021-12-08] MEDS: THIAMINE HCL 100 MG TABLET (FP) PO SCH (22:44)
[2021-12-09] MEDS: chlordiazePOXIDE HCL 25 MG CAPSULE PO SCH ×4 (05:37→22:23)
[2021-12-09] MEDS ORDERED: cloNIDine HCL 0.1 MG TABLET PO ONE (07:45)
[2021-12-09] MEDS: PRENATAL VITAMINS W/ FOLIC ACID TABLET (FP) PO SCH (10:11)
[2021-12-09] MEDS: HYDROCHLOROTHIAZIDE 12.5 MG CAPSULE (FP) PO SCH (10:12)
[2021-12-09] MEDS: ASPIRIN COATED 81 MG TABLET.EC PO SCH (10:12)
[2021-12-09 10:33] LABS: HEMATOCRIT 36.5 % (32.4-45.2); HEMOGLOBIN 12.4 GM/dL (10.7-15.3); MCH 30.2 pg (25.7-33.7); MCHC 34.1 g/dl (32.0-36.0); MEAN CELL VOLUME 88.7 fl (80-96); MEAN PLT VOLUME 7.8 fl (7.5-11.1); PLATELET COUNT 71 10^3/uL (134-434); RBC 4.12 M/mm3 (3.60-5.2); RDW 15.2 % (11.6-15.6)
[2021-12-09 10:39] LABS: WHITE BLOOD COUNT 1.3 K/mm3 (4.0-10.0)
[2021-12-09 11:06] LABS: ALBUMIN 3.3 g/dl (3.4-5.0); CALCIUM 8.7 mg/dL (8.5-10.1)
[2021-12-09 11:09] LABS: CREATININE 0.6 mg/dL (0.55-1.3)
[2021-12-09 11:11] LABS: BILIRUBIN,TOTAL 1.2 mg/dL (0.2-1); TOT PROT 7.1 g/dl (6.4-8.2)
[2021-12-09] MEDS ORDERED: POTASSIUM CHLORIDE ORAL LIQUID 20 MEQ/15 ML PO ONE (11:30)
[2021-12-09] MEDS: amLODIPine BESYLATE 5 MG TABLET (FP) PO SCH (13:20)
[2021-12-09] MEDS: THIAMINE HCL 100 MG TABLET (FP) PO SCH (22:23)
[2021-12-09] MEDS: POTASSIUM CHLORIDE ORAL LIQUID 20 MEQ/15 ML PO SCH (22:23)
[2021-12-09] MEDS: ACETAMINOPHEN 325 MG TABLET (FP) PO PRN (22:25)
[2021-12-09] MEDS: MELATONIN 5 MG TABLETS PO SCH (22:27)
[2021-12-10] MEDS: chlordiazePOXIDE HCL 25 MG CAPSULE PO SCH ×4 (05:42→22:23)
[2021-12-10] MEDS: POTASSIUM CHLORIDE ORAL LIQUID 20 MEQ/15 ML PO SCH ×2 (10:16→22:24)
[2021-12-10] MEDS: PRENATAL VITAMINS W/ FOLIC ACID TABLET (FP) PO SCH (10:17)
[2021-12-10] MEDS: ASPIRIN COATED 81 MG TABLET.EC PO SCH (10:17)
[2021-12-10] MEDS: HYDROCHLOROTHIAZIDE 12.5 MG CAPSULE (FP) PO SCH (10:17)
[2021-12-10] MEDS: amLODIPine BESYLATE 5 MG TABLET (FP) PO SCH (10:18)
[2021-12-10] MEDS: ACETAMINOPHEN 325 MG TABLET (FP) PO PRN ×2 (10:19→22:26)
[2021-12-10 11:43] LABS: HEMATOCRIT 40.3 % (32.4-45.2); HEMOGLOBIN 13.3 GM/dL (10.7-15.3); MCH 29.7 pg (25.7-33.7); MCHC 33.1 g/dl (32.0-36.0); MEAN CELL VOLUME 89.7 fl (80-96); PLATELET COUNT 65 10^3/uL (134-434); RBC 4.49 M/mm3 (3.60-5.2); RDW 15.4 % (11.6-15.6)
[2021-12-10 11:48] LABS: WHITE BLOOD COUNT 1.7 K/mm3 (4.0-10.0)
[2021-12-10 14:12] LABS: SARS-CoV-2 NAA Not Detected (Not Detected)
[2021-12-10] MEDS ORDERED: POTASSIUM CHLORIDE ORAL LIQUID 20 MEQ/15 ML PO ONE (16:05)
[2021-12-10] MEDS: MELATONIN 5 MG TABLETS PO SCH (22:22)
[2021-12-10] MEDS: THIAMINE HCL 100 MG TABLET (FP) PO SCH (22:22)
[2021-12-10] MEDS: METHOCARBAMOL 500 MG TABLET PO PRN (22:25)
[2021-12-11] MEDS ORDERED: chlordiazePOXIDE HCL 10 MG CAPSULE PO PRN
[2021-12-11] MEDS: chlordiazePOXIDE HCL 10 MG CAPSULE PO SCH ×4 (05:31→22:39)
[2021-12-11 09:50] LABS: HEMATOCRIT 40.7 % (32.4-45.2); HEMOGLOBIN 13.7 GM/dL (10.7-15.3); MCH 30.2 pg (25.7-33.7); MCHC 33.5 g/dl (32.0-36.0); MEAN PLT VOLUME 8.1 fl (7.5-11.1); PLATELET COUNT 61 10^3/uL (134-434); RBC 4.53 M/mm3 (3.60-5.2); RDW 15.6 % (11.6-15.6); WHITE BLOOD COUNT 2.4 K/mm3 (4.0-10.0)
[2021-12-11] MEDS: amLODIPine BESYLATE 5 MG TABLET (FP) PO SCH (10:16)
[2021-12-11] MEDS: ASPIRIN COATED 81 MG TABLET.EC PO SCH (10:16)
[2021-12-11] MEDS: PRENATAL VITAMINS W/ FOLIC ACID TABLET (FP) PO SCH (10:16)
[2021-12-11] MEDS: HYDROCHLOROTHIAZIDE 12.5 MG CAPSULE (FP) PO SCH (10:16)
[2021-12-11] MEDS: ACETAMINOPHEN 325 MG TABLET (FP) PO PRN ×2 (10:17→22:41)
[2021-12-11 10:30] LABS: ANISOCYTOSIS 1+; MACROCYTOSIS 0
[2021-12-11] MEDS: THIAMINE HCL 100 MG TABLET (FP) PO SCH (22:38)
[2021-12-11] MEDS: MELATONIN 5 MG TABLETS PO SCH (22:38)
[2021-12-12] MEDS: chlordiazePOXIDE HCL 10 MG CAPSULE PO SCH ×2 (06:25→18:07)
[2021-12-12] MEDS: ASPIRIN COATED 81 MG TABLET.EC PO SCH (10:12)
[2021-12-12] MEDS: PRENATAL VITAMINS W/ FOLIC ACID TABLET (FP) PO SCH (10:12)
[2021-12-12] MEDS: amLODIPine BESYLATE 5 MG TABLET (FP) PO SCH (10:12)
[2021-12-12] MEDS: HYDROCHLOROTHIAZIDE 12.5 MG CAPSULE (FP) PO SCH (10:12)
[2021-12-12] MEDS ORDERED: COLLOIDAL OATMEAL 1 BAR EACH TP PRN (11:21)
[2021-12-12] MEDS: METHOCARBAMOL 500 MG TABLET PO PRN (18:06)
[2021-12-12] MEDS: ACETAMINOPHEN 325 MG TABLET (FP) PO PRN (18:07)
[2021-12-12] MEDS: MELATONIN 5 MG TABLETS PO SCH (22:34)
[2021-12-12] MEDS: THIAMINE HCL 100 MG TABLET (FP) PO SCH (22:34)
[2021-12-13] MEDS ORDERED: chlordiazePOXIDE HCL 10 MG CAPSULE PO ONE (05:00)
[2021-12-13 10:14] LABS: HEMATOCRIT 36.7 % (32.4-45.2); HEMOGLOBIN 12.4 GM/dL (10.7-15.3); MCH 30.2 pg (25.7-33.7); MCHC 33.7 g/dl (32.0-36.0); MEAN CELL VOLUME 89.7 fl (80-96); MEAN PLT VOLUME 8.6 fl (7.5-11.1); PLATELET COUNT 47 10^3/uL (134-434); RBC 4.09 M/mm3 (3.60-5.2); RDW 15.4 % (11.6-15.6); WHITE BLOOD COUNT 2.3 K/mm3 (4.0-10.0)
[2021-12-13] MEDS: PRENATAL VITAMINS W/ FOLIC ACID TABLET (FP) PO SCH (10:39)
[2021-12-13] MEDS: ASPIRIN COATED 81 MG TABLET.EC PO SCH (10:39)
[2021-12-13] MEDS: HYDROCHLOROTHIAZIDE 12.5 MG CAPSULE (FP) PO SCH (10:39)
[2021-12-13] MEDS: amLODIPine BESYLATE 5 MG TABLET (FP) PO SCH (10:39)
[2021-12-13 12:35] VITALS: BP 110/78; PULSE 69; TEMP 97.1
== END 2021-12-13 15:33 | disposition other institution (70) | DRG 775 ==
LOC: YASAS 18:55 → Y3N 19:59
PROVIDERS: ADMIT Allergy & Immunology; ATTEND Surgery
PROC: HZ2ZZZZ Detoxification Services for Substance Abuse Treatment (ICD-10-PCS; principal; 2021-12-08)
DX: F10.230 Alcohol dependence with withdrawal, uncomplicated (principal); F33.9 Major depressive disorder, recurrent, unspecified; F19.24 Other psychoactive substance dependence with psychoactive substance-induced mood disorder; G47.00 Insomnia, unspecified; D69.6 Thrombocytopenia, unspecified; D72.819 Decreased white blood cell count, unspecified; E87.6 Hypokalemia; I10 Essential (primary) hypertension; M54.41 Lumbago with sciatica, right side; M54.42 Lumbago with sciatica, left side; E66.9 Obesity, unspecified; Z68.34 Body mass index [BMI] 34.0-34.9, adult; Z87.891 Personal history of nicotine dependence; Z56.0 Unemployment, unspecified; Z59.00 Homelessness unspecified
CPT/HCPCS: 36415; 80053; 81025; 84132; 85025; 85027; 86780; 87811; 93005; 93010; C9803-CS; J0735; U0003; U0005

== ENCOUNTER 2021-12-13 15:39 | Inpatient (IN) | payer OTHER ==
[2021-12-13] MEDS ORDERED: guaiFENesin 200 MG/10 ML 10 ML UNIT-DOSE CUPS PO PRN (15:54)
[2021-12-13] MEDS ORDERED: LOPERAMIDE HCL 2 MG CAPSULE PO PRN (15:54)
[2021-12-13] MEDS ORDERED: NICOTINE 10 MG CARTRIDGE (INHALER) IH PRN (15:54)
[2021-12-13] MEDS ORDERED: MAG HYDROX/AL HYDROX/SIMETH 30 ML UNIT-DOSE CUP PO PRN (15:54)
[2021-12-13] MEDS ORDERED: P-EPHED 60MG/TRIPROLIDI 2.5MG TABLET PO PRN (15:54)
[2021-12-13] MEDS ORDERED: BENZOCAINE/MENTHOL (CHLORASEPTIC ) LOZENGE MM PRN (15:54)
[2021-12-13] MEDS ORDERED: MAGNESIUM CITRATE 300 ML BOTTLE PO PRN (15:54)
[2021-12-13] MEDS ORDERED: MAGNESIUM HYDROX 2400MG/30ML ORAL SUSPENSION 30 ML CUP PO PRN (15:54)
[2021-12-13] MEDS: MELATONIN 5 MG TABLETS PO SCH (21:29)
[2021-12-13] MEDS: THIAMINE HCL 100 MG TABLET (FP) PO SCH (21:29)
[2021-12-14] MEDS: NICOTINE 7 MG/24 HOURS TOPICAL PATCH TD SCH (10:16)
[2021-12-14] MEDS: PRENATAL VITAMINS W/ FOLIC ACID TABLET (FP) PO SCH (10:16)
[2021-12-14] MEDS: ACETAMINOPHEN 325 MG TABLET (FP) PO PRN (10:17)
[2021-12-14] MEDS: IBUPROFEN 400 MG TABLET (FP) PO PRN (13:36)
[2021-12-14] MEDS: THIAMINE HCL 100 MG TABLET (FP) PO SCH (21:42)
[2021-12-14] MEDS: MELATONIN 5 MG TABLETS PO SCH (21:42)
[2021-12-14] MEDS ORDERED: traZODone HCL 50 MG TABLET (FP) PO ONE (22:00)
[2021-12-15] MEDS ORDERED: cloNIDine HCL 0.1 MG TABLET PO ONE (07:00)
[2021-12-15] MEDS: PRENATAL VITAMINS W/ FOLIC ACID TABLET (FP) PO SCH (10:14)
[2021-12-15] MEDS: NICOTINE 7 MG/24 HOURS TOPICAL PATCH TD SCH (10:14)
[2021-12-15] MEDS: IBUPROFEN 400 MG TABLET (FP) PO PRN (10:15)
[2021-12-15] MEDS: COLLOIDAL OATMEAL 1 BAR EACH TP PRN (10:16)
[2021-12-15] MEDS: HYDROCHLOROTHIAZIDE 12.5 MG CAPSULE (FP) PO SCH (11:57)
[2021-12-15] MEDS: ASPIRIN COATED 81 MG TABLET.EC PO SCH (11:57)
[2021-12-15] MEDS: THIAMINE HCL 100 MG TABLET (FP) PO SCH (21:25)
[2021-12-15] MEDS: SUVOREXANT 10 MG TABLET PO PRN (21:26)
[2021-12-16] MEDS: NICOTINE 7 MG/24 HOURS TOPICAL PATCH TD SCH (10:18)
[2021-12-16] MEDS: PRENATAL VITAMINS W/ FOLIC ACID TABLET (FP) PO SCH (10:18)
[2021-12-16] MEDS: HYDROCHLOROTHIAZIDE 12.5 MG CAPSULE (FP) PO SCH (10:18)
[2021-12-16] MEDS: ASPIRIN COATED 81 MG TABLET.EC PO SCH (10:18)
[2021-12-16] MEDS: THIAMINE HCL 100 MG TABLET (FP) PO SCH (21:29)
[2021-12-16] MEDS: SUVOREXANT 10 MG TABLET PO PRN (21:29)
[2021-12-17] MEDS: PRENATAL VITAMINS W/ FOLIC ACID TABLET (FP) PO SCH (10:04)
[2021-12-17] MEDS: HYDROCHLOROTHIAZIDE 12.5 MG CAPSULE (FP) PO SCH (10:05)
[2021-12-17] MEDS: NICOTINE 7 MG/24 HOURS TOPICAL PATCH TD SCH (10:05)
[2021-12-17] MEDS: ASPIRIN COATED 81 MG TABLET.EC PO SCH (10:05)
[2021-12-17] MEDS: THIAMINE HCL 100 MG TABLET (FP) PO SCH (21:33)
[2021-12-17] MEDS: SUVOREXANT 10 MG TABLET PO PRN (21:35)
[2021-12-18] MEDS: NICOTINE 7 MG/24 HOURS TOPICAL PATCH TD SCH (10:11)
[2021-12-18] MEDS: PRENATAL VITAMINS W/ FOLIC ACID TABLET (FP) PO SCH (10:11)
[2021-12-18] MEDS: ASPIRIN COATED 81 MG TABLET.EC PO SCH (10:11)
[2021-12-18] MEDS: HYDROCHLOROTHIAZIDE 12.5 MG CAPSULE (FP) PO SCH (10:11)
[2021-12-18] MEDS: ACETAMINOPHEN 325 MG TABLET (FP) PO PRN (10:15)
[2021-12-18] MEDS: THIAMINE HCL 100 MG TABLET (FP) PO SCH (21:30)
[2021-12-18] MEDS: SUVOREXANT 10 MG TABLET PO PRN (21:30)
[2021-12-19] MEDS: PRENATAL VITAMINS W/ FOLIC ACID TABLET (FP) PO SCH (10:26)
[2021-12-19] MEDS: ASPIRIN COATED 81 MG TABLET.EC PO SCH (10:27)
[2021-12-19] MEDS: NICOTINE 7 MG/24 HOURS TOPICAL PATCH TD SCH (10:27)
[2021-12-19] MEDS: HYDROCHLOROTHIAZIDE 12.5 MG CAPSULE (FP) PO SCH (10:27)
[2021-12-19] MEDS: ACETAMINOPHEN 325 MG TABLET (FP) PO PRN (10:28)
[2021-12-19] MEDS: IBUPROFEN 400 MG TABLET (FP) PO PRN (21:41)
[2021-12-19] MEDS: THIAMINE HCL 100 MG TABLET (FP) PO SCH (21:42)
[2021-12-19] MEDS: SUVOREXANT 10 MG TABLET PO PRN (21:42)
[2021-12-20] MEDS: PRENATAL VITAMINS W/ FOLIC ACID TABLET (FP) PO SCH (10:22)
[2021-12-20] MEDS: ASPIRIN COATED 81 MG TABLET.EC PO SCH (10:23)
[2021-12-20] MEDS: HYDROCHLOROTHIAZIDE 12.5 MG CAPSULE (FP) PO SCH (10:23)
[2021-12-20] MEDS: NICOTINE 7 MG/24 HOURS TOPICAL PATCH TD SCH (10:23)
[2021-12-20] MEDS: ACETAMINOPHEN 325 MG TABLET (FP) PO PRN (10:23)
[2021-12-20] MEDS: IBUPROFEN 400 MG TABLET (FP) PO PRN (21:42)
[2021-12-20] MEDS: THIAMINE HCL 100 MG TABLET (FP) PO SCH (21:42)
[2021-12-20] MEDS: SUVOREXANT 10 MG TABLET PO PRN (21:43)
[2021-12-21] MEDS: IBUPROFEN 400 MG TABLET (FP) PO PRN (07:11)
[2021-12-21] MEDS: PRENATAL VITAMINS W/ FOLIC ACID TABLET (FP) PO SCH (10:25)
[2021-12-21] MEDS: HYDROCHLOROTHIAZIDE 12.5 MG CAPSULE (FP) PO SCH (10:26)
[2021-12-21] MEDS: NICOTINE 7 MG/24 HOURS TOPICAL PATCH TD SCH (10:26)
[2021-12-21] MEDS: ASPIRIN COATED 81 MG TABLET.EC PO SCH (10:26)
[2021-12-21] MEDS: ACETAMINOPHEN 325 MG TABLET (FP) PO PRN (21:40)
[2021-12-21] MEDS: THIAMINE HCL 100 MG TABLET (FP) PO SCH (21:40)
[2021-12-21] MEDS: SUVOREXANT 10 MG TABLET PO PRN (21:40)
[2021-12-22] MEDS: IBUPROFEN 400 MG TABLET (FP) PO PRN (06:32)
[2021-12-22] MEDS: PRENATAL VITAMINS W/ FOLIC ACID TABLET (FP) PO SCH (10:20)
[2021-12-22] MEDS: HYDROCHLOROTHIAZIDE 12.5 MG CAPSULE (FP) PO SCH (10:20)
[2021-12-22] MEDS: ASPIRIN COATED 81 MG TABLET.EC PO SCH (10:20)
[2021-12-22] MEDS: NICOTINE 7 MG/24 HOURS TOPICAL PATCH TD SCH (10:21)
[2021-12-22] MEDS: SUVOREXANT 10 MG TABLET PO PRN (21:49)
[2021-12-22] MEDS: THIAMINE HCL 100 MG TABLET (FP) PO SCH (21:49)
[2021-12-22] MEDS: ACETAMINOPHEN 325 MG TABLET (FP) PO PRN (21:50)
[2021-12-23] MEDS: PRENATAL VITAMINS W/ FOLIC ACID TABLET (FP) PO SCH (10:36)
[2021-12-23] MEDS: ASPIRIN COATED 81 MG TABLET.EC PO SCH (10:37)
[2021-12-23] MEDS: NICOTINE 7 MG/24 HOURS TOPICAL PATCH TD SCH (10:37)
[2021-12-23] MEDS: HYDROCHLOROTHIAZIDE 12.5 MG CAPSULE (FP) PO SCH (10:37)
[2021-12-23] MEDS: THIAMINE HCL 100 MG TABLET (FP) PO SCH (21:53)
[2021-12-23] MEDS: SUVOREXANT 10 MG TABLET PO PRN (21:55)
[2021-12-24] MEDS: HYDROCHLOROTHIAZIDE 12.5 MG CAPSULE (FP) PO SCH (10:57)
[2021-12-24] MEDS: PRENATAL VITAMINS W/ FOLIC ACID TABLET (FP) PO SCH (10:57)
[2021-12-24] MEDS: NICOTINE 7 MG/24 HOURS TOPICAL PATCH TD SCH (10:58)
[2021-12-24] MEDS: ASPIRIN COATED 81 MG TABLET.EC PO SCH (10:58)
[2021-12-24] MEDS: ACETAMINOPHEN 325 MG TABLET (FP) PO PRN (10:58)
[2021-12-24] MEDS ORDERED: METHOCARBAMOL 500 MG TABLET PO PRN (16:12)
[2021-12-24] MEDS: THIAMINE HCL 100 MG TABLET (FP) PO SCH (21:54)
[2021-12-24] MEDS: SUVOREXANT 10 MG TABLET PO PRN (21:55)
[2021-12-25] MEDS: HYDROCHLOROTHIAZIDE 12.5 MG CAPSULE (FP) PO SCH (10:08)
[2021-12-25] MEDS: NICOTINE 7 MG/24 HOURS TOPICAL PATCH TD SCH (10:09)
[2021-12-25] MEDS: PRENATAL VITAMINS W/ FOLIC ACID TABLET (FP) PO SCH (10:09)
[2021-12-25] MEDS: ASPIRIN COATED 81 MG TABLET.EC PO SCH (10:09)
[2021-12-25] MEDS: ACETAMINOPHEN 325 MG TABLET (FP) PO PRN (21:28)
[2021-12-25] MEDS: THIAMINE HCL 100 MG TABLET (FP) PO SCH (21:28)
[2021-12-25] MEDS: SUVOREXANT 10 MG TABLET PO PRN (21:31)
[2021-12-26] MEDS: HYDROCHLOROTHIAZIDE 12.5 MG CAPSULE (FP) PO SCH (10:10)
[2021-12-26] MEDS: NICOTINE 7 MG/24 HOURS TOPICAL PATCH TD SCH (10:11)
[2021-12-26] MEDS: ASPIRIN COATED 81 MG TABLET.EC PO SCH (10:11)
[2021-12-26] MEDS: PRENATAL VITAMINS W/ FOLIC ACID TABLET (FP) PO SCH (10:11)
[2021-12-26] MEDS: THIAMINE HCL 100 MG TABLET (FP) PO SCH (21:21)
[2021-12-26] MEDS: SUVOREXANT 10 MG TABLET PO PRN (21:21)
[2021-12-27] MEDS: HYDROCHLOROTHIAZIDE 12.5 MG CAPSULE (FP) PO SCH (09:54)
[2021-12-27] MEDS: NICOTINE 7 MG/24 HOURS TOPICAL PATCH TD SCH (09:54)
[2021-12-27] MEDS: PRENATAL VITAMINS W/ FOLIC ACID TABLET (FP) PO SCH (09:54)
[2021-12-27] MEDS: ASPIRIN COATED 81 MG TABLET.EC PO SCH (09:54)
[2021-12-27] MEDS: SUVOREXANT 10 MG TABLET PO PRN (21:50)
[2021-12-27] MEDS: THIAMINE HCL 100 MG TABLET (FP) PO SCH (21:50)
[2021-12-28] MEDS: PRENATAL VITAMINS W/ FOLIC ACID TABLET (FP) PO SCH (10:39)
[2021-12-28] MEDS: HYDROCHLOROTHIAZIDE 12.5 MG CAPSULE (FP) PO SCH (10:39)
[2021-12-28] MEDS: NICOTINE 7 MG/24 HOURS TOPICAL PATCH TD SCH (10:39)
[2021-12-28] MEDS: ASPIRIN COATED 81 MG TABLET.EC PO SCH (10:39)
[2021-12-28] MEDS: ACETAMINOPHEN 325 MG TABLET (FP) PO PRN (10:40)
[2021-12-28] MEDS: COLLOIDAL OATMEAL 1 BAR EACH TP PRN (10:41)
[2021-12-28] MEDS: SUVOREXANT 10 MG TABLET PO PRN (21:49)
[2021-12-28] MEDS: THIAMINE HCL 100 MG TABLET (FP) PO SCH (21:49)
[2021-12-29] MEDS: PRENATAL VITAMINS W/ FOLIC ACID TABLET (FP) PO SCH (10:29)
[2021-12-29] MEDS: NICOTINE 7 MG/24 HOURS TOPICAL PATCH TD SCH (10:29)
[2021-12-29] MEDS: ASPIRIN COATED 81 MG TABLET.EC PO SCH (10:30)
[2021-12-29] MEDS: HYDROCHLOROTHIAZIDE 12.5 MG CAPSULE (FP) PO SCH (10:30)
[2021-12-29] MEDS: THIAMINE HCL 100 MG TABLET (FP) PO SCH (22:51)
[2021-12-29] MEDS: SUVOREXANT 10 MG TABLET PO PRN (22:51)
[2021-12-29] MEDS: IBUPROFEN 400 MG TABLET (FP) PO PRN (22:52)
[2021-12-30] MEDS: ASPIRIN COATED 81 MG TABLET.EC PO SCH (09:40)
[2021-12-30] MEDS: HYDROCHLOROTHIAZIDE 12.5 MG CAPSULE (FP) PO SCH (09:40)
[2021-12-30] MEDS: PRENATAL VITAMINS W/ FOLIC ACID TABLET (FP) PO SCH (09:41)
[2021-12-30] MEDS: NICOTINE 7 MG/24 HOURS TOPICAL PATCH TD SCH (09:41)
[2021-12-30] MEDS: TOLNAFTATE 1% CREAM 15 GM TUBE TP SCH ×2 (14:37→21:25)
[2021-12-30] MEDS: SUVOREXANT 10 MG TABLET PO PRN (21:25)
[2021-12-30] MEDS: THIAMINE HCL 100 MG TABLET (FP) PO SCH (21:25)
[2021-12-31 07:19] VITALS: BP 151/101; PULSE 71; TEMP 97.1
[2021-12-31] MEDS: ASPIRIN COATED 81 MG TABLET.EC PO SCH (10:10)
[2021-12-31] MEDS: NICOTINE 7 MG/24 HOURS TOPICAL PATCH TD SCH (10:10)
[2021-12-31] MEDS: PRENATAL VITAMINS W/ FOLIC ACID TABLET (FP) PO SCH (10:10)
[2021-12-31] MEDS: TOLNAFTATE 1% CREAM 15 GM TUBE TP SCH (10:10)
[2021-12-31] MEDS: HYDROCHLOROTHIAZIDE 12.5 MG CAPSULE (FP) PO SCH (10:10)
== END 2021-12-31 10:17 | disposition home or self-care (01) | DRG 772 ==
LOC: YASAS 15:39 → Y5N 15:40
PROVIDERS: ADMIT Allergy & Immunology; ATTEND Psychiatry & Neurology Pain Medicine
PROC: HZ42ZZZ Group Counseling for Substance Abuse Treatment, Cognitive-Behavioral (ICD-10-PCS; principal; 2021-12-13)
DX: F10.20 Alcohol dependence, uncomplicated (principal); F10.282 Alcohol dependence with alcohol-induced sleep disorder; F32.A Depression, unspecified; I10 Essential (primary) hypertension; M54.50 Low back pain, unspecified; G89.29 Other chronic pain; E66.9 Obesity, unspecified; Z68.35 Body mass index [BMI] 35.0-35.9, adult; Z56.0 Unemployment, unspecified; Z59.00 Homelessness unspecified
CPT/HCPCS: 93005; 93010; C9803-CS; J0735; U0003; U0005

== ENCOUNTER 2022-05-31 13:23 | Inpatient (IN) | payer OTHER ==
[2022-05-31 14:11] VITALS: BMI 32.9
[2022-05-31] MEDS ORDERED: BENZOCAINE/MENTHOL (CHLORASEPTIC ) LOZENGE MM PRN (16:42)
[2022-05-31] MEDS ORDERED: chlordiazePOXIDE HCL 25 MG CAPSULE PO PRN (16:42)
[2022-05-31] MEDS ORDERED: DICYCLOMINE HCL 10 MG CAPSULE PO PRN (16:42)
[2022-05-31] MEDS ORDERED: MAG HYDROX/AL HYDROX/SIMETH 30 ML UNIT-DOSE CUP PO PRN (16:42)
[2022-05-31] MEDS ORDERED: LOPERAMIDE HCL 2 MG CAPSULE PO PRN (16:42)
[2022-05-31] MEDS ORDERED: ONDANSETRON *ODT* 4 MG TABLET SL PRN (16:42)
[2022-05-31] MEDS ORDERED: MAGNESIUM HYDROX 2400MG/30ML ORAL SUSPENSION 30 ML CUP PO PRN (16:42)
[2022-05-31] MEDS ORDERED: ACETAMINOPHEN 325 MG TABLET (FP) PO PRN ×2 (16:42)
[2022-05-31] MEDS ORDERED: BISMUTH SUBSALICYLATE 524 MG/30 ML PO PRN (16:42)
[2022-05-31] MEDS ORDERED: IBUPROFEN 400 MG TABLET (FP) PO PRN (16:42)
[2022-05-31] MEDS ORDERED: cloNIDine HCL 0.1 MG TABLET PO ONE (16:55)
[2022-05-31] MEDS ORDERED: chlordiazePOXIDE HCL 25 MG CAPSULE ONE (17:01)
[2022-05-31] MEDS ORDERED: cloNIDine HCL 0.1 MG TABLET ONE (17:01)
[2022-05-31] MEDS: chlordiazePOXIDE HCL 25 MG CAPSULE PO SCH ×2 (17:02→23:00)
[2022-05-31] MEDS: hydrOXYzine PAMOATE 25 MG CAPSULE (FP) PO PRN ×2 (17:02→23:00)
[2022-05-31] MEDS ORDERED: hydrOXYzine PAMOATE 25 MG CAPSULE (FP) PO ONE (17:02)
[2022-05-31] MEDS: THIAMINE HCL 100 MG TABLET (FP) PO SCH (23:00)
[2022-05-31] MEDS: MELATONIN 5 MG TABLETS PO SCH (23:00)
[2022-05-31] MEDS: METHOCARBAMOL 500 MG TABLET PO PRN (23:00)
[2022-06-01] MEDS: hydrOXYzine PAMOATE 25 MG CAPSULE (FP) PO PRN ×2 (05:53→22:32)
[2022-06-01] MEDS: chlordiazePOXIDE HCL 25 MG CAPSULE PO SCH ×2 (05:53→10:45)
[2022-06-01] MEDS: METHOCARBAMOL 500 MG TABLET PO PRN ×2 (05:56→22:32)
[2022-06-01] MEDS: IBUPROFEN 600 MG TABLET (FP) PO PRN (10:45)
[2022-06-01] MEDS: PRENATAL VITAMINS W/ FOLIC ACID TABLET (FP) PO SCH (10:45)
[2022-06-01 12:18] LABS: CALCIUM 8.5 mg/dL (8.5-10.1)
[2022-06-01 12:19] LABS: ALBUMIN 3.3 g/dl (3.4-5.0)
[2022-06-01 12:22] LABS: CREATININE 0.8 mg/dL (0.55-1.3)
[2022-06-01 12:23] LABS: TOT PROT 7.8 g/dl (6.4-8.2)
[2022-06-01 12:25] LABS: HEMATOCRIT 38.5 % (32.4-45.2); MCH 31.1 pg (25.7-33.7); MCHC 33.7 g/dl (32.0-36.0); MEAN CELL VOLUME 92.2 fl (80-96); PLATELET COUNT 50 10^3/uL (134-434); RBC 4.18 M/mm3 (3.60-5.2); RDW 15.8 % (11.6-15.6); WHITE BLOOD COUNT 2.2 K/mm3 (4.0-10.0)
[2022-06-01] MEDS ORDERED: LORazepam 1 MG TABLET PO PRN (13:13)
[2022-06-01] MEDS: ASPIRIN COATED 81 MG TABLET.EC PO SCH (13:21)
[2022-06-01] MEDS: HYDROCHLOROTHIAZIDE 12.5 MG CAPSULE (FP) PO SCH (13:29)
[2022-06-01] MEDS ORDERED: POTASSIUM CHLORIDE ORAL LIQUID 20 MEQ/15 ML PO ONE ×2 (13:30→17:30)
[2022-06-01] MEDS: LORazepam 2 MG TABLET PO SCH ×2 (17:45→22:33)
[2022-06-01] MEDS: THIAMINE HCL 100 MG TABLET (FP) PO SCH (22:32)
[2022-06-01] MEDS: MELATONIN 5 MG TABLETS PO SCH (22:33)
[2022-06-02] MEDS ORDERED: chlordiazePOXIDE HCL 25 MG CAPSULE PO SCH (05:00)
[2022-06-02] MEDS: LORazepam 2 MG TABLET PO SCH ×4 (06:08→22:24)
[2022-06-02] MEDS: PRENATAL VITAMINS W/ FOLIC ACID TABLET (FP) PO SCH (10:04)
[2022-06-02] MEDS: ASPIRIN COATED 81 MG TABLET.EC PO SCH (10:04)
[2022-06-02] MEDS: IBUPROFEN 600 MG TABLET (FP) PO PRN (10:06)
[2022-06-02] MEDS: METHOCARBAMOL 500 MG TABLET PO PRN (10:06)
[2022-06-02] MEDS: HYDROCHLOROTHIAZIDE 12.5 MG CAPSULE (FP) PO SCH (10:32)
[2022-06-02 12:55] LABS: BILIRUBIN,TOTAL 1.1 mg/dL (0.2-1)
[2022-06-02] MEDS: THIAMINE HCL 100 MG TABLET (FP) PO SCH (22:23)
[2022-06-02] MEDS: hydrOXYzine PAMOATE 25 MG CAPSULE (FP) PO PRN (22:23)
[2022-06-02] MEDS: MELATONIN 5 MG TABLETS PO SCH (22:23)
[2022-06-03] MEDS ORDERED: chlordiazePOXIDE HCL 10 MG CAPSULE PO PRN
[2022-06-03] MEDS ORDERED: chlordiazePOXIDE HCL 10 MG CAPSULE PO SCH (05:00)
[2022-06-03] MEDS: LORazepam 1 MG TABLET PO SCH ×4 (05:57→22:46)
[2022-06-03] MEDS ORDERED: POTASSIUM CHLORIDE TABS 20 MEQ TABLET.ER (FP) PO SCH (10:00)
[2022-06-03] MEDS: ASPIRIN COATED 81 MG TABLET.EC PO SCH (10:35)
[2022-06-03] MEDS: HYDROCHLOROTHIAZIDE 12.5 MG CAPSULE (FP) PO SCH (10:35)
[2022-06-03] MEDS: POTASSIUM CHLORIDE TABS 20 MEQ TABLET.ER (FP) PO SCH (10:35)
[2022-06-03] MEDS: PRENATAL VITAMINS W/ FOLIC ACID TABLET (FP) PO SCH (10:35)
[2022-06-03] MEDS: THIAMINE HCL 100 MG TABLET (FP) PO SCH (22:46)
[2022-06-03] MEDS: MELATONIN 5 MG TABLETS PO SCH (22:46)
[2022-06-04] MEDS ORDERED: LORazepam 0.5 MG TABLET PO PRN
[2022-06-04] MEDS ORDERED: chlordiazePOXIDE HCL 10 MG CAPSULE PO SCH (05:00)
[2022-06-04] MEDS: LORazepam 0.5 MG TABLET PO SCH ×4 (05:34→22:28)
[2022-06-04] MEDS: ASPIRIN COATED 81 MG TABLET.EC PO SCH (10:14)
[2022-06-04] MEDS: HYDROCHLOROTHIAZIDE 12.5 MG CAPSULE (FP) PO SCH (10:14)
[2022-06-04] MEDS: PRENATAL VITAMINS W/ FOLIC ACID TABLET (FP) PO SCH (10:14)
[2022-06-04] MEDS: POTASSIUM CHLORIDE TABS 20 MEQ TABLET.ER (FP) PO SCH (10:15)
[2022-06-04] MEDS: METHOCARBAMOL 500 MG TABLET PO PRN ×2 (10:15→22:28)
[2022-06-04 17:28] VITALS: RESP 18
[2022-06-04] MEDS: hydrOXYzine PAMOATE 25 MG CAPSULE (FP) PO PRN ×2 (17:55→22:28)
[2022-06-04] MEDS: MELATONIN 5 MG TABLETS PO SCH (22:28)
[2022-06-04] MEDS: THIAMINE HCL 100 MG TABLET (FP) PO SCH (22:28)
[2022-06-05] MEDS ORDERED: LORazepam 0.5 MG TABLET PO ONE (05:00)
[2022-06-05] MEDS ORDERED: chlordiazePOXIDE HCL 10 MG CAPSULE PO ONE (05:00)
[2022-06-05 09:38] VITALS: BP 137/98; PULSE 88; TEMP 97.1
[2022-06-05] MEDS: POTASSIUM CHLORIDE TABS 20 MEQ TABLET.ER (FP) PO SCH (10:08)
[2022-06-05] MEDS: PRENATAL VITAMINS W/ FOLIC ACID TABLET (FP) PO SCH (10:08)
[2022-06-05] MEDS: ASPIRIN COATED 81 MG TABLET.EC PO SCH (10:08)
[2022-06-05] MEDS: HYDROCHLOROTHIAZIDE 12.5 MG CAPSULE (FP) PO SCH (10:09)
[2022-06-05] MEDS: METHOCARBAMOL 500 MG TABLET PO PRN (10:10)
[2022-06-05] MEDS: IBUPROFEN 600 MG TABLET (FP) PO PRN (10:10)
== END 2022-06-05 11:27 | disposition home or self-care (01) | DRG 775 ==
LOC: YASAS 13:23 → Y6N 17:54
PROVIDERS: ADMIT Allergy & Immunology; ATTEND Surgery
PROC: HZ2ZZZZ Detoxification Services for Substance Abuse Treatment (ICD-10-PCS; principal; 2022-06-01)
DX: F10.230 Alcohol dependence with withdrawal, uncomplicated (principal); F10.282 Alcohol dependence with alcohol-induced sleep disorder; F10.24 Alcohol dependence with alcohol-induced mood disorder; F32.A Depression, unspecified; I10 Essential (primary) hypertension; G47.00 Insomnia, unspecified; M54.50 Low back pain, unspecified; G89.29 Other chronic pain; E66.9 Obesity, unspecified; Z68.32 Body mass index [BMI] 32.0-32.9, adult
CPT/HCPCS: 36415; 80053; 81025; 82247; 84132; 85027; 86780; 87811; C9803-CS; U0003; U0005

== ENCOUNTER 2022-06-06 08:20 | Inpatient (IN) | payer OTHER ==
[2022-06-06] MEDS ORDERED: SODIUM CHLORIDE 0.9% 500 ML INFUS.BAG IV ONE (09:13)
[2022-06-06] MEDS ORDERED: THIAMINE HCL 200 MG/2 ML VIAL IVPB ONE (09:13)
[2022-06-06 09:21] VITALS: BMI 34.0
[2022-06-06] MEDS ORDERED: FOLIC ACID 1 MG TABLET (FP) PO ONE (09:21)
[2022-06-06 10:25] LABS: EPI CELLS >36 /uL (0-25.1); HYALINE CASTS 1 /uL (0-3.1); URINE APPEARANCE CLEAR; URINE BACTERIA 660 /uL (0-1359); URINE BILIRUBIN NEGATIVE (NEGATIVE); URINE COLOR YELLOW; URINE GLUCOSE (UA) NEGATIVE (NEGATIVE); URINE KETONE NEGATIVE (NEGATIVE); URINE LEUK ESTERASE 1+ (NEGATIVE); URINE NITRITE NEGATIVE (NEGATIVE); URINE PROTEIN NEGATIVE (NEGATIVE); URINE RBC 7 /uL (0-23.9); URINE UROBILINOGEN 0.2 mg/dL (0.2-1.0); URINE WBC 20 /uL (0-25.8)
[2022-06-06] MEDS ORDERED: FOLIC ACID 1 MG TABLET (FP) ONE (10:44)
[2022-06-06] MEDS ORDERED: THIAMINE HCL 200 MG/2 ML VIAL ONE (10:44)
[2022-06-06 11:01] LABS: VENOUS BASE EXCESS 0.8 mmol/L (-2-2); VENOUS O2 SATURATION 51.2 % (70-80); VENOUS PCO2 57.1 mmHg (38-52); VENOUS PH 7.312 (7.310-7.410)
[2022-06-06 11:05] LABS: BASO % 0.7 % (0-2.0); EOS % 1.7 % (0-4.5); HEMATOCRIT 37.5 % (32.4-45.2); HEMOGLOBIN 12.4 GM/dL (10.7-15.3); LYMPH % 43.4 % (8-40); MCH 30.8 pg (25.7-33.7); MCHC 33.2 g/dl (32.0-36.0); MEAN PLT VOLUME 9.4 fl (7.5-11.1); MONO % 9.7 % (3.8-10.2); NEUT % 44.5 % (42.8-82.8); PLATELET COUNT 65 10^3/uL (134-434); RBC 4.03 M/mm3 (3.60-5.2); RDW 16.1 % (11.6-15.6); WHITE BLOOD COUNT 3.9 K/mm3 (4.0-10.0)
[2022-06-06 11:17] LABS: INR 1.06 (0.83-1.09); PROTHROMBIN TIME (PATIENT) 12.2 SEC (9.7-13.0)
[2022-06-06 11:20] LABS: ACTIVATED PTT 34.4 SECONDS (25.2-36.5)
[2022-06-06 11:28] LABS: CALCIUM 8.6 mg/dL (8.5-10.1)
[2022-06-06 11:29] LABS: ALBUMIN 3.4 g/dl (3.4-5.0); MAGNESIUM 2.3 mg/dL (1.8-2.4)
[2022-06-06 11:32] LABS: CREATININE 1.5 mg/dL (0.55-1.3); PHOSPHOROUS 5.1 mg/dL (2.5-4.9)
[2022-06-06 11:33] LABS: TOT PROT 7.7 g/dl (6.4-8.2)
[2022-06-06 11:34] LABS: BILIRUBIN,TOTAL 0.5 mg/dL (0.2-1)
[2022-06-06 13:08] LABS: HCG,QUALITATIVE URINE Negative
[2022-06-06 13:21] LABS: BLOOD UREA NITROGEN 31.2 mg/dL (7-18)
[2022-06-06] MEDS ORDERED: POTASSIUM CHLORIDE TABS 20 MEQ TABLET.ER (FP) PO ONE ×2 (14:18→22:00)
[2022-06-06] MEDS ORDERED: KCL 10 MEQ IVPB 10 MEQ/100 ML INFUS.BAG IVPB SCH (14:30)
[2022-06-06] MEDS ORDERED: FOLIC ACID INJECTION - 1 MG, THIAMINE HCL 100 MG, MULTIVIT INJECTION ADULT 10 ML in SOD... IVPB ONE (15:00)
[2022-06-07] MEDS: SODIUM CHLORIDE 1,000 ML IV SCH ×2 (09:33→23:44)
[2022-06-07] MEDS ORDERED: LORazepam 1 MG TABLET PO PRN (09:43)
[2022-06-07] MEDS: LORazepam 1 MG TABLET PO SCH ×3 (10:04→23:48)
[2022-06-07] MEDS: THIAMINE HCL 200 MG/2 ML VIAL IVPB SCH (10:05)
[2022-06-08] MEDS: LORazepam 1 MG TABLET PO SCH ×4 (06:25→22:11)
[2022-06-08] MEDS: THIAMINE HCL 200 MG/2 ML VIAL IVPB SCH (09:40)
[2022-06-08 10:12] LABS: BASO % 1.1 % (0-2.0); EOS % 1.8 % (0-4.5); HEMATOCRIT 32.9 % (32.4-45.2); HEMOGLOBIN 11.1 GM/dL (10.7-15.3); LYMPH % 36.8 % (8-40); MCH 31.4 pg (25.7-33.7); MCHC 33.7 g/dl (32.0-36.0); MEAN CELL VOLUME 93.3 fl (80-96); MEAN PLT VOLUME 8.8 fl (7.5-11.1); MONO % 13.1 % (3.8-10.2); NEUT % 47.2 % (42.8-82.8); PLATELET COUNT 57 10^3/uL (134-434); RBC 3.52 M/mm3 (3.60-5.2); RDW 15.9 % (11.6-15.6); WHITE BLOOD COUNT 2.2 K/mm3 (4.0-10.0)
[2022-06-08 10:36] LABS: BLOOD UREA NITROGEN 13.4 mg/dL (7-18); CALCIUM 8.1 mg/dL (8.5-10.1); MAGNESIUM 1.6 mg/dL (1.8-2.4)
[2022-06-08 10:40] LABS: CREATININE 0.8 mg/dL (0.55-1.3); PHOSPHOROUS 1.8 mg/dL (2.5-4.9)
[2022-06-08 10:42] LABS: BILIRUBIN,TOTAL 1.6 mg/dL (0.2-1); TOT PROT 6.1 g/dl (6.4-8.2)
[2022-06-08 10:43] LABS: ALBUMIN 2.7 g/dl (3.4-5.0)
[2022-06-08] MEDS ORDERED: MAGNESIUM SULF 50% (8.12 MEQ/2 ML-1 GM VIAL) IVPB ONE (11:32)
[2022-06-08] MEDS ORDERED: SODIUM PHOSPHATE - 30 MM in SODIUM CHLORIDE 500 ML IVPB ONE (12:00)
[2022-06-09] MEDS: LORazepam 1 MG TABLET PO SCH ×4 (05:54→22:10)
[2022-06-09] MEDS: THIAMINE HCL 200 MG/2 ML VIAL IVPB SCH (10:41)
[2022-06-09 12:13] LABS: CALCIUM 8.1 mg/dL (8.5-10.1)
[2022-06-09 12:14] LABS: ALBUMIN 2.9 g/dl (3.4-5.0); BLOOD UREA NITROGEN 10.9 mg/dL (7-18)
[2022-06-09 12:17] LABS: CREATININE 0.7 mg/dL (0.55-1.3)
[2022-06-09 12:19] LABS: BILIRUBIN,TOTAL 1.1 mg/dL (0.2-1); TOT PROT 6.6 g/dl (6.4-8.2)
[2022-06-09 12:27] LABS: BASO % 0.9 % (0-2.0); EOS % 1.8 % (0-4.5); HEMATOCRIT 34.8 % (32.4-45.2); HEMOGLOBIN 11.5 GM/dL (10.7-15.3); LYMPH % 27.6 % (8-40); MCH 30.7 pg (25.7-33.7); MEAN CELL VOLUME 93.2 fl (80-96); MEAN PLT VOLUME 9.3 fl (7.5-11.1); MONO % 13.5 % (3.8-10.2); NEUT % 56.2 % (42.8-82.8); PLATELET COUNT 84 10^3/uL (134-434); RBC 3.74 M/mm3 (3.60-5.2); RDW 15.4 % (11.6-15.6); WHITE BLOOD COUNT 3.2 K/mm3 (4.0-10.0)
[2022-06-09] MEDS ORDERED: IBUPROFEN 400 MG TABLET (FP) PO PRN (13:57)
[2022-06-09] MEDS ORDERED: METHOCARBAMOL 500 MG TABLET PO PRN (13:57)
[2022-06-09] MEDS ORDERED: NICOTINE 10 MG CARTRIDGE (INHALER) IH PRN (13:57)
[2022-06-09] MEDS ORDERED: LOPERAMIDE HCL 2 MG CAPSULE PO PRN (13:57)
[2022-06-09] MEDS ORDERED: IBUPROFEN 600 MG TABLET (FP) PO PRN (13:57)
[2022-06-09] MEDS ORDERED: DICYCLOMINE HCL 10 MG CAPSULE PO PRN (13:57)
[2022-06-09] MEDS ORDERED: ONDANSETRON *ODT* 4 MG TABLET SL PRN (13:57)
[2022-06-09] MEDS ORDERED: POLYETHYLENE GLYCOL (HEALTHYLAX) 3350 17 GM PACKET PO PRN (13:57)
[2022-06-09] MEDS ORDERED: hydrOXYzine PAMOATE 25 MG CAPSULE (FP) PO PRN (13:57)
[2022-06-09] MEDS ORDERED: MAG HYDROX/AL HYDROX/SIMETH 30 ML UNIT-DOSE CUP PO PRN (13:57)
[2022-06-09] MEDS ORDERED: BENZOCAINE/MENTHOL (CHLORASEPTIC ) LOZENGE MM PRN (13:57)
[2022-06-09] MEDS ORDERED: BISMUTH SUBSALICYLATE 524 MG/30 ML PO PRN (13:57)
[2022-06-09] MEDS ORDERED: MAGNESIUM HYDROX 2400MG/30ML ORAL SUSPENSION 30 ML CUP PO PRN (13:57)
[2022-06-09] MEDS: PRENATAL VITAMINS W/ FOLIC ACID TABLET (FP) PO SCH (17:35)
[2022-06-09] MEDS: MELATONIN 5 MG TABLETS PO SCH (22:10)
[2022-06-09] MEDS: THIAMINE HCL 100 MG TABLET (FP) PO SCH ×2 (22:10)
[2022-06-10] MEDS ORDERED: LORazepam 0.5 MG TABLET PO PRN
[2022-06-10] MEDS: LORazepam 0.5 MG TABLET PO SCH ×4 (05:47→22:24)
[2022-06-10] MEDS: THIAMINE HCL 100 MG TABLET (FP) PO SCH ×3 (09:13→22:23)
[2022-06-10] MEDS: PRENATAL VITAMINS W/ FOLIC ACID TABLET (FP) PO SCH (09:13)
[2022-06-10 10:19] VITALS: RESP 20
[2022-06-10 10:57] LABS: BASO % 0.9 % (0-2.0); EOS % 1.5 % (0-4.5); HEMATOCRIT 34.8 % (32.4-45.2); HEMOGLOBIN 11.6 GM/dL (10.7-15.3); LYMPH % 32.2 % (8-40); MCHC 33.4 g/dl (32.0-36.0); MEAN CELL VOLUME 92.9 fl (80-96); MEAN PLT VOLUME 9.4 fl (7.5-11.1); NEUT % 51.4 % (42.8-82.8); PLATELET COUNT 91 10^3/uL (134-434); RBC 3.74 M/mm3 (3.60-5.2); RDW 15.8 % (11.6-15.6); WHITE BLOOD COUNT 3.7 K/mm3 (4.0-10.0)
[2022-06-10 11:30] LABS: ALBUMIN 2.8 g/dl (3.4-5.0); CALCIUM 8.5 mg/dL (8.5-10.1)
[2022-06-10 11:31] LABS: BLOOD UREA NITROGEN 10.1 mg/dL (7-18)
[2022-06-10 11:34] LABS: CREATININE 0.7 mg/dL (0.55-1.3)
[2022-06-10 11:35] LABS: BILIRUBIN,TOTAL 1.2 mg/dL (0.2-1); TOT PROT 6.4 g/dl (6.4-8.2)
[2022-06-10] MEDS: MELATONIN 5 MG TABLETS PO SCH (22:22)
[2022-06-11] MEDS ORDERED: LORazepam 0.5 MG TABLET PO ONE (05:00)
[2022-06-11 06:32] VITALS: BP 143/90; PULSE 62; TEMP 99.1
[2022-06-11] MEDS: THIAMINE HCL 100 MG TABLET (FP) PO SCH (09:38)
[2022-06-11] MEDS: PRENATAL VITAMINS W/ FOLIC ACID TABLET (FP) PO SCH (09:38)
[2022-06-11] MEDS ORDERED: PANTOPRAZOLE 40 MG TABLET PO SCH (10:00)
[2022-06-11] MEDS ORDERED: ENOXAPARIN NA (PORCINE) 40 MG/0.4 ML DISP.SYRIN SQ SCH (10:00)
== END 2022-06-11 13:28 | disposition home or self-care (01) | DRG 775 ==
LOC: JER 08:20 → JERBED 13:39 → INTOOBSV 13:39 → J8W 16:53 → OBSVTOIN 06-10 13:25
PROVIDERS: ADMIT Internal Medicine; ATTEND Internal Medicine
DX: F10.220 Alcohol dependence with intoxication, uncomplicated (principal); I10 Essential (primary) hypertension; F10.230 Alcohol dependence with withdrawal, uncomplicated; K70.10 Alcoholic hepatitis without ascites; D72.820 Lymphocytosis (symptomatic); D72.819 Decreased white blood cell count, unspecified; Y90.8 Blood alcohol level of 240 mg/100 ml or more; R74.01 Elevation of levels of liver transaminase levels; F32.A Depression, unspecified; E83.39 Other disorders of phosphorus metabolism; E83.42 Hypomagnesemia
CPT/HCPCS: 0241U-QW; 36415; 70450-TC; 71045-TC-FY; 72125-TC; 72128-TC; 72131-TC; 72170-TC-FY; 80053; 80307; 81003; 82140; 82803; 82962; 83605; 83690; 83735; 84100; 84484; 84702; 84703; 85025; 85610; 85730; 86850; 86900; 86901; 87040; 87086; 93005; 93010; 97116-GP; 97161-GP; 99285-25; G0378